=== PATIENT | female | born 1975 | race Caucasian/White ===

== ENCOUNTER 2016-11-28 11:56 | Observation (INO) | payer OTHER ==
[2016-11-28] MEDS ORDERED: ASPIRIN 81 MG CHEW PO STA (12:43)
[2016-11-28] MEDS ORDERED: SODIUM CHLORIDE 0.9% 500 ML IV STA (12:43)
--- NOTE | 2016-11-28 12:54 | ED ---
Chest Pain HPI - General Chief Complaint: Chest Pain Stated Complaint: chest pain Time Seen by Provider: 11/28/16 12:39 Source: patient, RN notes reviewed Mode of arrival: ambulatory Limitations: no limitations - History of Present Illness Initial Comments: 40 yo female presents to the ER with cc of chest pain and left arm pain. Patient states that about 3 days ago she started to develop some nausea and some chest discomfort. This time the patient currently is having pain 6 out of 10. Patient states that she did have a syncopal episode at home as well and she fell forward. Patient states that her symptoms continued to occur on and off but now her chest and she does not when away. Patient states stabbing pain in the center and also feels like a heaviness. Patient states she does radiate down the left arm. Patient states that she has had nausea vomiting with this as well. Patient denies any fever chills cough cold runny nose. Patient denies any significant cardiac history and her family are with her besides high blood pressure. Patient stated she was concerned because her pain was just not going away so she thought that she should be evaluated. Patient denies any recent fever, chills, back pain, abdominal pain, nausea vomiting, numbness or tingling, dysuria or hematuria, constipation or diarrhea, headaches or visual changes, or any other current symptoms. - Related Data Home Medications Medication Instructions Recorded Confirmed Gabapentin [Neurontin] 300 mg PO TID 11/28/16 11/28/16 Ibuprofen [Motrin] 600 mg PO Q6HR PRN 11/28/16 11/28/16 Imipramine HCl [Tofranil] 50 mg PO DAILY 11/28/16 11/28/16 busPIRone HCL 15 mg PO BID 11/28/16 11/28/16 Allergies Allergy/AdvReac Type Severity Reaction Status Date / Time No Known Allergies Allergy Verified 07/31/16 21:05 Review of Systems ROS Statement: Those systems with pertinent positive or pertinent negative responses have been documented in the HPI. ROS Other: All systems not noted in ROS Statement are negative. EKG Findings - EKG Comments: EKG Findings:: normal sinus rhythm 98 bpm, normal axis, no atopy, no S-T depressions or elevations, Past Medical History Past Medical History: GERD/Reflux, Osteoarthritis (OA), Rheumatoid Arthritis (RA ) Additional Past Medical History / Comment(s): CHRONIC BACK PAIN, sjogrens History of Any Multi-Drug Resistant Organisms: None Reported Past Surgical History: Breast Surgery, Section, Tonsillectomy Additional Past Surgical History / Comment(s): LT BREAST BX. Past Anesthesia/Blood Transfusion Reactions: No Reported Reaction Past Psychological History: Anxiety, Panic Disorder Smoking Status: Current every day smoker Past Alcohol Use History: Occasional Additional Past Alcohol Use History / Comment(s): HX ETOH ABUSE. NO LONGER DRINKING AT ALL. Past Drug Use History: None Reported - Past Family History Father Family Medical History: CVA/TIA Additional Family Medical History / Comment(s): DAD= EMPHYZEMA. (MOM= HTN) Mother Family Medical History: Hypertension General Exam - General Exam Comments Initial Comments: General: The patient is awake and alert, in no distress, and does not appear acutely ill. Eye: Pupils are equal, round and reactive to light, extra-ocular movements are intact; there is normal conjunctiva bilaterally. No signs of icterus. Ears, nose, mouth and throat: There are moist mucous membranes and no oral lesions. Neck: The neck is supple, there is no tenderness. Cardiovascular: There is a regular rate and rhythm. No murmur, rub or gallop is appreciated. Ecchymosis to the chest wall. Respiratory: Lungs are clear to auscultation, respirations are non-labored, breath sounds are equal. No wheezes, stridor, rales, or rhonchi. Gastrointestinal: Soft, non-distended, non-tender abdomen without masses or organomegaly noted. There is no rebound or guarding present. No CVA tenderness. Bowel sounds are unremarkable. Back: There is no tenderness to palpation in the midline. There is no obvious deformity. No rashes noted. Musculoskeletal: Normal ROM, no tenderness, There is no pedal edema. There is no calf tenderness or swelling. Sensation intact. Pulses equal bilaterally 2+. Neurological: CN II-XII intact, There are no obvious motor or sensory deficits. Coordination appears grossly intact. Speech is normal. Skin: Skin is warm and dry and no rashes or lesions are noted. Psychiatric: Cooperative, appropriate mood & affect, normal judgment. Limitations: no limitations Course Vital Signs 11/28/16 11/28/16 11/28/16 12:19 13:00 13:11 Temperature 96.7 F L Pulse Rate 103 H 92 Pulse Rate [ 86 Rf Design Engineer ] Respiratory 20 20 Rate Blood Pressure 185/123 134/73 O2 Sat by Pulse 99 100 Oximetry 11/28/16 11/28/16 11/28/16 14:10 14:34 15:00 Temperature Pulse Rate 103 H 96 96 Pulse Rate [ Rf Design Engineer ] Respiratory 16 18 18 Rate Blood Pressure 135/78 145/76 153/75 O2 Sat by Pulse 100 100 99 Oximetry Chest Pain MDM - MDM 40-year-old female presents emergency Department chief complaint of chest pain and shortness of breath that radiates in left arm with a history of nausea. At this time the patient's lab work is reviewed that shows no acute findings. This time there is concerned due to the patient's multiple symptoms were cardiac in origin. This was opened the patient we will start her on appropriate medications and we will have cardiology see her for cardiac rule out. This is discussed with Dr. Karan navarro as well as Dr. Chavez who do agree with The plan. Disposition Clinical Impression: Unstable angina Disposition: ADMITTED IP TO THIS [facility] Condition: Stable Time of Disposition: 15: Decision Date: 11/28/16 Decision Time: 15:27
[2016-11-28 13:18] LABS: Amylase <30 U/L (30-110); Anion Gap 12 mmol/L; Calcium 9.6 mg/dL (8.4-10.2); Carbon Dioxide 25 mmol/L (22-30); Chloride 103 mmol/L (98-107); Glucose 83 mg/dL (74-99); Non-African American GFR(MDRD) >60 (>60 ml/min/1.73 sqM); Sodium 140 mmol/L (137-145); Total Bilirubin 1.3 mg/dL (0.2-1.3); Total Protein 8.3 g/dL (6.3-8.2)
[2016-11-28 13:19] LABS: ALT 39 U/L (9-52); AST 38 U/L (14-36); Alkaline Phosphatase 115 U/L (38-126); Blood Urea Nitrogen 9 mg/dL (7-17); Magnesium 1.5 mg/dL (1.6-2.3); Potassium 4.2 mmol/L (3.5-5.1)
[2016-11-28] MEDS ORDERED: NITROGLYCERIN SL TABS 0.4 MG TAB SUBLINGUAL STA (13:22)
[2016-11-28 13:26] LABS: Basophils % (A) 0 %; CH 31.7; CHCM 34.5; Eosinophils # (A) 0.2 k/uL (0-0.7); Eosinophils % (A) 2 %; HCT 43.9 % (34.0-46.0); HDW 2.82; HGB 14.9 gm/dL (11.4-16.0); Luc % (Auto) 2; Lymphocytes # (A) 1.3 k/uL (1.0-4.8); Lymphocytes % (A) 13 %; MCH 31.4 pg (25.0-35.0); MCV 92.5 fL (80.0-100.0); Mean Platelet Volume 7.1; Monocytes # (A) 0.9 k/uL (0-1.0); Monocytes % (A) 8 %; Neutrophils # (A) 7.9 k/uL (1.3-7.7); Neutrophils % (A) 75 %; RBC 4.75 m/uL (3.80-5.40); RDW 13.4 % (11.5-15.5); WBC 10.5 k/uL (3.8-10.6); WBC (Perox) 10.73
[2016-11-28 13:30] LABS: INR 1.1 (<1.1); Partial Thromboplastin Time 24.6 sec (22.0-30.0)
[2016-11-28 13:32] LABS: Creatine Kinase 36 U/L (30-135)
[2016-11-28 13:45] LABS: Creatine Kinase MB 0.5 ng/mL (0.0-2.4); Troponin I <0.012 ng/mL (0.000-0.034)
--- NOTE | 2016-11-28 14:00 | XR ---
EXAMINATION TYPE: XR chest 2V DATE OF EXAM: 11/28/2016 1:57 PM COMPARISON: Prior chest x-ray June 12, 2016. HISTORY: Chest pain today. TECHNIQUE: Frontal and lateral views of the chest are obtained. FINDINGS: Somewhat low lung volumes are redemonstrated. There is no focal air space opacity, pleural effusion, or pneumothorax seen. The cardiac silhouette size is within normal limits. The osseous structures are intact. IMPRESSION: No acute process. No significant change from prior.
[2016-11-28] MEDS ORDERED: MORPHINE SULFATE 4 MG/ML SYRINGE IV STA (14:13)
[2016-11-28] MEDS ORDERED: LORazepam 1 MG TAB PO STA (14:54)
[2016-11-28] MEDS ORDERED: NITROGLYCERIN SL TABS 0.4 MG TAB SUBLINGUAL PRN (15:27)
[2016-11-28] MEDS ORDERED: HEPARIN SODIUM,PORCINE 5,000 UNIT/ML 1 ML VIAL IV ONE (15:27)
[2016-11-28] MEDS ORDERED: IBUPROFEN 200 MG TAB PO PRN (15:29)
[2016-11-28] MEDS ORDERED: HEPARIN SODIUM,PORCINE/D5W PMX 25,000 UNIT in DEXTROSE/WATER 1 500ML.BAG IV SCH (15:30)
[2016-11-28] MEDS: SODIUM CHLORIDE 0.9% 1,000 ML IV SCH (16:49)
[2016-11-28] MEDS: MAGNESIUM SULFATE-D5W PMX 1 GM in DEXTROSE/WATER 1 100ML.BAG IVPB SCH (16:54)
[2016-11-28 17:58] VITALS: BMI 34.2
[2016-11-28] MEDS: traMADol 50 MG TAB PO PRN (18:46)
[2016-11-28 19:01] LABS: Creatine Kinase 37 U/L (30-135)
[2016-11-28 19:14] LABS: Creatine Kinase MB 0.4 ng/mL (0.0-2.4); Troponin I <0.012 ng/mL (0.000-0.034)
[2016-11-28] MEDS: NITROGLYCERIN OINT 1 INCH/GM PACKET TOPICAL SCH (20:39)
--- NOTE | 2016-11-28 21:07 | HP ---
DATE OF ADMISSION: 11/28/2016 Patient is a 40 -year-old female, came in with chest discomfort. The patient had a fall. Patient has a bruise on the chest and patient was complaining of heaviness of the chest, 6/10, constant in nature, not associated with diaphoresis, nausea, vomiting. Patient's chest pain is mostly related to bruise but since it is radiating to the left arm, patient came to ER. Patient had syncopal episode about a week ago. At that time, patient was having diarrhea. The patient appears to have ( ) at that time and her diarrhea resolved. The patient is although still having upper GI symptoms of nausea and epigastric abdominal burning sensation. Patient uses naproxen for her back. Patient probably has gastritis, both gastritis as well as gastroenteritis and food poisoning. Because of patient was probably dehydrated a little bit and had a syncopal episode. Patient denied any lightheadedness at this point of time. Patient denied any fever or chills. Patient denied any nausea, vomiting at this point of time. Patient denied any diarrhea. Patient was a little nauseous. REVIEW OF SYSTEMS: CONSTITUTIONAL: No fever, no malaise, no fatigue. HEENT: No recent visual problems or hearing problems. Denied any sore throat. CARDIOVASCULAR: as described in HPI. PULMONARY: No shortness of breath, no cough, no hemoptysis. GASTROINTESTINAL: as described in HPI. The patient denied orthopnea, PND. NEUROLOGICAL: No headaches, no weakness, no numbness. HEMATOLOGICAL: Denies any bleeding or petechiae. GENITOURINARY: Denies any burning micturition, frequency, or urgency. MUSCULOSKELETAL/RHEUMATOLOGICAL: Denies any joint pain, swelling, or any muscle pain. ENDOCRINE: Denies any polyuria or polydipsia. The rest of the 14 point review of systems is negative. ALLERGIES: No known drug allergies. PAST MEDICAL HISTORY: Significant for gastroesophageal reflux disease, osteoarthritis, rheumatoid arthritis. Patient does use Prilosec at home, breast surgery, section, tonsillectomy, anxiety, panic disorder. The patient does smoke. Denied any alcohol abuse or any drug abuse. The patient used to be an alcoholic, she quit years ago. FAMILY HISTORY: Significant for father with CVA. Mother had hypertension. PHYSICAL EXAMINATION: Temperature 97.6, pulse of 102. The patient pulse goes up to as high as 103, and respiratory rate of 20, blood pressure 134/73. Saturating at 100% on room air. GENERAL: The patient is alert and oriented x3, not in any acute distress. Well developed, well nourished. HEENT: Pupils are round and equally reacting to light. EOMI. No scleral icterus. No conjunctival pallor. Normocephalic, atraumatic. No pharyngeal erythema. No thyromegaly. CARDIOVASCULAR: S1 and S2 present. No murmurs, rubs, or gallops. PULMONARY: Chest is clear to auscultation, no wheezing or crackles. ABDOMEN: Soft, nontender, nondistended, normoactive bowel sounds. No palpable organomegaly. MUSCULOSKELETAL: No joint swelling or deformity. EXTREMITIES: No cyanosis, clubbing, or pedal edema. NEUROLOGICAL: Gross neurological examination did not reveal any focal deficits. SKIN: No rashes. Chest wall examination, patient has a bruise with tenderness on palpation in the bruising area after a fall. LABORATORY DATA: CBC, CMP are abnormal for mildly low magnesium of 1.5, which will be replaced. Laboratory data essentially within normal limits. ASSESSMENT AND PLAN: 1. Syncopal episode probably related to her diarrhea at that time and patient does not have any of those symptoms at this point of time. I will obtain an echocardiogram, but I will not need any further evaluation I believe. 2. Chest wall pain, appears to be completely atypical and related to bruise, cardiology was consulted anyways. We will let them evaluate. We will check with 2 more sets of troponins. I do not believe patient will need any further evaluation for her chest pain. 3. Possible gastritis and gastroenteritis. I asked her to discontinue Motrin. Patient can use tramadol for pain on an as-needed basis and Extra-Strength Tylenol and patient has chronic low back pain. Her ibuprofen will be discontinued and patient will be started on Protonix twice a day here and patient probably will need ( ) patient already takes Prilosec at home. Need to continue that at 40 mg daily for about a month. 4. 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 Patient's primary care physician: None.
[2016-11-28] MEDS: MORPHINE SULFATE 4 MG/ML SYRINGE IV PRN (21:09)
[2016-11-28] MEDS: GABAPENTIN 300 MG CAP PO SCH ×2 (21:41→21:42)
[2016-11-28] MEDS: PANTOPRAZOLE 40 MG/10 ML VIAL IVP SCH (21:42)
[2016-11-28] MEDS: LORazepam 2 MG/ML SYRINGE IV PRN (21:42)
[2016-11-28] MEDS: busPIRone HCl 5 MG TAB PO SCH (21:42)
[2016-11-29] MEDS: NITROGLYCERIN OINT 1 INCH/GM PACKET TOPICAL SCH ×3 (00:07→12:34)
[2016-11-29 00:55] LABS: Cholesterol 181 mg/dL (<200); HDL Cholesterol 70 mg/dL (40-60); Triglycerides 173 mg/dL (<150)
[2016-11-29 00:58] LABS: Creatine Kinase 40 U/L (30-135)
[2016-11-29 01:13] LABS: Creatine Kinase MB 0.5 ng/mL (0.0-2.4); Troponin I <0.012 ng/mL (0.000-0.034)
[2016-11-29] MEDS: MORPHINE SULFATE 4 MG/ML SYRINGE IV PRN ×2 (02:59→07:57)
[2016-11-29] MEDS: SODIUM CHLORIDE 0.9% 1,000 ML IV SCH (06:40)
[2016-11-29] MEDS ORDERED: IMIPRAMINE 25 MG TAB PO SCH (09:00)
[2016-11-29] MEDS ORDERED: ASPIRIN 325 MG TAB PO SCH (09:00)
--- NOTE | 2016-11-29 09:09 | P.CRDCN ---
History of Present Illness Consult date: 11/29/16 Chief complaint: Chest pain History of present illness: This is a pleasant 40-year-old female patient with no significant past medical history but and anxiety presented to the emergency room complaining of chest discomfort. She describes discomfort in the mid of the chest as a sharp kind of discomfort with radiation to the left arm. She was feeling nauseated and she vomited earlier in the week. No shortness of breath. No sweating. The EKG and cardiac enzymes came in to be unremarkable. The patient is not aware of any prior history of coronary artery disease and never seen a dental technician metal in the past. She has no hypertension, diabetes, or dyslipidemia. She doesn't smoke about 4 cigarettes a day and does not drink alcohol. She has no family history of coronary artery disease. I'm going to schedule the patient to undergo stress test and follow-up with her. Past Medical History Past Medical History: GERD/Reflux, Osteoarthritis (OA), Rheumatoid Arthritis (RA ) Additional Past Medical History / Comment(s): CHRONIC BACK PAIN, Sjogrens History of Any Multi-Drug Resistant Organisms: None Reported Past Surgical History: Breast Surgery, Section, Tonsillectomy Additional Past Surgical History / Comment(s): LT BREAST BX. Past Anesthesia/Blood Transfusion Reactions: No Reported Reaction Past Psychological History: Anxiety, Panic Disorder Additional Psychological History / Comment(s): recently began treatment for anxiety Smoking Status: Current some day smoker Past Alcohol Use History: None Reported Additional Past Alcohol Use History / Comment(s): HX ETOH ABUSE. NO LONGER DRINKING AT ALL. Past Drug Use History: None Reported - Past Family History Father Family Medical History: CVA/TIA Additional Family Medical History / Comment(s): DAD= EMPHYZEMA. (MOM= HTN) Mother Family Medical History: Hypertension Medications and Allergies Home Medications Medication Instructions Recorded Confirmed Type Gabapentin [Neurontin] 300 mg PO TID 11/28/16 11/28/16 History Ibuprofen [Motrin] 600 mg PO Q6HR PRN 11/28/16 11/28/16 History Imipramine HCl [Tofranil] 50 mg PO DAILY 11/28/16 11/28/16 History busPIRone HCL 15 mg PO BID 11/28/16 11/28/16 History Allergies Allergy/AdvReac Type Severity Reaction Status Date / Time No Known Allergies Allergy Verified 07/31/16 21:05 Physical Exam Vitals: Vital Signs Temp Pulse Pulse Pulse Resp BP BP 11/29/16 08:00 97.9 F 87 16 11/29/16 04:00 98.0 F 85 16 135/63 11/29/16 00:00 98.3 F 91 16 125/69 11/28/16 20:00 98.5 F 86 16 124/76 11/28/16 17:30 99.1 F 110 H 18 135/98 11/28/16 16:34 98.9 F 96 16 140/67 BP Pulse Ox 11/29/16 08:00 129/60 96 11/29/16 04:00 99 11/29/16 00:00 100 11/28/16 20:00 99 11/28/16 17:30 99 11/28/16 16:34 100 Intake and Output 11/28/16 11/29/16 11/29/16 22:59 06:59 14:59 Intake Total 300 Balance 300 Intake: Oral 300 Other: Voiding Method Toilet Toilet # Voids 1 Weight 85 kg - Constitutional General appearance: no acute distress - Respiratory Respiratory: bilateral: CTA - Cardiovascular Rhythm: regular Heart sounds: normal: S1, S2 Results 11/28/16 12:55 11/28/16 12:55 Cardiac Enzymes 11/28/16 11/29/16 Range/Units 18:30 00:17 CK-MB (CK-2) 0.4 0.5 (0.0-2.4) ng/mL Troponin I <0.012 <0.012 (0.000-0.034) ng/mL Coagulation 11/29/16 Range/Units 00:17 APTT 34.4 H (22.0-30.0) sec Lipids 11/29/16 Range/Units 00:15 Triglycerides 173 H (<150) mg/dL Cholesterol 181 (<200) mg/dL HDL Cholesterol 70 H (40-60) mg/dL Current Medications Generic Name Dose Route Start Last Admin Trade Name Freq PRN Reason Stop Dose Admin Aspirin 325 mg 11/29/16 09:00 Aspirin PO DAILY [facility] Buspirone HCl 15 mg 11/28/16 21:00 11/28/16 21:42 Buspar PO 15 mg BID [facility] Administration Gabapentin 300 mg 11/28/16 16:00 11/28/16 21:42 Neurontin PO 300 mg TID [facility] Administration Heparin Sodium/Dextrose 25,000 500 mls @ 19.82 mls/hr 11/28/16 15:30 16:53 unit/ IV Solution IV 11.5 units/kg/hr .Q24H [facility] 19.82 mls/hr Protocol Administration 11.5 UNITS/KG/HR Sodium Chloride 1,000 mls @ 100 mls/hr 11/28/16 17:00 11/29/16 06:40 Saline 0.9% IV Not Given .Q10H [facility] Imipramine HCl 50 mg 11/29/16 09:00 Tofranil PO DAILY [facility] Lorazepam 0.5 mg 11/28/16 21:31 11/28/16 21:42 Ativan IV 0.5 mg Q8HR PRN Administration Anxiety Morphine Sulfate 4 mg 11/28/16 18:37 11/29/16 07:57 Morphine Sulfate (Inj) IV 4 mg Q5M PRN Administration Chest Pain Nitroglycerin 0.5 inch 11/28/16 18:00 11/29/16 06:40 Nitro-Bid Oint TOPICAL Not Given Q6HR [facility] Nitroglycerin 0.4 mg 11/28/16 15:27 Nitrostat SUBLINGUAL Q5M PRN Chest Pain Pantoprazole Sodium 40 mg 11/28/16 21:00 11/28/16 21:42 Protonix IVP 40 mg BID [facility] Administration Tramadol HCl 50 mg 11/28/16 16:36 11/28/16 18:46 Ultram PO 50 mg QID PRN Administration Pain/Discomfort Intake and Output 11/28/16 11/29/16 11/29/16 22:59 06:59 14:59 Intake Total 300 Balance 300 Intake: Oral 300 Other: Voiding Method Toilet Toilet # Voids 1 Weight 85 kg Assessment and Plan Plan: Assessment #1 atypical chest pain #2 anxiety Plan #1 proceeding with a stress test #2 follow-up with the patient
[2016-11-29] MEDS: LORazepam 2 MG/ML SYRINGE IV PRN (09:12)
--- NOTE | 2016-11-29 10:10 | ECHOF ---
Referral Reason:Syncope MEASUREMENTS -------- HEIGHT: 157.5 cm WEIGHT: 86.2 kg BP: 140/67 RVIDd: 2.6 cm (< 3.3) IVSd: 1.1 cm (0.6 - 1.1) LVIDd: 4.7 cm (3.9 - 5.3) LVPWd: 1.1 cm (0.6 - 1.1) IVSs: 1.5 cm LVIDs: 3.3 cm LVPWs: 1.6 cm LA Diam: 3.1 cm (2.7 - 3.8) Ao Diam: 3.2 cm (2.0 - 3.7) AV Cusp: 2.2 cm (1.5 - 2.6) MV EXCURSION: 10.022 mm (> 18.000) MV EF SLOPE: 53 mm/s (70 - 150) EPSS: 0.7 cm MV E Jayce: 0.84 m/s MV DecT: 236 ms MV A Jayce: 0.81 m/s MV E/A Ratio: 1.04 FINDINGS -------- Sinus rhythm. This was a technically good study. The left ventricular size is normal. There is borderline concentric left ventricular hypertrophy. Overall left ventricular systolic function is normal with, an EF between 60 - 65 %. The right ventricle is normal in size and function. The left atrial size is normal. The right atrium is normal in size. The aortic valve is trileaflet and appears structurally normal. There is trace mitral regurgitation. The tricuspid valve appears structurally normal. Trace/mild (physiologic) pulmonic regurgitation. The aortic root size is normal. Normal inferior vena cava with normal inspiratory collapse consistent with estimated right atrial pressure of 5 mmHg. There is no pericardial effusion. CONCLUSIONS -------- 1. Sinus rhythm. 2. The tricuspid valve appears structurally normal. 3. Trace/mild (physiologic) pulmonic regurgitation. 4. The aortic root size is normal. 5. Normal inferior vena cava with normal inspiratory collapse consistent with estimated right atrial pressure of 5 mmHg. 6. There is no pericardial effusion. 7. This was a technically good study. 8. The left ventricular size is normal. 9. There is borderline concentric left ventricular hypertrophy. 10. Overall left ventricular systolic function is normal with, an EF between 60 - 65 %. 11. The right ventricle is normal in size and function. 12. The left atrial size is normal. 13. The aortic valve is trileaflet and appears structurally normal. 14. There is trace mitral regurgitation. TUFTING MACHINE FIXER: Roma Lua RDCS
[2016-11-29] MEDS: GABAPENTIN 300 MG CAP PO SCH (10:25)
[2016-11-29] MEDS: busPIRone HCl 5 MG TAB PO SCH (10:26)
[2016-11-29] MEDS: PANTOPRAZOLE 40 MG/10 ML VIAL IVP SCH (10:26)
--- NOTE | 2016-11-29 10:56 | ECHOS ---
DATE OF SERVICE: 11/29/2016 AGE: 40Y SEX: F HT: 62" WT: 187 lbs. Protocol Gato: X Others: Stress Echo Stage: III Dur. of Exercise: 9 minutes *Heart Rate Blood Pressure *Rest: 103 Rest: 103/49 * *Max. Achieved: 153 Maximum BP: 163/65 85% PMHR: 154 100% PMHR: 181 *METS: 10.1 INDICATIONS: Chest pain. MEDICATIONS: Gabapentin, ibuprofen, imipramine. CLINICAL INFORMATION: Patient is admitted to the hospital with chest pain, shortness of breath, hypertension, family history of coronary artery disease, history of smoking a half a pack of cigarettes a day for 25 years. Resting ECG shows sinus rhythm, rate of 103 beats per minute, sinus tachycardia with normal ND interval, normal QRS, normal ST-T waves. Utilizing a standard Gato protocol, a symptom limited treadmill test was performed. Patient exercised for total of 9 minutes, attained a peak heart rate of 153 beats per minute, which is approximately 84% predicted maximum heart rate without any chest pain or pressure or ST segment deviations indicative of ischemia. Exercise test was terminated because of fatigue and shortness of breath. No cardiac arrhythmias are noted throughout the study. Baseline images show normal thickening and contractility. Postexercise images show improved contractility and thickening consistent with normal study. CARDIOLOGISTS IMPRESSION: 1. Normal stress echocardiogram at 84% predicted maximum heart rate. 2. Patient did not report any symptoms throughout the study. 3. Patient has average level of cardiopulmonary fitness as indicated by VO2 max and METs.
[2016-11-29 11:48] VITALS: BP 116/55; PULSE 85; RESP 18; TEMP 98.1
[2016-11-29] MEDS: traMADol 50 MG TAB PO PRN (12:23)
--- NOTE | 2016-12-02 11:00 | DS ---
DATE OF ADMISSION: 11/28/2016 DATE OF DISCHARGE: 11/29/2016 PROCEDURES: Cardiology consultation and stress echo. DISCHARGE DIAGNOSES: 1. Atypical chest pain; rule out acute coronary syndrome. Negative stress echocardiogram. 2. Anxiety. 3. Chronic back pain. 4. Neuropathy. 5. Possible gastritis with recent gastroenteritis. HOSPITAL COURSE: Ms. Jenkins is a 41-year-old female without significant past medical history except anxiety and low back pain, came to the hospital with complaints of chest pain not associated with nausea, vomiting or diaphoresis. The patient did have recent diarrhea which is improved at this time. Otherwise, the patient was seen by cardiology and serial EKGs and troponins were negative. The patient underwent a stress echocardiogram, showed normal stress echocardiogram at 84% predicted maximum heart rate. Otherwise the patient is cleared from cardiac standpoint for discharge. Patient currently is chest pain free. The patient is being discharged home in stable condition. DISCHARGE PHYSICAL EXAM: A 41-year-old female, lying in bed comfortably. She is alert and oriented x3. The patient is in apparent distress. VITALS: Blood pressure is 116/55, pulse 85, respirations 18, temperature afebrile, pulse ox 98% on 2 liters nasal cannula. LABORATORY DATA: Reviewed. Discharge physical examination done. DISCHARGE MEDICATIONS INCLUDE: 1. Gabapentin 300 mg p.o. t.i.d. 2. Imipenem 50 mg p.o. daily. 3. Buspirone 50 mg p.o. b.i.d. 4. Xanax 0.25 mg p.o. at bedtime p.r.n. 5. Protonix 40 mg. 6. Tramadol 50 mg p.o. q.i.d. 7. Ibuprofen has been discontinued. The patient is being discharged home in stable condition. Follow up with Dr. Coburn in the clinic. Follow up with Dr. Mcguire as needed.
== END 2016-11-29 15:40 | disposition home or self-care (01) ==
LOC: EC 11:56 → 3OBS 15:27 → 6SEL 16:31 → 3OBS 20:12
PROVIDERS: ADMIT Internal Medicine; ATTEND Internal Medicine
DX: R07.89 Other chest pain (principal); F41.9 Anxiety disorder, unspecified; R55 Syncope and collapse; S20.219A Contusion of unspecified front wall of thorax, initial encounter; M79.602 Pain in left arm; K21.9 Gastro-esophageal reflux disease without esophagitis; R11.2 Nausea with vomiting, unspecified; F17.210 Nicotine dependence, cigarettes, uncomplicated; M19.90 Unspecified osteoarthritis, unspecified site; M06.9 Rheumatoid arthritis, unspecified; G62.9 Polyneuropathy, unspecified; G89.29 Other chronic pain; M54.9 Dorsalgia, unspecified; M35.00 Sjogren syndrome, unspecified; F41.0 Panic disorder [episodic paroxysmal anxiety]; Z82.49 Family history of ischemic heart disease and other diseases of the circulatory system; Z82.3 Family history of stroke; W18.39XA Other fall on same level, initial encounter; Y93.9 Activity, unspecified; Y92.019 Unspecified place in single-family (private) house as the place of occurrence of the external cause
CPT/HCPCS: 36415; 93005; 93017; 93306; 93350; 85379; 80061; 80053; 82150; 82550 ×2; 82553 ×2; 83690; 83735; 84484 ×2; 85025; 85610; 85730 ×2; 71020; 99285; 96375; 96376; 96361; G0378 ×3; J2060 ×2; J2270 ×2; J1644 ×2; J3475; C9113 ×2; 96366; 96367

== ENCOUNTER → 2017-01-28 | Outpatient (CLI) | payer OTHER ==
--- NOTE | 2017-01-28 11:08 | XR ---
EXAMINATION TYPE: XR hand complete RT DATE OF EXAM: 01/28/2017 11:01 AM CLINICAL HISTORY: Hand injury with pain. TECHNIQUE: Frontal, lateral and oblique images of the right hand are obtained. COMPARISON: Bilateral hand x-ray June 23, 2014 FINDINGS: Evaluation of phalanges is suboptimal due to incomplete extension There is no acute fractu re/dislocation evident in the right hand. The joint spaces in the right hand otherwise appear within normal limits. Mild soft tissue swelling at PIP joints diffusely is noted. IMPRESSION: There is no acute fracture or dislocation in the right hand. Mild focal swelling at PIP joints is noted.
== END ==
LOC: RADXRMAIN 10:44
PROVIDERS: ATTEND Emergency Medicine
DX: M25.441 Effusion, right hand (principal)

== ENCOUNTER → 2017-04-01 | Outpatient (CLI) | payer OTHER ==
--- NOTE | 2017-04-01 11:46 | MR ---
EXAMINATION TYPE: MR cervical spine wo/w con DATE OF EXAM: 04/01/2017 11:22 AM COMPARISON: X-ray 06/23/2014 HISTORY: Cervicalgia, Lumbago TECHNIQUE: Multiplanar, multisequence images of the cervical spine were acquired utilizing 18 mL intravenous Mul tiHance gadolinium contrast. Diffusion weighted imaging was performed. C2-C3: No evidence for degenerative disc disease. No disc bulge/herniation or protrusion. No Canal stenosis. Foramina are patent bilaterally. C3-C4: Vertebral joint hypertrophy on the right with mild facet arthropathy. There is mild right-side d foraminal encroachment. C4-C5: Degenerative disc disease with facet arthropathy. There is right paracentral lateral disc bulg ing capped by spur with moderate right foraminal encroachment. No Canal stenosis. Mild effacement of thecal sac anterolaterally to the right. C5-C6: Broad-based central disc protrusion which results in significant canal stenosis and abuts the anterior margin of the spinal cord. Uncovertebral joint hypertrophy results in mild bilateral foramin al encroachment. C6-C7: No evidence for degenerative disc disease. No disc bulge/herniation or protrusion. No Canal stenosis. Foramina are patent bilaterally. C7-T1: No evidence for degenerative disc disease. No disc bulge/herniation or protrusion. No Canal stenosis. Foramina are patent bilaterally. Cervical segments are intact. There is normal alignment. Cervical spinal cord demonstrates multiple areas of abnormal signal including C2-3, C3-4 and more pronounced at levels C5 through the upper mar gin of T2 with cord expansion at the level C6-T1. No enhancement is seen. Finding likely represents a large syrinx. Myelomalacia or myelitis less likely given the appearance. Lack of enhancement suggest s neoplasm less likely. Maximal dimension of the abnormal signal measures 8 mm in AP dimension. Shotty adenopathy in the carotid space bilaterally IMPRESSION: 1. Large area of abnormal signal within the spinal cord with no evidence of enhancement. Maximal dime nsion measures 8 mm with expansion of the cord as discussed above. Most likely etiology is a large sy rinx. Correlate clinically. 2. Multilevel degenerative disc disease with hypertrophic changes and disc bulging at C4-C5 paracentr al and laterally to the right with right-sided foraminal encroachment. 3. Broad-based disc protrusion capped by spur C5-C6 results in mild anterior compression of the the spinal cord and results in significant canal stenosis and bilateral foraminal encroachment. A [employer] message has been communicated to Johnny Santacruz MD via the [employer] system on 04/01/2017 11:40 AM, Message ID [id number].
--- NOTE | 2017-04-01 11:58 | MR ---
MR lumbar spine wo con lumbago Multiplanar, multiecho imaging of the lumbar spine was obtained without contrast on a 3 Keisha magnet. REFERENCE:None. FINDINGS: Paravertebral soft tissues are normal. Vertebral body height and alignment are maintained. There is no spondylolysis or spondylolisthesis. There is a prominent central canal or small syrinx involving the conus of the spinal cord extending f rom the superior endplate of L1 to the superior endplate of L2. There is abnormal signal within the c ord in the lower dorsal spine. This is not imaged on the axial dataset. At T12-L1, no definite abnormality is seen. At L1-2, there is mild capsulitis and hypertrophic changes within the facets. At L2-3, there is mild hypertrophic change and capsulitis within the facets. There is minimal trefoil ing. At L3-4, there is mild hypertrophic change and capsulitis within the facets. There is a minimal diffu se disc displacement mildly effacing the thecal sac. At L4-5, there is mild hypertrophic change and capsulitis within the facets. At L5-S1, there is mild hypertrophic change and capsulitis within the facets. IMPRESSION: 1. PROMINENT CENTRAL CANAL OR SMALL SYRINX WITHIN THE CONUS MEDULLARY IS. 2. QUESTIONABLE SYRINX AT THE LEVEL OF T10-11. MRI OF THE THORACIC SPINE WOULD BE SUGGESTED. 3. NO SIGNIFICANT COMPRESSIVE DISCOPATHY OR NEURAL COMPRESSION. 4. DIFFUSE FACET ARTHROPATHY.
== END | disposition home or self-care (01) ==
LOC: RADMRIMAIN 10:17
PROVIDERS: ATTEND Psychiatry & Neurology Neurology
DX: M48.02 Spinal stenosis, cervical region (principal); M50.221 Other cervical disc displacement at C4-C5 level; M50.222 Other cervical disc displacement at C5-C6 level; M50.30 Other cervical disc degeneration, unspecified cervical region; M46.06 Spinal enthesopathy, lumbar region; M54.5 Low back pain
CPT/HCPCS: 72148; 72156; A9577

== ENCOUNTER → 2017-04-24 | Outpatient (CLI) | payer OTHER ==
--- NOTE | 2017-04-24 09:42 | MR ---
EXAMINATION TYPE: MR thoracic spine wo/w con DATE OF EXAM: 04/24/2017 COMPARISON: MRI cervical spine 04/01/2017 Contrast: 15 mL MultiHance HISTORY: tsp pain CONTRAST: Standard multiplanar, multisequence MRI departmental protocol utilizing 15 mL intravenous MultiHance gadolinium contrast. FINDINGS: Alignment is anatomic. There is loss of disc signal at T7-T8, T8-T9 and T9-T10 with loss of disc spac e compatible with degenerative disc disease. Abnormal signal seen within the cervical thoracic spinal cord with expansion as previously noted by p revious MRI compatible with large syrinx. Additionally at the level of T9-T11 there also is a large a jonny of abnormal signal within the final cord expansion of the cord measuring a maximal dimension of 4 .4 x 4.9 mm. No enhancement finding also compatible with additional area of syrinx. At T6-T7 there is a left paracentral disc herniation which results in distortion of the thecal sac an d encroaches upon the left anterolateral margin of the spinal cord. No compression. T8-T9 there is a broad-based right paracentral disc herniation distortion of thecal sac. No spinal co rd contact or canal stenosis. At T9-T10 there is a right paracentral disc bulge. No canal stenosis or foraminal encroachment. IMPRESSION: 1. Multiple large areas of abnormal signal within the spinal cord most typical of syrinx. 2. Disc herniation T6-T7, T8-T9 and disc bulging T9-T10 as discussed above.
== END | disposition home or self-care (01) ==
LOC: RADMRIMAIN 07:06
PROVIDERS: ATTEND Psychiatry & Neurology Neurology
DX: M51.24 Other intervertebral disc displacement, thoracic region (principal); G95.0 Syringomyelia and syringobulbia
CPT/HCPCS: 72157; A9577

== ENCOUNTER → 2017-06-18 | Outpatient (CLI) | payer OTHER ==
--- NOTE | 2017-06-18 13:22 | MR ---
EXAMINATION TYPE: MR brain wo/w con DATE OF EXAM: 06/18/2017 COMPARISON: Correlation CT 07/31/2016 HISTORY: 41 year-old female with csp/tsp syrinx TECHNIQUE: Multiplanar, multisequence images of the brain and brainstem is performed without and with IV contrast, utilizing 15 mL intravenous MultiHance . FINDINGS: Diffusion weighted images demonstrate no evidence of a recent infarct or other diffusion abnormality. There is no extra-axial fluid collection. T2/FLAIR weighted sequences show solitary 1.1 x 0.7 cm bright signal focus in the left periatrial whi te matter, axial image 17. This shows corresponding low T1 signal and no postcontrast enhancement. The ventricular system and cisternal spaces are normal in size and appearance. The brain volume is a ge appropriate. Midline structures demonstrate normal morphology. The craniocervical junction appears within normal limits. Specifically, no evidence for Chiari malformation/cerebellar tonsillar herniation. Post contrast images demonstrate no abnormal enhancement. The dural venous sinuses appear patent. There is trace mucosal thickening within the ethmoid air cells and maxillary sinuses with rightward n mu septal deviation. Artifacts distort the globes. IMPRESSION: 1. No acute intracranial abnormality seen. 2. Solitary 1.1 cm patch of bright white matter change in the left periatrial region. This could refl ect chronic ischemic changes. Findings are nonspecific. If concern for early demyelinating process, f ollow-up can be performed. 3. No cerebellar tonsillar ectopia or evidence for Chiari malformation.
== END | disposition home or self-care (01) ==
LOC: RADMRIMAIN 07:29
PROVIDERS: ATTEND Nurse Practitioner Acute Care
DX: R90.89 Other abnormal findings on diagnostic imaging of central nervous system (principal); G95.89 Other specified diseases of spinal cord
CPT/HCPCS: 70553; A9577

== ENCOUNTER → 2017-10-28 | Outpatient (CLI) | payer OTHER ==
[2017-10-28 12:40] LABS: CH 30.8; CHCM 32.5; HDW 2.36; HGB 15.1 gm/dL (11.4-16.0); MCH 30.6 pg (25.0-35.0); MCHC 32.1 g/dL (31.0-37.0); MCV 95.2 fL (80.0-100.0); Mean Platelet Volume 8.4; RBC 4.94 m/uL (3.80-5.40); RDW 14.8 % (11.5-15.5); WBC 6.9 k/uL (3.8-10.6)
[2017-10-28 12:41] LABS: Prothrombin Time 10.2 sec (9.0-12.0)
[2017-10-28 12:55] LABS: Appearance,Urine Clear (Clear); Bilirubin,Urine Negative (Negative); Glucose,Urine (UA) Negative (Negative); Ketones,Urine Negative (Negative); Leukocyte Esterase,Urine Negative (Negative); Nitrite,Urine Negative (Negative); Protein,Urine Negative (Negative); Specific Gravity,Urine 1.003 (1.001-1.035); UA Billing (MACRO vs. MICRO) CHEM; Urobilinogen,Urine <2.0 mg/dL (<2.0)
[2017-10-28 13:02] LABS: Anion Gap 8 mmol/L; Blood Urea Nitrogen 14 mg/dL (7-17); Calcium 10.3 mg/dL (8.4-10.2); Carbon Dioxide 28 mmol/L (22-30); Chloride 101 mmol/L (98-107); Glucose 100 mg/dL (74-99); Non-African American GFR(MDRD) >60 (>60 ml/min/1.73 sqM); Potassium 4.9 mmol/L (3.5-5.1); Sodium 137 mmol/L (137-145)
--- NOTE | 2017-10-28 15:00 | XR ---
EXAMINATION TYPE: XR chest 2V DATE OF EXAM: 10/28/2017 COMPARISON: 11/28/2016 HISTORY: 41-year-old female preoperative testing TECHNIQUE: Frontal and lateral views FINDINGS: The cardiomediastinal silhouette, aorta, and pulmonary vasculature are within normal limits. Lungs an d pleural spaces are clear. IMPRESSION: No acute cardiopulmonary process.
== END | disposition home or self-care (01) ==
LOC: LABWHC1 11:53
PROVIDERS: ATTEND Neurological Surgery
DX: Z01.818 Encounter for other preprocedural examination (principal); Z01.812 Encounter for preprocedural laboratory examination
CPT/HCPCS: 36415; 71020; 80048; 81003; 85027; 85610; 85730; 87086; 93005

== ENCOUNTER → 2017-12-02 | Outpatient (CLI) | payer OTHER ==
--- NOTE | 2017-12-02 15:15 | XR ---
EXAMINATION TYPE: XR cervical spine limited DATE OF EXAM: 12/02/2017 CLINICAL HISTORY: pain TECHNIQUE: 3 views of the cervical spine are submitted. COMPARISON: 06/23/2014 FINDINGS: There is satisfactory in alignment without evidence of acute fracture or dislocation. The pre-vertebral soft tissue appears within normal limits. Fusion changes at C5-6 with normal post oper ative alignment. Mild degenerative narrowing at C4-5. Mild ventral spondylosis. The C1-C2 articulatio n is unremarkable on the open mouth view. IMPRESSION: Fusion changes at C5-6 normal postoperative alignment.
== END | disposition home or self-care (01) ==
LOC: RADXRMAIN 14:33
PROVIDERS: ATTEND Physician Assistant
DX: M48.02 Spinal stenosis, cervical region (principal); Z98.1 Arthrodesis status
CPT/HCPCS: 72040

== ENCOUNTER → 2017-12-04 | Outpatient (CLI) | payer OTHER ==
[2017-12-04 13:49] VITALS: BP 124/57; PULSE 75; RESP 16
--- NOTE | 2017-12-04 14:11 | P.HPIM ---
History of Present Illness H&P Date: 12/04/17 Chief Complaint: spinal pain This is a 42-year-old patient referred by Dr. Coburn for chronic pain in neck, mid -back, and low back. Patient had been taking medications from primary care physician including [place] medications with some relief but did not like the side effects. Patient denies adverse drug effects from current OTC medications. Patient also denies new-onset weakness, bowel/bladder incontinence , or any other signs or symptoms of cauda equina syndrome. There are no signs of acute intoxication, and no indications of medication diversion or overuse. Patient notes that pain worsens significantly with standing and walking, and improves with sitting and medication. Patient has used several types of medications for pain, including NSAIDS, OPIOIDS, TRAMADOL. Patient HAS had neck surgery in October 2017. Patient HAS NOT had injections previously. Patient HAS NOT had physical therapy recently. In addition to above, 13-point review of systems is also negative for chest pain , shortness of breath, changes in vision, changes in hearing, new onset weakness , abdominal pain, diarrhea, extreme fatigue, malaise, fever, skin changes, homicidal or suicidal ideation, or bowel or bladder incontinence. Vital Signs: Reviewed in EMR Gen: WDWN, AAOx3, NAD HEENT: NCAT, EOMI, hearing grossly normal Pulm: resp unlabored Abd: soft, NT, ND Neck: supple, trachea midline ROM in flexion lumbar spine: reduced ROM in extension lumbar spine: reduced Lumbar paravertebral tenderness: + Facet loading: + bilateral, L > R SI joint tenderness: + R side Jeremiah's test: + R side Straight leg raise: neg Neuro: CN II-XII grossly intact, muscle strength lower extremities PRESERVED Past Medical History Past Medical History: GERD/Reflux, Osteoarthritis (OA), Rheumatoid Arthritis (RA ) Additional Past Medical History / Comment(s): CHRONIC BACK PAIN, Sjogrens History of Any Multi-Drug Resistant Organisms: None Reported Past Surgical History: Breast Surgery, Section, Tonsillectomy Additional Past Surgical History / Comment(s): LT BREAST BX. cervical spine fusion surgery Past Anesthesia/Blood Transfusion Reactions: No Reported Reaction Past Psychological History: Anxiety, Panic Disorder Smoking Status: Current some day smoker Past Alcohol Use History: None Reported Past Drug Use History: None Reported - Past Family History Father Family Medical History: CVA/TIA Additional Family Medical History / Comment(s): DAD= EMPHYZEMA. (MOM= HTN) Mother Family Medical History: Hypertension Medications and Allergies Home Medications Medication Instructions Recorded Confirmed Type Pantoprazole Sodium [Protonix] 40 mg PO AC-BRKFST #30 tablet. 11/29/16 Rx Methocarbamol [Robaxin] 500 mg PO QID PRN 11/06/17 12/04/17 History Sertraline [Zoloft] 50 mg PO BID 11/06/17 12/04/17 History Allergies Allergy/AdvReac Type Severity Reaction Status Date / Time cephalexin [From Keflex] Allergy Rash/Hives Verified 12/04/17 13:33 acetaminophen [From [place]] AdvReac Itching Verified 12/04/17 13:34 hydrocodone [From [place]] AdvReac Itching Verified 12/04/17 13:34 Physical Exam Vitals: Intake and Output 12/03/17 12/04/17 12/04/17 22:59 06:59 14:59 Other: Weight 82.1 kg Patient Weight 12/05/17 06:59 Weight 82.1 kg Results Comments: MRI lumbar spine without contrast dated 04/01/2017 demonstrates mild capsulitis and hypertrophic changes and capsulitis within the facets at the L1-L2, L2-L3, L3-L4, L4-L5, and L5-S1 levels. There is a minimal diffuse disc displacement mildly effacing the thecal sac at the L3-L4 level. MRI cervical spine demonstrates uncal vertebral joint hypertrophy and facet arthropathy at C3-C4, C4-C5, C5-C6. There is a broad-based central disc protrusion of the C5-C6 level resulting in significant spinal canal stenosis in the both the anterior margin of the spinal cord. C4-C5 level there is right paracentral lateral disc bulging with moderate right foraminal encroachment. The cervical spinal cord demonstrates multiple areas of abnormal signal including C2-C3, C3-C4 and multiple facet level C5 to the upper margin of T2" especially at the level of C6 to T1. Finding likely represents a large syrinx. Syrinx is also evident on MRI of the thoracic spine done in April 2017. Assessment and Plan (1) Syrinx of spinal cord Current Visit: Yes Status: Chronic Code(s): G95.0 - SYRINGOMYELIA AND SYRINGOBULBIA SNOMED Code(s): 719573286 (2) Lumbosacral spondylosis without myelopathy Current Visit: Yes Status: Chronic Code(s): M47.817 - SPONDYLS W/O MYELOPATHY OR RADICULOPATHY, LUMBOSACR REGION SNOMED Code(s): 21963096 (3) Chronic pain syndrome Current Visit: Yes Status: Chronic Code(s): G89.4 - CHRONIC PAIN SYNDROME SNOMED Code(s): 180909198 (4) Postlaminectomy syndrome Current Visit: Yes Status: Chronic Code(s): M96.1 - POSTLAMINECTOMY SYNDROME , NOT ELSEWHERE CLASSIFIED SNOMED Code(s): 29628625 Plan: 1. Explanation: Opioid and psychological risk scores were reviewed. Diagnoses , prognoses, and multiple treatment options including but not limited to physical therapy, interventional therapies, adjuvant medical therapies, narcotic medication therapies, and surgery were discussed with the patient and all questions were answered to the patient's satisfaction. 2. Opioid agreement: Patient signed narcotic agreement, and was orally counseled to not overuse, abuse, divert, or cell medications, and to take them as prescribed by only 1 healthcare provider. The patient was also counseled to take medications as prescribed by only 1 healthcare provider and to store opioid medications in the safe and preferably locked location. Patient was also counseled against driving or operating heavy equipment while using narcotic medications and also not use alcohol or any illicit or recreational drugs. The patient verbalized understanding that lack of compliance with any of the above and likely result in failure to renew narcotic prescriptions, possible discharge from the clinic, and possible legal ramifications thereafter if indicated. 3. Counseling: The patient was counseled extensively on BODY MASS INDEX, EXERCISE. Specifically, the patient was instructed regarding the importance of weight control, and exercise in the context of both chronic pain and overall health. 4. Procedures: bilateral lumbar MBB L3-S1 5. Consultations: none 6. Investigations: none 7. Medications: none prescribed 8. Disposition: f/u for procedure as scheduled Time with Patient: Greater than 30
== END | disposition home or self-care (01) ==
LOC: PNWHC3 12:55
PROVIDERS: ATTEND Anesthesiology
DX: G89.4 Chronic pain syndrome (principal); M47.817 Spondylosis without myelopathy or radiculopathy, lumbosacral region; M96.1 Postlaminectomy syndrome, not elsewhere classified; G95.0 Syringomyelia and syringobulbia; K21.9 Gastro-esophageal reflux disease without esophagitis; M19.90 Unspecified osteoarthritis, unspecified site; F17.200 Nicotine dependence, unspecified, uncomplicated; Z79.899 Other long term (current) drug therapy; Z88.1 Allergy status to other antibiotic agents; Z88.6 Allergy status to analgesic agent; Z90.89 Acquired absence of other organs; Z98.890 Other specified postprocedural states
CPT/HCPCS: 99211

== ENCOUNTER 2017-12-22 11:22 | Emergency (ER) | payer OTHER ==
[2017-12-22] MEDS ORDERED: SODIUM CHLORIDE 0.9% 1,000 ML IV STA (11:54)
[2017-12-22] MEDS ORDERED: KETOROLAC 30 MG/ML 1 ML VIAL IVP STA (11:55)
--- NOTE | 2017-12-22 11:59 | ED ---
Chest Pain HPI - General Chief Complaint: Chest Pain Stated Complaint: Chest pain Time Seen by Provider: 12/22/17 11:32 Source: patient, RN notes reviewed Mode of arrival: wheelchair Limitations: no limitations - History of Present Illness Initial Comments: This is a 42-year-old female with a history of a cervical fusion in October this past year who states he had the onset 2 days ago of sharp left-sided chest pain goes to her armpit. She states that 6-7/10 severity she also has with that orthopnea. He has had congestion she is constantly clearing her throat. She does state that 2 weeks ago she had the flu with nausea and since then has have any very much. She is a former smoker who quit prior to her neck surgery. She does have a history of frequent pneumonias. She has had a tubal ligation is not on control pills. No recent long trips complains of no calf pain or tenderness. No rhinorrhea no sore throat no ear pain MD Complaint: chest pain, other - Related Data Home Medications Medication Instructions Recorded Confirmed Sertraline [Zoloft] 50 mg PO BID 11/06/17 12/22/17 Albuterol Inhaler [Ventolin Hfa 1 - 2 puff INHALATION RT-Q6H PRN 12/22/17 Inhaler] Pantoprazole Sodium [Protonix] 40 mg PO DAILY 12/22/17 12/22/17 Vitamin B Complex 1 cap PO DAILY 12/22/17 12/22/17 Previous Rx's Medication Instructions Recorded Ibuprofen 800 mg PO Q6HR PRN #20 tablet 12/22/17 oxyCODONE HCL/ACETAMINOPHEN 1 tab PO Q6HR PRN #12 tab 12/22/17 [Percocet 7.5-325 mg] Allergies Allergy/AdvReac Type Severity Reaction Status Date / Time cephalexin [From Keflex] Allergy Rash/Hives Verified 12/22/17 12:22 hydrocodone [From [place]] AdvReac Itching Verified 12/22/17 12:22 Review of Systems ROS Statement: Those systems with pertinent positive or pertinent negative responses have been documented in the HPI. ROS Other: All systems not noted in ROS Statement are negative. EKG Findings - EKG Results: EKG: interpreted by REE, sinus rhythm (Sinus rhythm rate is 79. Interval 118 QRS duration 88 QT since QTC of 364/[address]-T wave changes.) Past Medical History Past Medical History: GERD/Reflux, Osteoarthritis (OA), Rheumatoid Arthritis (RA ) Additional Past Medical History / Comment(s): CHRONIC BACK PAIN, Sjogrens History of Any Multi-Drug Resistant Organisms: None Reported Past Surgical History: Breast Surgery, Section, Tonsillectomy Additional Past Surgical History / Comment(s): LT BREAST BX. cervical spine fusion surgery Past Anesthesia/Blood Transfusion Reactions: No Reported Reaction Past Psychological History: Anxiety, Panic Disorder Smoking Status: Current some day smoker Past Alcohol Use History: None Reported Past Drug Use History: None Reported - Past Family History Father Family Medical History: CVA/TIA Additional Family Medical History / Comment(s): DAD= EMPHYZEMA. (MOM= HTN) Mother Family Medical History: Hypertension General Exam - General Exam Comments Initial Comments: This is a well-developed well-nourished awake alert oriented 3 female Limitations: no limitations General appearance: alert, anxious Head exam: Present: atraumatic, normocephalic, normal inspection Eye exam: Present: normal appearance, PERRL, EOMI. Absent: scleral icterus, conjunctival injection, periorbital swelling ENT exam: Present: normal exam, mucous membranes moist Neck exam: Present: normal inspection. Absent: tenderness, meningismus, lymphadenopathy Respiratory exam: Present: normal lung sounds bilaterally, chest wall tenderness (Tenderness palpation over the left costal sternal margin as well as the left axilla especially along the pectoralis muscle. No rash no step-off or crepitation). Absent: respiratory distress, wheezes, rales, rhonchi, stridor Cardiovascular Exam: Present: regular rate, normal rhythm, normal heart sounds. Absent: systolic murmur, diastolic murmur, rubs, gallop, clicks GI/Abdominal exam: Present: soft, normal bowel sounds. Absent: distended, tenderness, guarding, rebound, rigid Extremities exam: Present: normal inspection, full ROM, normal capillary refill. Absent: tenderness, pedal edema, joint swelling, calf tenderness Back exam: Present: normal inspection Neurological exam: Present: alert, oriented X3, CN II-XII intact Psychiatric exam: Present: normal affect, normal mood Skin exam: Present: warm, dry, intact, normal color. Absent: rash Course Vital Signs 12/22/17 12/22/17 12/22/17 11:24 12:42 13:51 Temperature 98.4 F 99.0 F Pulse Rate 97 81 85 Respiratory 18 20 20 Rate Blood Pressure 138/84 130/61 120/61 O2 Sat by Pulse 100 100 100 Oximetry - Reevaluation(s) Reevaluation #1: 12/22/17 14:32 Patient voiced no improvement after the IV Toradol. Chest Pain MDM - MDM I did discuss findings with patient and her mother was present. Patient's presentation is consistent with musculoskeletal/costochondritic pain. Patient will be discharged on appropriate medication she has taken Dilaudid and morphine before without any problem. She was on Percocet previously for pain Disposition Clinical Impression: Chest wall syndrome, Costalchondritis Disposition: HOME SELF-CARE Condition: Good Instructions: Costochondritis (ED) Prescriptions: Ibuprofen 800 mg PO Q6HR PRN #20 tablet PRN Reason: Pain oxyCODONE HCL/ACETAMINOPHEN [Percocet 7.5-325 mg] 1 tab PO Q6HR PRN #12 tab PRN Reason: Pain Referrals: Fany Coburn MD [Primary Care Provider] - 1-2 days
[2017-12-22 12:14] LABS: Basophils % (A) 0 %; Eosinophils # (A) 0.3 k/uL (0-0.7); Eosinophils % (A) 3 %; HCT 43.7 % (34.0-46.0); HGB 14.2 gm/dL (11.4-16.0); Lymphocytes # (A) 2.2 k/uL (1.0-4.8); Lymphocytes % (A) 25 %; MCH 30.5 pg (25.0-35.0); MCHC 32.4 g/dL (31.0-37.0); MCV 94.1 fL (80.0-100.0); Mean Platelet Volume 7.6; Monocytes # (A) 0.6 k/uL (0-1.0); Monocytes % (A) 7 %; Neutrophils # (A) 5.6 k/uL (1.3-7.7); Neutrophils % (A) 64 %; Platelet Count 235 k/uL (150-450); RBC 4.64 m/uL (3.80-5.40); RDW 13.1 % (11.5-15.5); WBC 8.8 k/uL (3.8-10.6)
[2017-12-22 12:26] LABS: D-Dimer 0.24 mg/L FEU (<0.60)
[2017-12-22 12:30] LABS: INR 1.1 (<1.2); Prothrombin Time 10.5 sec (9.0-12.0)
[2017-12-22 12:34] LABS: ALT 31 U/L (9-52); AST 28 U/L (14-36); Alkaline Phosphatase 87 U/L (38-126); Amylase 48 U/L (30-110); Anion Gap 11 mmol/L; Blood Urea Nitrogen 7 mg/dL (7-17); Carbon Dioxide 24 mmol/L (22-30); Chloride 104 mmol/L (98-107); Creatine Kinase 63 U/L (30-135); Glucose 90 mg/dL (74-99); Lipase 164 U/L (23-300); Magnesium 1.7 mg/dL (1.6-2.3); Potassium 4.6 mmol/L (3.5-5.1); Sodium 139 mmol/L (137-145); Total Bilirubin 0.5 mg/dL (0.2-1.3); Total Protein 7.1 g/dL (6.3-8.2)
[2017-12-22 12:46] LABS: Creatine Kinase MB 0.5 ng/mL (0.0-2.4); Troponin I <0.012 ng/mL (0.000-0.034)
--- NOTE | 2017-12-22 12:49 | XR ---
EXAMINATION TYPE: XR chest 2V DATE OF EXAM: 12/22/2017 HISTORY: Chest Pain. REFERENCE: Previous study dated 10/28/2017. FINDINGS: There is increased density adjacent to the right heart border. This is very similar to the previous examination. LV difficult to exclude an early right basilar infiltrate. The left lung is wilmer ar. The heart is not enlarged. Pleural spaces are clear. IMPRESSION: I CANNOT EXCLUDE AN EARLY RIGHT BASILAR INFILTRATE.
[2017-12-22] MEDS ORDERED: HYDROmorphone 2 MG/ML 1 ML SYRINGE IVP STA (14:30)
[2017-12-22] MEDS ORDERED: ONDANSETRON 4 MG/2 ML VIAL IVP STA (14:31)
[2017-12-22 14:50] VITALS: BP 119/62; PULSE 86; RESP 18; TEMP 97.8
== END 2017-12-22 14:50 | disposition home or self-care (01) ==
LOC: EC 11:22
DX: M94.0 Chondrocostal junction syndrome [Tietze] (principal); K21.9 Gastro-esophageal reflux disease without esophagitis; F41.0 Panic disorder [episodic paroxysmal anxiety]; F17.200 Nicotine dependence, unspecified, uncomplicated; Z79.899 Other long term (current) drug therapy; Z88.1 Allergy status to other antibiotic agents; Z88.5 Allergy status to narcotic agent; Z82.49 Family history of ischemic heart disease and other diseases of the circulatory system
CPT/HCPCS: 36415; 93005; 85379; 83880; 80053; 82150; 82550; 82553; 83690; 83735; 84484; 85025; 85610; 85730; 71046; 99285; 96374; 96375 ×2; 96361 ×3; J1170; J2405; J1885

== ENCOUNTER 2018-04-12 15:02 | Emergency (ER) | payer SELFPAY ==
[2018-04-12 15:07] VITALS: BP 135/68; PULSE 102; RESP 20; TEMP 98.4
[2018-04-12] MEDS ORDERED: KETOROLAC 60 MG/2 ML VIAL IM STA (15:18)
--- NOTE | 2018-04-12 15:21 | ED ---
Lower Extremity Injury HPI - General Chief Complaint: Extremity Injury, Lower Stated Complaint: left ankle injury Time Seen by Provider: 04/12/18 15:14 Source: patient, RN notes reviewed Mode of arrival: wheelchair Limitations: no limitations - History of Present Illness Initial Comments: 42-year-old female presents emergency from chief complaint of left ankle, foot injury. Patient states that she stepped off a curb rolled her ankle and she has severe pain and swelling to her left ankle and foot region. Patient states that she's had no prior injuries. Patient states that she cannot weight-bear and is in severe pain. Patient uncles plain that she fell onto her right knee has right knee pain. Patient denies any paresthesias no head injury no loss conscious. - Related Data Home Medications Medication Instructions Recorded Confirmed Sertraline [Zoloft] 50 mg PO BID 11/06/17 12/22/17 Albuterol Inhaler [Ventolin Hfa 1 - 2 puff INHALATION RT-Q6H PRN 12/22/17 Inhaler] Pantoprazole Sodium [Protonix] 40 mg PO DAILY 12/22/17 12/22/17 Vitamin B Complex 1 cap PO DAILY 12/22/17 12/22/17 Previous Rx's Medication Instructions Recorded Ibuprofen 800 mg PO Q6HR PRN #20 tablet 12/22/17 oxyCODONE HCL/ACETAMINOPHEN 1 tab PO Q6HR PRN #12 tab 12/22/17 [Percocet 7.5-325 mg] Ibuprofen [Motrin] 600 mg PO Q8HR PRN #30 tab 04/12/18 Allergies Allergy/AdvReac Type Severity Reaction Status Date / Time cephalexin [From Keflex] Allergy Rash/Hives Verified 04/12/18 15:07 hydrocodone [From [place]] AdvReac Itching Verified 04/12/18 15:07 Review of Systems ROS Statement: Those systems with pertinent positive or pertinent negative responses have been documented in the HPI. ROS Other: All systems not noted in ROS Statement are negative. Past Medical History Past Medical History: GERD/Reflux, Osteoarthritis (OA), Rheumatoid Arthritis (RA ) Additional Past Medical History / Comment(s): CHRONIC BACK PAIN, Sjogrens History of Any Multi-Drug Resistant Organisms: None Reported Past Surgical History: Breast Surgery, Section, Tonsillectomy Additional Past Surgical History / Comment(s): LT BREAST BX. cervical spine fusion surgery Past Anesthesia/Blood Transfusion Reactions: No Reported Reaction Past Psychological History: Anxiety, Panic Disorder Smoking Status: Current some day smoker Past Alcohol Use History: None Reported Past Drug Use History: None Reported - Past Family History Father Family Medical History: CVA/TIA Additional Family Medical History / Comment(s): DAD= EMPHYZEMA. (MOM= HTN) Mother Family Medical History: Hypertension General Exam Limitations: no limitations General appearance: alert, in no apparent distress Head exam: Present: atraumatic, normocephalic, normal inspection Respiratory exam: Present: normal lung sounds bilaterally. Absent: respiratory distress, wheezes, rales, rhonchi, stridor Cardiovascular Exam: Present: regular rate, normal rhythm, normal heart sounds. Absent: systolic murmur, diastolic murmur, rubs, gallop, clicks Extremities exam: Present: other (Left ankle there is moderate swelling to the lateral malleolus with moderate tenderness to the lateral malleolus and proximal foot region neurovascular intact no obvious deformities right knee full range of motion small area of ecchymosis noted minimally tender) Skin exam: Present: warm, dry, intact, normal color. Absent: rash Course Vital Signs 04/12/18 15:04 Temperature 98.4 F Pulse Rate 102 H Respiratory 20 Rate Blood Pressure 135/68 O2 Sat by Pulse 100 Oximetry Procedures - Orthopedic Splinting/Casting Injury #1 Side: left Lower Extremity Injury Location: ankle Lower Extremity Immobilizer: posterior splint, synthetic pre-padded splint Other Orthopedic Equipment: crutches Medical Decision Making - Medical Decision Making 42-year-old female presents from chief complaint of left ankle injury. Patient has avulsion fracture noted. Patient's will be splinted follow-up with orthopedics. Return parameters were discussed. Disposition Clinical Impression: Ankle fracture Disposition: HOME SELF-CARE Condition: Stable Instructions: Ankle Fracture (ED) Additional Instructions: Please return to the Emergency Department if symptoms worsen or any other concerns. Prescriptions: Ibuprofen [Motrin] 600 mg PO Q8HR PRN #30 tab PRN Reason: Pain Is patient prescribed a controlled substance at d/c from ED?: No Referrals: Fany Coburn MD [Primary Care Provider] - 1-2 days Cristina García DO [Doctor of Osteopathic Medicine] - 1-2 days Time of Disposition: 15:47
--- NOTE | 2018-04-12 15:42 | XR ---
EXAMINATION TYPE: XR ankle complete LT DATE OF EXAM: 04/12/2018 COMPARISON: NONE HISTORY: Pain TECHNIQUE: 3 views of the left ankle are submitted for evaluation. FINDINGS: Small avulsion fracture medial malleolar tip. Soft tissue swelling noted about the ankle. A nkle mortise is intact. IMPRESSION: 1. Small avulsion fracture medial malleolar tip.
--- NOTE | 2018-04-12 15:44 | XR ---
EXAMINATION TYPE: XR foot complete LT DATE OF EXAM: 04/12/2018 CLINICAL HISTORY: pain TECHNIQUE: Frontal, lateral and oblique images of the left foot are obtained. COMPARISON: None. FINDINGS: There is no acute fracture/dislocation evident. The joint spaces appear within normal morton its. The overlying soft tissue appears unremarkable. IMPRESSION: There is no acute fracture or dislocation. ICD 10 NO FRACTURE, INITIAL EVALUATION
--- NOTE | 2018-04-12 15:44 | XR ---
EXAMINATION TYPE: XR knee complete RT DATE OF EXAM: 04/12/2018 CLINICAL HISTORY: pain TECHNIQUE: Three views of the right knee are obtained. COMPARISON: None. FINDINGS: There is no acute fracture/dislocation. The tri-compartment joint spaces appear within no rmal limits. The overlying soft tissue appears unremarkable. IMPRESSION: There is no acute fracture or dislocation.ICD 10 NO FRACTURE, INITIAL EVALUATION
== END 2018-04-12 16:15 | disposition home or self-care (01) ==
LOC: EC 15:02
DX: S80.01XA Contusion of right knee, initial encounter (principal); S82.52XA Displaced fracture of medial malleolus of left tibia, initial encounter for closed fracture; K21.9 Gastro-esophageal reflux disease without esophagitis; M06.9 Rheumatoid arthritis, unspecified; M19.90 Unspecified osteoarthritis, unspecified site; F41.9 Anxiety disorder, unspecified; F17.200 Nicotine dependence, unspecified, uncomplicated; Z79.899 Other long term (current) drug therapy; Z88.1 Allergy status to other antibiotic agents; Z88.5 Allergy status to narcotic agent; X50.1XXA Overexertion from prolonged static or awkward postures, initial encounter
CPT/HCPCS: 73562; 73610; 73630; 99283; 29515; 96372; J1885

== ENCOUNTER 2018-07-17 09:19 | Emergency (ER) | payer BC ==
[2018-07-17 09:43] VITALS: TEMP 98.6
--- NOTE | 2018-07-17 13:35 | ED ---
Psych HPI - General Chief Complaint: Psychiatric Symptoms Stated Complaint: MENTAL HEALTH Time Seen by Provider: 07/17/18 12:34 Source: patient, RN notes reviewed Mode of arrival: ambulatory Limitations: no limitations - History of Present Illness Initial Comments: This a 42-year-old female presents emergency department for psychiatric evaluation. Patient states she's been having issues with anxiety states that she had no straight down last week at work. Patient was not not return to work until seen by psychiatric services. Patient with PCP and referred to the ER for this. Patient states she's not suicidal or homicidal. She does take Wellbutrin for her anxiety. Patient denies any homicidal ideation, drug use or alcohol abuse. Patient has no physical complaints. - Related Data Home Medications Medication Instructions Recorded Confirmed Pantoprazole Sodium [Protonix] 40 mg PO DAILY 12/22/17 07/17/18 Ibuprofen 800 mg PO TID 07/17/18 07/17/18 Sertraline [Zoloft] 50 mg PO BID 07/17/18 07/17/18 buPROPion HCL [Wellbutrin SR] 150 mg PO DAILY 07/17/18 07/17/18 Previous Rx's Medication Instructions Recorded ALPRAZolam [Xanax] 0.5 mg PO DAILY PRN #7 tablet 07/17/18 Allergies Allergy/AdvReac Type Severity Reaction Status Date / Time cephalexin [From Keflex] Allergy Rash/Hives Verified 07/17/18 12:58 hydrocodone [From [place]] AdvReac Itching Verified 07/17/18 12:58 Review of Systems ROS Statement: Those systems with pertinent positive or pertinent negative responses have been documented in the HPI. ROS Other: All systems not noted in ROS Statement are negative. Past Medical History Past Medical History: GERD/Reflux, Osteoarthritis (OA), Rheumatoid Arthritis (RA ) Additional Past Medical History / Comment(s): CHRONIC BACK PAIN, Sjogrens History of Any Multi-Drug Resistant Organisms: None Reported Past Surgical History: Breast Surgery, Section, Tonsillectomy Additional Past Surgical History / Comment(s): LT BREAST BX. cervical spine fusion surgery Past Anesthesia/Blood Transfusion Reactions: No Reported Reaction Past Psychological History: Anxiety, Panic Disorder Smoking Status: Current every day smoker Past Alcohol Use History: None Reported Past Drug Use History: None Reported - Past Family History Father Family Medical History: CVA/TIA Additional Family Medical History / Comment(s): DAD= EMPHYZEMA. (MOM= HTN) Mother Family Medical History: Hypertension General Exam Limitations: no limitations General appearance: alert, in no apparent distress Head exam: Present: atraumatic, normocephalic, normal inspection Eye exam: Present: normal appearance, PERRL, EOMI. Absent: scleral icterus, conjunctival injection, periorbital swelling ENT exam: Present: normal exam, normal oropharynx, mucous membranes moist, TM's normal bilaterally Neck exam: Present: normal inspection, full ROM. Absent: tenderness, meningismus, lymphadenopathy Respiratory exam: Present: normal lung sounds bilaterally. Absent: respiratory distress, wheezes, rales, rhonchi, stridor Cardiovascular Exam: Present: regular rate, normal rhythm, normal heart sounds. Absent: systolic murmur, diastolic murmur, rubs, gallop, clicks GI/Abdominal exam: Present: soft, normal bowel sounds. Absent: distended, tenderness, guarding, rebound, rigid Back exam: Absent: CVA tenderness (R), CVA tenderness (L) Neurological exam: Present: alert, oriented X3, CN II-XII intact Psychiatric exam: Present: normal affect, normal mood Skin exam: Present: warm, dry, intact, normal color. Absent: rash Course Vital Signs 07/17/18 09:39 Temperature 98.6 F Pulse Rate 77 Respiratory 18 Rate Blood Pressure 131/76 O2 Sat by Pulse 100 Oximetry Medical Decision Making - Medical Decision Making 42-year-old female presented for psychiatric evaluation. Patient was evaluated by EPS case discussed with on-call psychiatrist does not recommend inpatient treatment for patient's anxiety. Patient was given 7 tablets of Xanax she will follow-up with PCP and return for any worsening symptoms. - Lab Data Lab Results 07/17/18 Range/Units 14:36 Urine Opiates Screen Not Detected (NotDetected) Ur Oxycodone Screen Not Detected (NotDetected) Urine Methadone Screen Not Detected (NotDetected) Ur Propoxyphene Screen Not Detected (NotDetected) Ur Barbiturates Screen Not Detected (NotDetected) U Tricyclic Antidepress Not Detected (NotDetected) Ur Phencyclidine Scrn Not Detected (NotDetected) Ur Amphetamines Screen Not Detected (NotDetected) U Methamphetamines Scrn Not Detected (NotDetected) U Benzodiazepines Scrn Not Detected (NotDetected) Urine Cocaine Screen Not Detected (NotDetected) U Marijuana (THC) Screen Detected H (NotDetected) Disposition Clinical Impression: Anxiety Disposition: HOME SELF-CARE Condition: Stable Instructions: Generalized Anxiety Disorder (ED) Additional Instructions: Please return to the Emergency Department if symptoms worsen or any other concerns. Prescriptions: ALPRAZolam [Xanax] 0.5 mg PO DAILY PRN #7 tablet PRN Reason: Anxiety Is patient prescribed a controlled substance at d/c from ED?: Yes When asked, does pt state using other controlled substances?: No If prescribed controlled substance>3 days was MAPS reviewed?: Prescribed <3 Days Referrals: Fany Coburn MD [Primary Care Provider] - 1-2 days Time of Disposition: 15:47
[2018-07-17 15:06] LABS: Amphetamine Screen,Urine Not Detected (NotDetected); Barbiturate Screen,Urine Not Detected (NotDetected); Benzodiazepines Screen,Urine Not Detected (NotDetected); Cocaine Screen,Urine Not Detected (NotDetected); Methadone Screen, Urine Not Detected (NotDetected); Opiate Screen,Urine Not Detected (NotDetected); Oxycodone Screen, Urine Not Detected (NotDetected); Phencyclidine Screen,Urine Not Detected (NotDetected); Tricyclic Antidepressant,Urine Not Detected (NotDetected); Urn Cannabinoid Scrn Detected (NotDetected)
[2018-07-17] MEDS ORDERED: ALPRAZolam 0.5 MG TAB PO STA (15:19)
[2018-07-17 17:02] VITALS: BP 132/63; PULSE 72; RESP 17
== END 2018-07-17 17:02 | disposition home or self-care (01) ==
LOC: EC 09:19
DX: F41.0 Panic disorder [episodic paroxysmal anxiety] (principal); K21.9 Gastro-esophageal reflux disease without esophagitis; M19.90 Unspecified osteoarthritis, unspecified site; M06.9 Rheumatoid arthritis, unspecified; F17.200 Nicotine dependence, unspecified, uncomplicated; Z88.1 Allergy status to other antibiotic agents; Z88.5 Allergy status to narcotic agent; Z79.1 Long term (current) use of non-steroidal anti-inflammatories (NSAID); Z79.899 Other long term (current) drug therapy
CPT/HCPCS: 80306; 82075; 99283

== ENCOUNTER 2018-07-24 22:45 | Emergency (ER) | payer BC ==
[2018-07-24] MEDS ORDERED: LORazepam 2 MG/ML INJ IV STA (23:10)
[2018-07-24] MEDS ORDERED: SODIUM CHLORIDE 0.9% 1,000 ML IV ONE (23:10)
[2018-07-24 23:51] LABS: Basophils # (A) 0.1 k/uL (0-0.2); Basophils % (A) 1 %; Eosinophils # (A) 0.1 k/uL (0-0.7); Eosinophils % (A) 2 %; HCT 42.1 % (34.0-46.0); HGB 14.2 gm/dL (11.4-16.0); Lymphocytes # (A) 1.6 k/uL (1.0-4.8); Lymphocytes % (A) 20 %; MCH 32.1 pg (25.0-35.0); MCHC 33.6 g/dL (31.0-37.0); MCV 95.3 fL (80.0-100.0); Mean Platelet Volume 7.3; Monocytes # (A) 0.4 k/uL (0-1.0); Monocytes % (A) 5 %; Neutrophils # (A) 5.5 k/uL (1.3-7.7); Neutrophils % (A) 70 %; Platelet Count 254 k/uL (150-450); RBC 4.42 m/uL (3.80-5.40); RDW 13.3 % (11.5-15.5); WBC 7.9 k/uL (3.8-10.6)
[2018-07-24 23:56] LABS: ALT 27 U/L (9-52); AST 18 U/L (14-36); Albumin 4.6 g/dL (3.5-5.0); Alkaline Phosphatase 72 U/L (38-126); Anion Gap 11 mmol/L; Blood Urea Nitrogen 7 mg/dL (7-17); Calcium 9.7 mg/dL (8.4-10.2); Carbon Dioxide 18 mmol/L (22-30); Chloride 110 mmol/L (98-107); Glucose 92 mg/dL (74-99); Potassium 4.2 mmol/L (3.5-5.1); Sodium 139 mmol/L (137-145); Total Bilirubin 0.2 mg/dL (0.2-1.3); Total Protein 8.1 g/dL (6.3-8.2)
--- NOTE | 2018-07-24 23:58 | XR ---
EXAMINATION TYPE: XR chest 2V DATE OF EXAM: 07/24/2018 COMPARISON: 12/22/2017 HISTORY: Anxiety. Chest pain TECHNIQUE: Frontal and lateral views of the chest are obtained. FINDINGS: Heart and mediastinum are normal. Lungs are clear. Diaphragm is normal. Bony thorax is int act. There are chest leads. IMPRESSION: Normal chest. No change.
[2018-07-25 00:02] VITALS: RESP 18
--- NOTE | 2018-07-25 00:03 | ED ---
Anxiety HPI - General Chief Complaint: Anxiety Stated Complaint: PANIC ATTACK Time Seen by Provider: 07/24/18 22:54 Source: patient, family Mode of arrival: ambulatory - History of Present Illness Initial Comments: 42-year-old female patient presents to the emergency department today for evaluation of increased anxiety and panic attacks. Patient states that for the last several days she has been having issues with increasing panic attacks. Patient states she has been unable to work due to these. Patient states she was seen and evaluated here a couple of days ago was given Xanax which did seem to help however she is out at this time. Patient states that she was unaware work tonight when it hit her out of nowhere. Patient states she is having some chest pain, shortness of breath, and chest tightness with this. Patient states she is also having upper back pain recently. Patient states she has been sweating and feels very warm. Patient does have a history of anxiety has been taking Wellbutrin which initially seemed to help her but doesn't seem to be helping any longer. She denies any nausea or vomiting. Denies any fevers or chills with this. Denies any cough or congestion. Patient denies any recent rash, fever, chills, abdominal pain, diarrhea, constipation, numbness, tingling , dizziness, weakness, hematuria, dysuria, urinary urgency, urinary frequency, headache, visual changes, or any other complaints. Patient does have an appointment with a psychiatrist on August 01. - Related Data Home Medications: Home Medications Medication Instructions Recorded Confirmed Pantoprazole Sodium [Protonix] 40 mg PO DAILY 12/22/17 07/24/18 Sertraline [Zoloft] 50 mg PO BID 07/17/18 07/24/18 buPROPion HCL [Wellbutrin SR] 150 mg PO DAILY 07/17/18 07/24/18 Allergies/Adverse Reactions: Allergies Allergy/AdvReac Type Severity Reaction Status Date / Time cephalexin [From Keflex] Allergy Rash/Hives Verified 07/24/18 23:03 hydrocodone [From [place]] AdvReac Itching Verified 07/24/18 23:03 Review of Systems ROS Statement: Those systems with pertinent positive or pertinent negative responses have been documented in the HPI. ROS Other: All systems not noted in ROS Statement are negative. Past Medical History Past Medical History: GERD/Reflux, Osteoarthritis (OA), Rheumatoid Arthritis (RA ) Additional Past Medical History / Comment(s): CHRONIC BACK PAIN, Sjogrens History of Any Multi-Drug Resistant Organisms: None Reported Past Surgical History: Breast Surgery, Section, Tonsillectomy Additional Past Surgical History / Comment(s): LT BREAST BX. cervical spine fusion surgery Past Anesthesia/Blood Transfusion Reactions: No Reported Reaction Past Psychological History: Anxiety, Panic Disorder Smoking Status: Current every day smoker Past Alcohol Use History: None Reported Past Drug Use History: None Reported - Past Family History Father Family Medical History: CVA/TIA Additional Family Medical History / Comment(s): DAD= EMPHYZEMA. (MOM= HTN) Mother Family Medical History: Hypertension General Exam Limitations: no limitations General appearance: alert, in no apparent distress, other (This is a well- developed, well-nourished adult female patient in mild distress. Vital signs upon presentation are temperature 98.4F, pulse 98, respirations 20, blood pressure 138/83, pulse ox 100% on room air.) Eye exam: Present: normal appearance, PERRL, EOMI. Absent: scleral icterus, conjunctival injection, periorbital swelling ENT exam: Present: normal exam, normal oropharynx, mucous membranes moist Respiratory exam: Present: normal lung sounds bilaterally. Absent: respiratory distress, wheezes, rales, rhonchi, stridor Cardiovascular Exam: Present: regular rate, normal rhythm, normal heart sounds. Absent: systolic murmur, diastolic murmur, rubs, gallop, clicks GI/Abdominal exam: Present: soft, normal bowel sounds. Absent: distended, tenderness, guarding, rebound, rigid Neurological exam: Present: alert, oriented X3, CN II-XII intact Psychiatric exam: Present: agitated, anxious, other (Tearful) Skin exam: Present: warm, dry, intact, normal color. Absent: rash Course Vital Signs 07/24/18 07/25/18 07/25/18 22:48 00:01 01:01 Temperature 98.4 F 97.5 F L Pulse Rate 98 73 75 Respiratory 20 18 18 Rate Blood Pressure 138/83 136/80 123/67 O2 Sat by Pulse 100 100 99 Oximetry Medical Decision Making - Medical Decision Making 42-year-old female patient presented to the emergency department today for complaints of anxiety which included some chest tightness and shortness of breath as well as a feeling of panic. Physical examination is unremarkable. Did perform labs and EKG to rule out any other cause for her symptoms. Patient did receive a milligram of Ativan IV push here in the department. Upon reevaluation she is feeling much better. I did offer to have her evaluated by emergency psychiatric services, she states she does have an appointment with a counselor in 1 week. States that she will keep this appointment and would rather follow-up outpatient. She is instructed to follow-up with her primary care physician to discuss prescription for anxiety. Return parameters were discussed in detail. She verbalizes understanding and agrees with this plan. - Lab Data Result diagrams: 07/24/18 23:31 07/24/18 23:31 Lab Results 07/24/18 07/24/18 07/24/18 Range/Units 23:31 23:31 23:31 WBC 7.9 (3.8-10.6) k/uL RBC 4.42 (3.80-5.40) m/uL Hgb 14.2 (11.4-16.0) gm/dL Hct 42.1 (34.0-46.0) % MCV 95.3 (80.0-100.0) fL MCH 32.1 (25.0-35.0) pg MCHC 33.6 (31.0-37.0) g/dL RDW 13.3 (11.5-15.5) % Plt Count 254 (150-450) k/uL Neutrophils % 70 % Lymphocytes % 20 % Monocytes % 5 % Eosinophils % 2 % Basophils % 1 % Neutrophils # 5.5 (1.3-7.7) k/uL Lymphocytes # 1.6 (1.0-4.8) k/uL Monocytes # 0.4 (0-1.0) k/uL Eosinophils # 0.1 (0-0.7) k/uL Basophils # 0.1 (0-0.2) k/uL PT (9.0-12.0) sec INR (<1.2) APTT (22.0-30.0) sec D-Dimer (<0.60) mg/L FEU Sodium 139 (137-145) mmol/L Potassium 4.2 (3.5-5.1) mmol/L Chloride 110 H (98-107) mmol/L Carbon Dioxide 18 L (22-30) mmol/L Anion Gap 11 mmol/L BUN 7 (7-17) mg/dL Creatinine 0.64 (0.52-1.04) mg/dL Est GFR (CKD-EPI)AfAm >90 (>60 ml/min/1.73 sqM) Est GFR (CKD-EPI)NonAf >90 (>60 ml/min/1.73 sqM) Glucose 92 (74-99) mg/dL Calcium 9.7 (8.4-10.2) mg/dL Total Bilirubin 0.2 (0.2-1.3) mg/dL AST 18 (14-36) U/L ALT 27 (9-52) U/L Alkaline Phosphatase 72 (38-126) U/L Total Creatine Kinase 53 (30-135) U/L CK-MB (CK-2) 1.0 (0.0-2.4) ng/mL CK-MB (CK-2) Rel Index 1.9 Troponin I <0.012 (0.000-0.034) ng/mL Total Protein 8.1 (6.3-8.2) g/dL Albumin 4.6 (3.5-5.0) g/dL Urine Color Urine Appearance (Clear) Urine pH (5.0-8.0) Ur Specific [place] (1.001-1.035) Urine Protein (Negative) Urine Glucose (UA) (Negative) Urine Ketones (Negative) Urine Blood (Negative) Urine Nitrite (Negative) Urine Bilirubin (Negative) Urine Urobilinogen (<2.0) mg/dL Ur Leukocyte Esterase (Negative) Urine HCG, Qual (Not Detectd) Urine Opiates Screen (NotDetected) Ur Oxycodone Screen (NotDetected) Urine Methadone Screen (NotDetected) Ur Propoxyphene Screen (NotDetected) Ur Barbiturates Screen (NotDetected) U Tricyclic Antidepress (NotDetected) Ur Phencyclidine Scrn (NotDetected) Ur Amphetamines Screen (NotDetected) U Methamphetamines Scrn (NotDetected) U Benzodiazepines Scrn (NotDetected) Urine Cocaine Screen (NotDetected) U Marijuana (THC) Screen (NotDetected) 07/24/18 07/24/18 07/24/18 Range/Units 23:31 23:55 23:55 WBC (3.8-10.6) k/uL RBC (3.80-5.40) m/uL Hgb (11.4-16.0) gm/dL Hct (34.0-46.0) % MCV (80.0-100.0) fL MCH (25.0-35.0) pg MCHC (31.0-37.0) g/dL RDW (11.5-15.5) % Plt Count (150-450) k/uL Neutrophils % % Lymphocytes % % Monocytes % % Eosinophils % % Basophils % % Neutrophils # (1.3-7.7) k/uL Lymphocytes # (1.0-4.8) k/uL Monocytes # (0-1.0) k/uL Eosinophils # (0-0.7) k/uL Basophils # (0-0.2) k/uL PT 10.0 (9.0-12.0) sec INR 1.0 (<1.2) APTT 23.6 (22.0-30.0) sec D-Dimer 0.36 (<0.60) mg/L FEU Sodium (137-145) mmol/L Potassium (3.5-5.1) mmol/L Chloride (98-107) mmol/L Carbon Dioxide (22-30) mmol/L Anion Gap mmol/L BUN (7-17) mg/dL Creatinine (0.52-1.04) mg/dL Est GFR (CKD-EPI)AfAm (>60 ml/min/1.73 sqM) Est GFR (CKD-EPI)NonAf (>60 ml/min/1.73 sqM) Glucose (74-99) mg/dL Calcium (8.4-10.2) mg/dL Total Bilirubin (0.2-1.3) mg/dL AST (14-36) U/L ALT (9-52) U/L Alkaline Phosphatase (38-126) U/L Total Creatine Kinase (30-135) U/L CK-MB (CK-2) (0.0-2.4) ng/mL CK-MB (CK-2) Rel Index Troponin I (0.000-0.034) ng/mL Total Protein (6.3-8.2) g/dL Albumin (3.5-5.0) g/dL Urine Color Light Yellow Urine Appearance Clear (Clear) Urine pH 5.5 (5.0-8.0) Ur Specific [place] 1.004 (1.001-1.035) Urine Protein Negative (Negative) Urine Glucose (UA) Negative (Negative) Urine Ketones Negative (Negative) Urine Blood Negative (Negative) Urine Nitrite Negative (Negative) Urine Bilirubin Negative (Negative) Urine Urobilinogen <2.0 (<2.0) mg/dL Ur Leukocyte Esterase Negative (Negative) Urine HCG, Qual Not Detected (Not Detectd) Urine Opiates Screen Not Detected (NotDetected) Ur Oxycodone Screen Not Detected (NotDetected) Urine Methadone Screen Not Detected (NotDetected) Ur Propoxyphene Screen Not Detected (NotDetected) Ur Barbiturates Screen Not Detected (NotDetected) U Tricyclic Antidepress Not Detected (NotDetected) Ur Phencyclidine Scrn Not Detected (NotDetected) Ur Amphetamines Screen Not Detected (NotDetected) U Methamphetamines Scrn Not Detected (NotDetected) U Benzodiazepines Scrn Not Detected (NotDetected) Urine Cocaine Screen Not Detected (NotDetected) U Marijuana (THC) Screen Not Detected (NotDetected) - EKG Data -: EKG Interpreted by Me EKG Comments: EKG obtained at 2257 shows normal sinus rhythm with a ventricular rate of 87, DC interval 126, QR catholic 86, QT 338, QTC 406. No evidence of ST elevation or depression. - Radiology Data Radiology results: report reviewed, image reviewed Two-view x-ray of the chest is obtained. Heart and mediastinum are normal. Lungs are clear. Diaphragm is normal. Bony thorax is intact. There are chest leads. Impression by Dr. Maxwell shows normal chest with no change. Disposition Clinical Impression: Panic attack, Generalized anxiety disorder Disposition: HOME SELF-CARE Condition: Good Instructions: Generalized Anxiety Disorder (ED), Panic Attack (ED) Additional Instructions: Follow-up with your primary care physician to discuss prescriptions. Keep appointment with counseling services as you have planned. Return here immediately for any new, worsening, or concerning symptoms. Is patient prescribed a controlled substance at d/c from ED?: No Referrals: Fany Coburn MD [Primary Care Provider] - 1-2 days Time of Disposition: 01:02
[2018-07-25 00:07] LABS: Creatine Kinase 53 U/L (30-135)
[2018-07-25 00:08] LABS: D-Dimer 0.36 mg/L FEU (<0.60); Partial Thromboplastin Time 23.6 sec (22.0-30.0)
[2018-07-25 00:12] LABS: Appearance,Urine Clear (Clear); Bilirubin,Urine Negative (Negative); Blood,Urine Negative (Negative); Color,Urine Light Yellow; Glucose,Urine (UA) Negative (Negative); Ketones,Urine Negative (Negative); Leukocyte Esterase,Urine Negative (Negative); Nitrite,Urine Negative (Negative); PH, Urine 5.5 (5.0-8.0); Protein,Urine Negative (Negative); Specific Gravity,Urine 1.004 (1.001-1.035); Urobilinogen,Urine <2.0 mg/dL (<2.0)
[2018-07-25 00:19] LABS: Troponin I <0.012 ng/mL (0.000-0.034)
[2018-07-25 00:21] LABS: Amphetamine Screen,Urine Not Detected (NotDetected); Benzodiazepines Screen,Urine Not Detected (NotDetected); Cocaine Screen,Urine Not Detected (NotDetected); Methadone Screen, Urine Not Detected (NotDetected); Opiate Screen,Urine Not Detected (NotDetected); Phencyclidine Screen,Urine Not Detected (NotDetected); Tricyclic Antidepressant,Urine Not Detected (NotDetected); Urn Cannabinoid Scrn Not Detected (NotDetected)
[2018-07-25 00:22] LABS: Barbiturate Screen,Urine Not Detected (NotDetected); Oxycodone Screen, Urine Not Detected (NotDetected)
[2018-07-25 01:07] VITALS: BP 123/67; PULSE 75; TEMP 97.5
== END 2018-07-25 01:12 | disposition home or self-care (01) ==
LOC: EC 22:45
DX: F41.0 Panic disorder [episodic paroxysmal anxiety] (principal); R07.89 Other chest pain; R06.02 Shortness of breath; K21.9 Gastro-esophageal reflux disease without esophagitis; F17.200 Nicotine dependence, unspecified, uncomplicated; Z79.899 Other long term (current) drug therapy; Z88.1 Allergy status to other antibiotic agents; Z88.5 Allergy status to narcotic agent
CPT/HCPCS: 36415; 93005; 85379; 80053; 82550; 82553; 84484; 85025; 85610; 85730; 81003; 81025; 80306; 71046; 99283; 96374; 96361; J2060

== ENCOUNTER 2018-07-26 13:27 | Emergency (ER) | payer BC ==
[2018-07-26] MEDS ORDERED: ALPRAZolam 0.5 MG TAB PO STA (13:53)
--- NOTE | 2018-07-26 15:17 | ED ---
Anxiety HPI - General Chief Complaint: Anxiety Stated Complaint: Panic Attack Time Seen by Provider: 07/26/18 13:40 Source: patient, family, RN notes reviewed, old records reviewed Mode of arrival: ambulatory - History of Present Illness Initial Comments: Patient is a 42-year-old female presents emergency department today with her chief complaint of anxiety attack. Patient reports that she was seen yesterday with similar complaints. She had a whole workup including cardiac workup. Pending was negative at time. She did feel better with Xanax. She reports that approximately 2 weeks ago she was seen again for the same problem. She was then prescribed Xanax and has short prescription filled by a fellow PA and the emergency department. She reports that she has taken those medications out. She states that she has an appointment with a psychiatrist and counselor in one week from today. Patient reports that she has no suicidal or homicidal thoughts. She reports that she has these panic attacks she stiffens up and cannot speak. - Related Data Home Medications: Home Medications Medication Instructions Recorded Confirmed Pantoprazole Sodium [Protonix] 40 mg PO DAILY 12/22/17 07/30/18 Sertraline [Zoloft] 100 mg PO BID 07/17/18 07/30/18 buPROPion HCL [Wellbutrin SR] 150 mg PO DAILY 07/17/18 07/30/18 Previous Rx's Medication Instructions Recorded ALPRAZolam [Xanax] 0.5 mg PO DAILY PRN #7 tablet 07/26/18 ALPRAZolam [Xanax] 0.5 mg PO TID PRN #12 tablet 07/30/18 Allergies/Adverse Reactions: Allergies Allergy/AdvReac Type Severity Reaction Status Date / Time cephalexin [From Keflex] Allergy Rash/Hives Verified 07/30/18 22:55 hydrocodone [From [place]] AdvReac Itching Verified 07/30/18 22:55 Review of Systems ROS Statement: Those systems with pertinent positive or pertinent negative responses have been documented in the HPI. ROS Other: All systems not noted in ROS Statement are negative. Past Medical History Past Medical History: GERD/Reflux, Osteoarthritis (OA), Rheumatoid Arthritis (RA ) Additional Past Medical History / Comment(s): CHRONIC BACK PAIN, Sjogrens History of Any Multi-Drug Resistant Organisms: None Reported Past Surgical History: Breast Surgery, Section, Tonsillectomy Additional Past Surgical History / Comment(s): LT BREAST BX. cervical spine fusion surgery Past Anesthesia/Blood Transfusion Reactions: No Reported Reaction Past Psychological History: Anxiety, Depression, Panic Disorder Smoking Status: Current every day smoker Past Alcohol Use History: None Reported Past Drug Use History: None Reported - Past Family History Father Family Medical History: CVA/TIA Additional Family Medical History / Comment(s): DAD= EMPHYZEMA. (MOM= HTN) Mother Family Medical History: Hypertension General Exam - General Exam Comments Initial Comments: This is a 42-year-old female. Alert and oriented. No acute distress. Limitations: no limitations General appearance: alert, in no apparent distress Head exam: Present: atraumatic, normocephalic, normal inspection Eye exam: Present: normal appearance, PERRL, EOMI. Absent: scleral icterus, conjunctival injection, periorbital swelling ENT exam: Present: normal exam, mucous membranes moist Neck exam: Present: normal inspection. Absent: tenderness, meningismus, lymphadenopathy Respiratory exam: Present: normal lung sounds bilaterally. Absent: respiratory distress, wheezes, rales, rhonchi, stridor Extremities exam: Present: normal inspection, full ROM, normal capillary refill. Absent: tenderness, pedal edema, joint swelling, calf tenderness Back exam: Present: normal inspection Neurological exam: Present: alert, oriented X3, CN II-XII intact Psychiatric exam: Present: normal affect, normal mood, anxious (Patient is anxious. Pacing around the room. Patient is not speaking. Majority a history from the .) Skin exam: Present: warm, dry, intact, normal color. Absent: rash Course Vital Signs 07/26/18 07/26/18 13:34 15:27 Temperature 98.6 F 98.5 F Pulse Rate 89 85 Respiratory 18 16 Rate Blood Pressure 134/75 128/72 O2 Sat by Pulse 99 100 Oximetry Medical Decision Making - Medical Decision Making 42-year-old female presents today treatment of anxiety attack. Patient was given Ativan. She does report that she is feeling better at this time. Patient was attempting appointment in 2 weeks. She denies any suicidal or homicidal thoughts. She was offered evaluation by psych services but declines at this time. We'll discharge the Patient with a very short prescription for Xanax follow-up appointment with her counselor and psychiatrist. Patient agrees to treatment plan will comply. Return parameters were discussed. Disposition Clinical Impression: Acute anxiety Disposition: HOME SELF-CARE Condition: Good Instructions: Generalized Anxiety Disorder (ED) Additional Instructions: Is advised to follow-up with counseling services. Return to emergency department if any alarming signs or symptoms occur. Prescriptions: ALPRAZolam [Xanax] 0.5 mg PO DAILY PRN #7 tablet PRN Reason: Anxiety Is patient prescribed a controlled substance at d/c from ED?: No Referrals: Fany Coburn MD [Primary Care Provider] - 1-2 days Time of Disposition: 15:16
[2018-07-26 15:28] VITALS: BP 128/72; PULSE 85; RESP 16; TEMP 98.5
== END 2018-07-26 15:28 | disposition home or self-care (01) ==
LOC: EC 13:27
DX: F41.0 Panic disorder [episodic paroxysmal anxiety] (principal); K21.9 Gastro-esophageal reflux disease without esophagitis; F32.9 Major depressive disorder, single episode, unspecified; F17.200 Nicotine dependence, unspecified, uncomplicated; Z79.899 Other long term (current) drug therapy; Z88.1 Allergy status to other antibiotic agents; Z88.5 Allergy status to narcotic agent; Z53.29 Procedure and treatment not carried out because of patient's decision for other reasons
CPT/HCPCS: 99283

== ENCOUNTER 2018-07-30 22:25 | Emergency (ER) | payer BC ==
[2018-07-30 22:30] VITALS: BP 116/73; PULSE 123; RESP 18; TEMP 99.1
[2018-07-30] MEDS ORDERED: LORazepam 2 MG/ML INJ IM STA (22:53)
--- NOTE | 2018-07-30 23:00 | ED ---
General Adult HPI - General Chief complaint: Anxiety Stated complaint: panic attack Time Seen by Provider: 07/30/18 22:31 Source: patient, RN notes reviewed, old records reviewed Mode of arrival: ambulatory Limitations: no limitations - History of Present Illness Initial comments: 42-year-old female history of anxiety and depression presents for evaluation of worsening anxiety and panic attack. Patient has had multiple ER visits over the past several days with worsening severity and frequency of her panic attacks. She has had these in the past, normally takes Benadryl, or other symptomatic treatments including 200 mg of these. She is normally able to calm her panic without hospital evaluation. She has had previous inpatient psychiatric admission for anxiety and panic attack. She was prescribed Xanax, she took her last medication this morning, she is unable to control her symptoms at home. She is currently on Zoloft and Wellbutrin. She has an appointment for counseling this Saturday which is 2 days away. Patient is reporting some dyspnea, she states this is typical of her attacks. No chest pain. - Related Data Home Medications Medication Instructions Recorded Confirmed Pantoprazole Sodium [Protonix] 40 mg PO DAILY 12/22/17 07/26/18 Sertraline [Zoloft] 100 mg PO BID 07/17/18 07/26/18 buPROPion HCL [Wellbutrin SR] 150 mg PO DAILY 07/17/18 07/26/18 Previous Rx's Medication Instructions Recorded ALPRAZolam [Xanax] 0.5 mg PO DAILY PRN #7 tablet 07/26/18 ALPRAZolam [Xanax] 0.5 mg PO TID PRN #12 tablet 07/30/18 Allergies Allergy/AdvReac Type Severity Reaction Status Date / Time cephalexin [From Keflex] Allergy Rash/Hives Verified 07/30/18 22:30 hydrocodone [From [place]] AdvReac Itching Verified 07/30/18 22:30 Review of Systems ROS Statement: Those systems with pertinent positive or pertinent negative responses have been documented in the HPI. ROS Other: All systems not noted in ROS Statement are negative. Past Medical History Past Medical History: GERD/Reflux, Osteoarthritis (OA), Rheumatoid Arthritis (RA ) Additional Past Medical History / Comment(s): CHRONIC BACK PAIN, Sjogrens, History of Any Multi-Drug Resistant Organisms: None Reported Past Surgical History: Breast Surgery, Section, Tonsillectomy Additional Past Surgical History / Comment(s): LT BREAST BX. cervical spine fusion surgery, Past Anesthesia/Blood Transfusion Reactions: No Reported Reaction Past Psychological History: Anxiety, Depression, Panic Disorder Smoking Status: Current every day smoker Past Alcohol Use History: None Reported Past Drug Use History: None Reported - Past Family History Father Family Medical History: CVA/TIA Additional Family Medical History / Comment(s): DAD= EMPHYZEMA. (MOM= HTN) Mother Family Medical History: Hypertension General Exam Limitations: no limitations General appearance: alert, anxious Head exam: Present: atraumatic, normocephalic Eye exam: Present: normal appearance, PERRL ENT exam: Present: normal exam Neck exam: Present: normal inspection. Absent: tenderness, meningismus Respiratory exam: Present: normal lung sounds bilaterally. Absent: respiratory distress, wheezes Cardiovascular Exam: Present: regular rate, normal rhythm GI/Abdominal exam: Present: soft. Absent: distended, tenderness, guarding Extremities exam: Present: normal inspection. Absent: pedal edema Neurological exam: Present: alert, oriented X3, CN II-XII intact. Absent: motor sensory deficit Psychiatric exam: Present: anxious. Absent: homicidal ideation, suicidal ideation Skin exam: Present: warm, dry, intact. Absent: cyanosis, diaphoretic Course Vital Signs 07/30/18 22:26 Temperature 99.1 F Pulse Rate 123 H Respiratory 18 Rate Blood Pressure 116/73 O2 Sat by Pulse 98 Oximetry Medical Decision Making - Medical Decision Making 42-year-old female presents for reevaluation of anxiety and panic attack. No suicidal or homicidal ideation. Patient is confident her symptoms are related to her anxiety. Patient is offered psychiatric evaluation the emergency department as this is her fourth visit. She declines. She states she was seen by mental health nurse and feels that her outpatient appointment in 2 days his adequate. She does not want psychiatric evaluation at this time. Patient is also offered further evaluation of her dyspnea, including x-ray, laboratory studies and EKG. She declines. She is confident this is her anxiety and panic attack and is requesting anxiolytic. She will be prescribed Xanax for the next several days. She will follow-up with psychiatry as planned. She is accompanied by her daughter, both the patient and her daughter are agreeable with this plan. They will return with any worsening or changing symptoms. Disposition Clinical Impression: Panic attack, Generalized anxiety disorder Disposition: HOME SELF-CARE Condition: Fair Instructions: Generalized Anxiety Disorder (ED) Additional Instructions: Please maintain appointment for counseling, return with worsening or changing symptoms. Prescriptions: ALPRAZolam [Xanax] 0.5 mg PO TID PRN #12 tablet PRN Reason: Anxiety Is patient prescribed a controlled substance at d/c from ED?: Yes When asked, does pt state using other controlled substances?: No If prescribed controlled substance>3 days was MAPS reviewed?: Prescribed <3 Days Referrals: Fany Coburn MD [Primary Care Provider] - 1-2 days Time of Disposition: 22:58
== END 2018-07-30 23:20 | disposition home or self-care (01) ==
LOC: EC 22:25
DX: F41.1 Generalized anxiety disorder (principal); F41.0 Panic disorder [episodic paroxysmal anxiety]; K21.9 Gastro-esophageal reflux disease without esophagitis; F32.9 Major depressive disorder, single episode, unspecified; F17.200 Nicotine dependence, unspecified, uncomplicated; Z98.1 Arthrodesis status; Z98.890 Other specified postprocedural states; Z79.899 Other long term (current) drug therapy; Z88.1 Allergy status to other antibiotic agents; Z88.5 Allergy status to narcotic agent
CPT/HCPCS: 99283; 96372; J2060

== ENCOUNTER 2019-01-11 02:30 | Emergency (ER) | payer OTHER ==
[2019-01-11 02:35] VITALS: RESP 18
[2019-01-11 03:23] LABS: Basophils % (A) 0 %; Eosinophils # (A) 0.2 k/uL (0-0.7); Eosinophils % (A) 2 %; HCT 41.5 % (34.0-46.0); HGB 13.7 gm/dL (11.4-16.0); Lymphocytes # (A) 2.8 k/uL (1.0-4.8); Lymphocytes % (A) 28 %; MCH 32.9 pg (25.0-35.0); MCV 99.7 fL (80.0-100.0); Mean Platelet Volume 7.1; Monocytes # (A) 0.6 k/uL (0-1.0); Monocytes % (A) 6 %; Neutrophils # (A) 6.3 k/uL (1.3-7.7); Neutrophils % (A) 62 %; Platelet Count 231 k/uL (150-450); RBC 4.16 m/uL (3.80-5.40); WBC 10.3 k/uL (3.8-10.6)
--- NOTE | 2019-01-11 03:39 | ED ---
Female Urogenital HPI - General Chief complaint: Vaginal Bleeding Stated complaint: Female Time Seen by Provider: 01/11/19 02:33 Source: patient Mode of arrival: ambulatory Limitations: no limitations - History of Present Illness Initial comments: Brittney is a 43-year-old female presents the emergency department today for evaluation of vaginal bleeding. Patient reports she's been experiencing having vaginal bleeding intermittently for approximately 2 months she has contacted gynecology and has a follow-up visit scheduled for January 15. Patient reports that the vaginal bleeding had decreased, this evening she states that she did drink a few alcoholic drinks, she then was having intercourse with her significant other when she noted heavy vaginal bleeding. Patient states she went to the restroom and noted large clots passed and the toilet. She then placed a tampon but when she stood in the shower to rinse off she noted she still had significant bleeding despite using a tampon. At that time her significant other decided, EMS transport her to the hospital for evaluation of this bleeding. Patient reports that since arrival in the emergency department she feels the bleeding is improving. She denies any chest pain, lightheadedness, shortness of breath or palpitations. She is not on any blood thinning, antiplatelet or anticoagulant medications. - Related Data Home Medications Medication Instructions Recorded Confirmed Pantoprazole Sodium [Protonix] 40 mg PO DAILY 12/22/17 07/30/18 Sertraline [Zoloft] 100 mg PO BID 07/17/18 07/30/18 buPROPion HCL [Wellbutrin SR] 150 mg PO DAILY 07/17/18 07/30/18 Previous Rx's Medication Instructions Recorded ALPRAZolam [Xanax] 0.5 mg PO DAILY PRN #7 tablet 07/26/18 ALPRAZolam [Xanax] 0.5 mg PO TID PRN #12 tablet 07/30/18 Allergies Allergy/AdvReac Type Severity Reaction Status Date / Time cephalexin [From Keflex] Allergy Rash/Hives Verified 01/11/19 02:36 Review of Systems ROS Statement: Those systems with pertinent positive or pertinent negative responses have been documented in the HPI. ROS Other: All systems not noted in ROS Statement are negative. Past Medical History Past Medical History: GERD/Reflux, Osteoarthritis (OA), Rheumatoid Arthritis (RA ) Additional Past Medical History / Comment(s): CHRONIC BACK PAIN, Sjogrens, History of Any Multi-Drug Resistant Organisms: None Reported Past Surgical History: Breast Surgery, Section, Tonsillectomy Additional Past Surgical History / Comment(s): LT BREAST BX. cervical spine fusion surgery, Past Anesthesia/Blood Transfusion Reactions: No Reported Reaction Past Psychological History: Anxiety, Depression, Panic Disorder Smoking Status: Current every day smoker Past Alcohol Use History: None Reported Past Drug Use History: None Reported - Past Family History Father Family Medical History: CVA/TIA Additional Family Medical History / Comment(s): DAD= EMPHYZEMA. (MOM= HTN) Mother Family Medical History: Hypertension General Exam - General Exam Comments Initial Comments: Physical Exam GENERAL: Patient is well-developed and well-nourished. Patient is nontoxic and well- hydrated and is in no distress. HENT: Normocephalic, Atraumatic. EYES: PERRL, EOMI PULMONARY: Unlabored respirations. No audible rales rhonchi or wheezing was noted. CARDIOVASCULAR: There is a regular rate and rhythm without any murmurs gallops or rubs. ABDOMEN: Soft and nontender with normal bowel sounds. SKIN: Skin is clear with no lesions or rashes and otherwise unremarkable. : External genitalia reveals an approximately 1 cm laceration to the right labia minora with some surrounding ecchymosis. There are dark clots in the vaginal vault, cervical os is closed her no clots at the cervical os there is no increased bleeding with bearing down or coughing. NEUROLOGIC: Patient is alert and oriented x3. Moving all extremities spontaneously MUSCULOSKELETAL: Normal extremities with adequate strength and full range of motion. No lower extremity swelling or edema. No calf tenderness. PSYCHIATRIC: Normal psychiatric evaluation. Limitations: no limitations Limitations: no limitations Course Vital Signs 01/11/19 01/11/19 02:31 03:50 Temperature 97.8 F 97.9 F Pulse Rate 81 78 Respiratory 18 18 Rate Blood Pressure 129/95 102/68 O2 Sat by Pulse 99 99 Oximetry Medical Decision Making - Medical Decision Making Patient was seen and evaluated history was obtained from patient and . Both patient and admit that they're currently intoxicated that they attempted to have intercourse and she had some significant vaginal bleeding. Patient became concerned wears continued bleeding after she placed a tampon. Physical exam is concerning for a labia minora laceration at this time there is no active bleeding however the laceration is approximately 1 cm in length and does have some clot noted. At this time and don't feel the laceration warrants a repair however I do suspect that this is the cause of the bleeding around the tampon. Patient does also have dark bleeding in the vaginal vault with no active bleeding from the cervix. She's been in the emergency department for over an hour and has only spotting on her pad. At this time I'm not concerned about the patient's blood loss. Her hemoglobin is stable she has follow-up outpatient scheduled with gynecology for her irregular menstrual bleeding and at this time patient's comfortable with the plan for discharge home and outpatient follow-up. - Lab Data Result diagrams: 01/11/19 02:50 Lab Results 01/11/19 01/11/19 01/11/19 Range/Units 02:50 03:45 03:45 WBC 10.3 (3.8-10.6) k/uL RBC 4.16 (3.80-5.40) m/uL Hgb 13.7 (11.4-16.0) gm/dL Hct 41.5 (34.0-46.0) % MCV 99.7 (80.0-100.0) fL MCH 32.9 (25.0-35.0) pg MCHC 33.0 (31.0-37.0) g/dL RDW 13.0 (11.5-15.5) % Plt Count 231 (150-450) k/uL Neutrophils % 62 % Lymphocytes % 28 % Monocytes % 6 % Eosinophils % 2 % Basophils % 0 % Neutrophils # 6.3 (1.3-7.7) k/uL Lymphocytes # 2.8 (1.0-4.8) k/uL Monocytes # 0.6 (0-1.0) k/uL Eosinophils # 0.2 (0-0.7) k/uL Basophils # 0.0 (0-0.2) k/uL Urine Color Colorless Urine Appearance Clear (Clear) Urine pH 5.0 (5.0-8.0) Ur Specific [place] 1.001 (1.001-1.035) Urine Protein Negative (Negative) Urine Glucose (UA) Negative (Negative) Urine Ketones Negative (Negative) Urine Blood Moderate H (Negative) Urine Nitrite Negative (Negative) Urine Bilirubin Negative (Negative) Urine Urobilinogen <2.0 (<2.0) mg/dL Ur Leukocyte Esterase Negative (Negative) Urine RBC <1 (0-5) /hpf Urine HCG, Qual Not Detected (Not Detectd) Disposition Clinical Impression: Menometrorrhagia, Laceration of labial mucosa without complication Disposition: HOME SELF-CARE Condition: Good Instructions (If sedation given, give patient instructions): Dysfunctional Uterine Bleeding (ED) Is patient prescribed a controlled substance at d/c from ED?: No Referrals: None,Stated [Primary Care Provider] - 1-2 days Benja Winston DO [Doctor of Osteopathic Medicine] - 1-2 days
[2019-01-11 03:59] LABS: Appearance,Urine Clear (Clear); Bilirubin,Urine Negative (Negative); Blood,Urine Moderate (Negative); Color,Urine Colorless; Glucose,Urine (UA) Negative (Negative); Ketones,Urine Negative (Negative); Leukocyte Esterase,Urine Negative (Negative); Nitrite,Urine Negative (Negative); Protein,Urine Negative (Negative); RBC,Urine <1 /hpf (0-5); Specific Gravity,Urine 1.001 (1.001-1.035); Urobilinogen,Urine <2.0 mg/dL (<2.0)
[2019-01-11 04:22] VITALS: BP 102/68; PULSE 78; TEMP 97.9
== END 2019-01-11 03:45 | disposition home or self-care (01) ==
LOC: EC 02:30
DX: S31.41XA Laceration without foreign body of vagina and vulva, initial encounter (principal); N92.1 Excessive and frequent menstruation with irregular cycle; F10.129 Alcohol abuse with intoxication, unspecified; K21.9 Gastro-esophageal reflux disease without esophagitis; F41.9 Anxiety disorder, unspecified; F32.9 Major depressive disorder, single episode, unspecified; F17.200 Nicotine dependence, unspecified, uncomplicated; Z79.899 Other long term (current) drug therapy; Z88.1 Allergy status to other antibiotic agents; X58.XXXA Exposure to other specified factors, initial encounter
CPT/HCPCS: 36415; 81001; 81025; 85025; 99284

== ENCOUNTER → 2019-01-23 | Outpatient (CLI) | payer OTHER ==
--- NOTE | 2019-01-23 14:50 | US ---
EXAMINATION TYPE: US pelvis complete transvag DATE OF EXAM: 01/23/2019 COMPARISON: CLINICAL HISTORY: N93.8 DUB. irregular bleeding x 2 months, hx tubal ligation TECHNIQUE: Transvaginal (TV) and Transabdominal (TA) . Transabdominal sonographic images of the pel vis were acquired. Transvaginal sonographic images were medically necessary to better assess the fol lowing anatomy: Endometrium Date of LMP: 11/25/2018, EXAM MEASUREMENTS: Uterus: 6.5 x 4.7 x 4.3 cm Endometrial Stripe: 0.7 cm Right Ovary: 2.5 x 1.4 x 1.4 cm Left Ovary: 3.5 x 2.6 x 2.1 cm Grayscale and color Doppler imaging performed 1. Uterus: Retroflexed Heterogenous, no prominent lesions seen 2. Endometrium: wnl 3. Right Ovary: wnl 4. Left Ovary: cystic appearing lesion seen - 2.9 x 2.1 x 2.3 cm 5. Bilateral Adnexa: wnl 6. Posterior cul-de-sac: no free fluid IMPRESSION: No there is a left ovarian cyst..
== END | disposition home or self-care (01) ==
LOC: RADUSWWP 12:58
PROVIDERS: ATTEND Obstetrics & Gynecology
DX: N93.8 Other specified abnormal uterine and vaginal bleeding (principal)
CPT/HCPCS: 76830; 76856

== ENCOUNTER → 2019-03-19 | Outpatient (CLI) | payer OTHER ==
[2019-03-19 16:31] LABS: Basophils % (A) 0 %; Eosinophils # (A) 0.1 k/uL (0-0.7); Eosinophils % (A) 2 %; HCT 44.1 % (34.0-46.0); HGB 14.4 gm/dL (11.4-16.0); Lymphocytes # (A) 1.5 k/uL (1.0-4.8); Lymphocytes % (A) 18 %; MCH 31.8 pg (25.0-35.0); MCHC 32.6 g/dL (31.0-37.0); MCV 97.7 fL (80.0-100.0); Mean Platelet Volume 8.3; Monocytes # (A) 0.5 k/uL (0-1.0); Monocytes % (A) 6 %; Neutrophils # (A) 6.1 k/uL (1.3-7.7); Neutrophils % (A) 72 %; Platelet Count 209 k/uL (150-450); RBC 4.52 m/uL (3.80-5.40); RDW 13.5 % (11.5-15.5); WBC 8.5 k/uL (3.8-10.6)
== END ==
LOC: LABPAT 15:22
PROVIDERS: ATTEND Obstetrics & Gynecology
DX: Z01.812 Encounter for preprocedural laboratory examination (principal)
CPT/HCPCS: 36415; 85025

== ENCOUNTER 2019-03-20 06:31 | Day surgery (SDC) | payer OTHER ==
[2019-03-18 12:10] VITALS: BMI 29.2
--- NOTE | 2019-03-19 16:37 | P.HPOB ---
History of Present Illness H&P Date: 03/19/19 Chief Complaint: Menorrhagia This 43-year-old female has heavy vaginal bleeding. Patient relates that she is had heavy vaginal bleeding since October with essentially daily bleeding over that four-month timeframe. She was initially interested in a hysterectomy but as her ultrasound and blood work show she is likely better candidate for NovaSure with a D&C. Risks/benefits/alternatives to this procedure were discussed with the patient in detail and all questions were answered for the patient prior to proceeding to the operating room. She is therefore scheduled for D&C with hysteroscopy and NovaSure she has a history of a tubal ligation prior Past Medical History Past Medical History: GERD/Reflux, Osteoarthritis (OA), Rheumatoid Arthritis (RA) Additional Past Medical History / Comment(s): CHRONIC BACK PAIN, SJORGRENS, STATES POSITIVE CHARLA. , MENORRHAGIA History of Any Multi-Drug Resistant Organisms: None Reported Past Surgical History: Back Surgery, Breast Surgery, Section, Tonsillectomy Additional Past Surgical History / Comment(s): LT BREAST BX. cervical spine fusion surgery, Past Anesthesia/Blood Transfusion Reactions: No Reported Reaction Past Psychological History: Anxiety, Depression, Panic Disorder Additional Psychological History / Comment(s): recently began treatment for anxiety Smoking Status: Current every day smoker Past Alcohol Use History: Occasional Additional Past Alcohol Use History / Comment(s): SMOKES 1/2 PPD, SMOKING SINCE 13 YRS OLD. Past Drug Use History: None Reported - Past Family History Father Family Medical History: CVA/TIA Additional Family Medical History / Comment(s): DAD= EMPHYZEMA. (MOM= HTN) Mother Family Medical History: Hypertension Medications and Allergies Home Medications Medication Instructions Recorded Confirmed Type Pantoprazole Sodium [Protonix] 40 mg PO DAILY 12/22/17 03/18/19 History Sertraline [Zoloft] 100 mg PO HS 07/17/18 03/18/19 History ALPRAZolam [Xanax] 1 mg PO QID PRN 03/18/19 03/18/19 History ARIPiprazole [Abilify] 15 mg PO HS 03/18/19 03/18/19 History Ibuprofen [Motrin] 800 mg PO DIRECTED PRN 03/18/19 03/18/19 History Allergies Allergy/AdvReac Type Severity Reaction Status Date / Time cephalexin [From Keflex] Allergy Rash/Hives Verified 03/18/19 11:03 Exam Osteopathic Statement: *. No significant issues noted on an osteopathic structural exam other than those noted in the History and Physical/Consult. - OBG Physical Exam Breast: both: normal (no masses) Abdomen: bowel sounds normal, no diffuse tenderness, no bruit present, no guarding noted, no hepatomegaly, no splenomegaly, no mass Vulva: both: normal Vagina: normal moisture, no discharge Cervix: no lesion, no discharge Uterus: normal size, normal contour Adnexa: both: normal Anus/Rectum: normal perianal skin, no rectal mass, no hemorrhoids, heme negative
[~2019-03-20 06:31] MED LIST: Pre Op ABX Message 1 EACH MISC MISCELLANE ONE
[2019-03-20] MEDS ORDERED: LACTATED RINGERS 1,000 ML IV ONE ×2 (07:11→09:03)
[2019-03-20] MEDS ORDERED: ONDANSETRON 4 MG/2 ML VIAL IVP ONE (07:14)
[2019-03-20] MEDS ORDERED: MIDAZOLAM (PF) 2 MG/2 ML VIAL IVP ONE (07:15)
[2019-03-20] MEDS ORDERED: DEXAMETHASONE SOD PHOSPHATE 10 MG/ML 1 ML VIAL IV ONE (07:15)
[2019-03-20] MEDS ORDERED: SUCCINYLCHOLINE CHLORIDE 100 MG/5 ML SYR IV ONE (07:44)
[2019-03-20] MEDS ORDERED: fentaNYL (PF) 50 MCG/ML 2 ML AMP ONE (07:44)
[2019-03-20] MEDS ORDERED: LIDOCAINE 1% INJ 10MG/ML (20 ML MDV) ONE (07:44)
[2019-03-20] MEDS ORDERED: KETOROLAC 30 MG/ML 1 ML VIAL ONE (07:44)
[2019-03-20] MEDS ORDERED: PROPOFOL 10 MG/ML 20 ML VIAL IV ONE (07:44)
[2019-03-20] MEDS ORDERED: MIDAZOLAM 2 MG/2 ML VIAL ONE (07:44)
--- NOTE | 2019-03-20 08:23 | P.OP ---
Date of Procedure: 03/20/19 Preoperative Diagnosis: Menorrhagia Postoperative Diagnosis: Same Procedure(s) Performed: D&C with hysteroscopy and NovaSure Anesthesia: DELON Surgeon: Benja Winston Estimated Blood Loss (ml): 3 Pathology: other (Uterine curettings) Condition: stable Disposition: same day Operative Findings: Tissue pathology pending Description of Procedure: Patient was taken to the operating suite where general anesthetic was found be adequate. She was prepped and draped in the normal sterile fashion and placed in the dorsal lithotomy position. Initially a weighted speculum was inserted into the vagina and the anterior lip of the cervix identified and grasped with an Allis clamp. Uterus was then sounded to 8 cm and cervix was dilated. Camera was then inserted, proliferative endometrium noted. Camera was then removed and sharp curettings of endometrium were obtained. Tissues collected and placed on Telfa sent to pathology. Once this was accomplished NovaSure system was inserted with length of 4 and a width of 3 was tested. Once it passes patency test it was enabled and activated. The burn lasted 91 seconds. At this conclusion, camera was reinserted with excellent burn noted. All incidents were then removed. Sponge, lap, needle counts were all correct 2. Patient was then taken to the recovery room in stable and satisfactory condition. Plan - Discharge Summary Discharge Rx Participant: Yes New Discharge Prescriptions: New Ibuprofen [Motrin] 600 mg PO Q6HR PRN #30 tab PRN Reason: Pain No Action Pantoprazole Sodium [Protonix] 40 mg PO DAILY Sertraline [Zoloft] 100 mg PO HS ALPRAZolam [Xanax] 1 mg PO QID PRN PRN Reason: Anxiety ARIPiprazole [Abilify] 15 mg PO HS Ibuprofen [Motrin] 800 mg PO DIRECTED PRN PRN Reason: Pain Discharge Medication List Pantoprazole Sodium [Protonix] 40 mg PO DAILY 12/22/17 [History] Sertraline [Zoloft] 100 mg PO HS 07/17/18 [History] ALPRAZolam [Xanax] 1 mg PO QID PRN 03/18/19 [History] ARIPiprazole [Abilify] 15 mg PO HS 03/18/19 [History] Ibuprofen [Motrin] 800 mg PO DIRECTED PRN 03/18/19 [History] Ibuprofen [Motrin] 600 mg PO Q6HR PRN #30 tab 03/20/19 [Rx] Follow up Appointment(s)/Referral(s): Benja Winston DO [Doctor of Osteopathic Medicine] - 2 Weeks Activity/Diet/Wound Care/Special Instructions: No heavy lifting, limit stairs and driving, and pelvic rest. If any high temperatures, heavy bleeding, or severe pain call my office Discharge Disposition: HOME SELF-CARE
[2019-03-20 08:42] VITALS: RESP 16; TEMP 97.8
[2019-03-20] MEDS ORDERED: MEPERIDINE 50 MG/ML SYRINGE IVP ONE (08:51)
[2019-03-20 10:09] VITALS: BP 129/82; PULSE 74
== END 2019-03-20 10:23 | disposition home or self-care (01) ==
LOC: OR 06:31
PROVIDERS: ATTEND Obstetrics & Gynecology
DX: N92.0 Excessive and frequent menstruation with regular cycle (principal); K21.9 Gastro-esophageal reflux disease without esophagitis; M19.90 Unspecified osteoarthritis, unspecified site; M06.9 Rheumatoid arthritis, unspecified; G89.29 Other chronic pain; Z98.1 Arthrodesis status; F32.9 Major depressive disorder, single episode, unspecified; F41.0 Panic disorder [episodic paroxysmal anxiety]; F41.9 Anxiety disorder, unspecified; F17.200 Nicotine dependence, unspecified, uncomplicated; Z82.3 Family history of stroke; Z83.6 Family history of other diseases of the respiratory system; Z82.49 Family history of ischemic heart disease and other diseases of the circulatory system; Z79.1 Long term (current) use of non-steroidal anti-inflammatories (NSAID); Z79.899 Other long term (current) drug therapy; Z88.1 Allergy status to other antibiotic agents
CPT/HCPCS: 81025; 88305; 58563; J2250 ×2; J1100; J2175; J2405; J2001; J3010; J1885; J0330; J2704

== ENCOUNTER 2019-05-21 05:47 | Emergency (ER) | payer OTHER ==
[2019-05-21 06:20] VITALS: BP 143/82; PULSE 75; RESP 20; TEMP 97.7
== END 2019-05-21 07:30 ==
LOC: EC 05:47
DX: Z02.89 Encounter for other administrative examinations (principal)

== ENCOUNTER 2019-06-29 10:38 | Emergency (ER) | payer OTHER ==
[2019-06-29 11:04] VITALS: BP 121/46; PULSE 89; RESP 18; TEMP 97.9
[2019-06-29] MEDS ORDERED: KETOROLAC 30 MG/ML 1 ML VIAL IM STA (11:12)
--- NOTE | 2019-06-29 11:39 | XR ---
EXAMINATION TYPE: XR elbow complete RT DATE OF EXAM: 06/29/2019 COMPARISON: NONE HISTORY: 43-year-old female with pain TECHNIQUE: 3 views FINDINGS: No joint effusion. No acute fracture, subluxation, or dislocation. IMPRESSION: No acute osseous abnormality seen.
--- NOTE | 2019-06-29 12:15 | ED ---
General Adult HPI - General Chief complaint: Extremity Problem,Nontraumatic Stated complaint: arm pain Time Seen by Provider: 06/29/19 11:06 Source: patient Mode of arrival: ambulatory Limitations: no limitations - History of Present Illness Initial comments: Patient is a 43-year-old female presenting to emergency Department with a chief complaint of right elbow pain. Patient reports the pain started approximately 2 weeks ago and is slowly increasing severity. Patient reports the pain is exacerbated with elbow extension and alleviated at rest. Patient reports intermittent numbness and tingling. Patient denies any trauma to the region. Patient denies edema, erythema or skin discoloration. Patient reports limited range of motion. Patient worsen affected areas constantly using her arms. Patient reports pain with palpation of the right elbow. - Related Data Home Medications Medication Instructions Recorded Confirmed Pantoprazole Sodium [Protonix] 40 mg PO DAILY 12/22/17 06/29/19 Sertraline [Zoloft] 100 mg PO HS 07/17/18 06/29/19 ARIPiprazole [Abilify] 15 mg PO HS 03/18/19 06/29/19 Allergies Allergy/AdvReac Type Severity Reaction Status Date / Time cephalexin [From Keflex] Allergy Rash/Hives Verified 06/29/19 11:11 Review of Systems ROS Statement: Those systems with pertinent positive or pertinent negative responses have been documented in the HPI. ROS Other: All systems not noted in ROS Statement are negative. Past Medical History Past Medical History: GERD/Reflux, Osteoarthritis (OA), Rheumatoid Arthritis (RA) Additional Past Medical History / Comment(s): CHRONIC BACK PAIN, SJORGRENS, STATES POSITIVE CHARLA. , MENORRHAGIA History of Any Multi-Drug Resistant Organisms: None Reported Past Surgical History: Back Surgery, Breast Surgery, Section, Tonsillectomy Additional Past Surgical History / Comment(s): LT BREAST BX. cervical spine fusion surgery, Past Anesthesia/Blood Transfusion Reactions: No Reported Reaction Past Psychological History: Anxiety, Depression, Panic Disorder Smoking Status: Current every day smoker Past Alcohol Use History: Daily Past Drug Use History: None Reported - Past Family History Father Family Medical History: CVA/TIA Additional Family Medical History / Comment(s): DAD= EMPHYZEMA. (MOM= HTN) Mother Family Medical History: Hypertension General Exam - General Exam Comments Initial Comments: General: Well-developed well-nourished distress HEENT: Normocephalic/atraumatic, PERLL, pharynx erythema, swallowing well, EAC no erythema, no exudates, TM clear, no cervical lymph nodes Neck: Supple, nontender, trachea midline Chest/Lungs: Normal respirations, no signs of respiratory distress clear to auscultation bilaterally no wheezes, rales, rhonchi Cardiac: Regular rate and rhythm, normal S1-S2, no murmurs rubs or gallops Abdomen/GI: Soft nontender, bowel sounds equal or quadrant x4, no guarding, no rebound no CVA tenderness Musculoskeletal: Pain with palpation along the posterior aspect of the right elbow, no pain along the lateral or medial aspect of the proximal forearm, limited range of motion especially full extension, no bursitis noted, no skin discoloration erythema or edema Skin: Warmth, no rashes or lesions, no cyanosis or diaphoresis Neurologic: AAO x 3, CN 2-12 intact, Psychiatric: Mood and affect normal, judgment normal Limitations: no limitations Course Vital Signs 06/29/19 10:58 Temperature 97.9 F Pulse Rate 89 Respiratory 18 Rate Blood Pressure 121/46 O2 Sat by Pulse 97 Oximetry Medical Decision Making - Medical Decision Making Patient is a 43-year-old female presenting to emergency Department with a chief complaint of right elbow pain. X-ray of the right elbow is negative for acute fracture or dislocations. Based on physical examination and imaging I suspect the patient to have either tendinitis or cubital tunnel syndrome which could be causing the intermittent numbness and tingling radiating distally along with pain with movement. Patient advised to alternate between Tylenol and ibuprofen for pain control. Nilay wrap was applied. Strict return parameters were thoroughly discussed patient was understanding and agreeable. Patient is to follow with orthopedics. Case discussed with physician. Disposition Clinical Impression: Right elbow tendinitis Disposition: HOME SELF-CARE Condition: Stable Instructions (If sedation given, give patient instructions): Tennis Elbow (ED) Additional Instructions: Please follow with field technical specialist. Alternate between Tylenol and ibuprofen for pain control. Apply ice compress to minimize symptoms. Please return to emergency department if symptoms worsen. Is patient prescribed a controlled substance at d/c from ED?: No Referrals: Andrew Sierra MD [Primary Care Provider] - 1-2 days José Luis Solano MD [Medical Doctor] - 1-2 days Time of Disposition: 12:15
== END 2019-06-29 12:27 | disposition home or self-care (01) ==
LOC: EC 10:38
DX: M77.8 Other enthesopathies, not elsewhere classified (principal); K21.9 Gastro-esophageal reflux disease without esophagitis; F41.0 Panic disorder [episodic paroxysmal anxiety]; F32.9 Major depressive disorder, single episode, unspecified; F17.200 Nicotine dependence, unspecified, uncomplicated; Z79.899 Other long term (current) drug therapy; Z88.1 Allergy status to other antibiotic agents; Z98.1 Arthrodesis status
CPT/HCPCS: 73080; 99283; 96372; J1885

== ENCOUNTER → 2019-08-24 | Outpatient (CLI) | payer OTHER ==
[2019-08-24 14:31] LABS: Basophils # (A) 0.1 k/uL (0-0.2); Basophils % (A) 1 %; Eosinophils # (A) 0.1 k/uL (0-0.7); Eosinophils % (A) 1 %; HCT 45.6 % (34.0-46.0); HGB 15.3 gm/dL (11.4-16.0); Lymphocytes # (A) 1.8 k/uL (1.0-4.8); Lymphocytes % (A) 18 %; MCH 31.8 pg (25.0-35.0); MCHC 33.6 g/dL (31.0-37.0); MCV 94.7 fL (80.0-100.0); Mean Platelet Volume 6.7; Monocytes # (A) 0.5 k/uL (0-1.0); Monocytes % (A) 5 %; Neutrophils # (A) 7.2 k/uL (1.3-7.7); Neutrophils % (A) 73 %; Platelet Count 232 k/uL (150-450); RBC 4.81 m/uL (3.80-5.40)
[2019-08-24 19:30] LABS: Rheumatoid Factor 10 IU/mL (0-15)
[2019-08-24 23:26] LABS: African American GFR (CKD) 105.4 (60.0-200.0); Albumin 4.7 g/dL (3.80-4.90); Albumin/Globulin Ratio 1.68 (1.60-3.17); Anion Gap 7.2 mmol/L (4.00-12.00); Calcium 9.6 mg/dL (8.7-10.3); Carbon Dioxide 23.8 mmol/L (21.6-31.8); Globulin 2.8 g/dL (1.6-3.3); Potassium 4.6 mmol/L (3.5-5.5); Total Bilirubin 0.5 mg/dL (0.3-1.2); Total Protein 7.5 g/dL (6.2-8.2)
[2019-08-25 13:15] LABS: APTT 40 Sec(s) (<43); Dilute Russell Viper Venom 41 Sec(s) (<44)
[2019-08-25 13:49] LABS: ANA Pattern Speckled
== END ==
LOC: LABWHC1 13:31
PROVIDERS: ATTEND Family Medicine
DX: I10 Essential (primary) hypertension (principal); G89.21 Chronic pain due to trauma; Z79.899 Other long term (current) drug therapy
CPT/HCPCS: 36415; 80053; 84443; 85025; 85613; 85730; 86038; 86039; 86431

== ENCOUNTER 2020-02-15 11:31 | Observation (INO) | payer OTHER ==
[2020-02-15] MEDS ORDERED: LORazepam 2 MG/ML INJ IV PRN (12:43)
[2020-02-15] MEDS ORDERED: LORazepam 2 MG/ML INJ ONE (12:53)
[2020-02-15 13:17] LABS: Basophils % (A) 0 %; Eosinophils # (A) 0.1 k/uL (0-0.7); Eosinophils % (A) 1 %; HCT 43.5 % (34.0-46.0); HGB 14.7 gm/dL (11.4-16.0); Lymphocytes % (A) 24 %; MCH 30.7 pg (25.0-35.0); MCHC 33.8 g/dL (31.0-37.0); MCV 90.7 fL (80.0-100.0); Mean Platelet Volume 7.9; Monocytes # (A) 0.5 k/uL (0-1.0); Monocytes % (A) 6 %; Neutrophils # (A) 5.6 k/uL (1.3-7.7); Neutrophils % (A) 66 %; Platelet Count 287 k/uL (150-450); RDW 13.2 % (11.5-15.5); WBC 8.5 k/uL (3.8-10.6)
[2020-02-15 13:20] LABS: ALT 26 U/L (4-34); AST 21 U/L (14-36); African American GFR (CKD) >90 (>60 ml/min/1.73 sqM); Albumin 4.7 g/dL (3.5-5.0); Alkaline Phosphatase 83 U/L (38-126); Anion Gap 10 mmol/L; Blood Urea Nitrogen 14 mg/dL (7-17); Calcium 9.9 mg/dL (8.4-10.2); Carbon Dioxide 21 mmol/L (22-30); Chloride 104 mmol/L (98-107); Glucose 92 mg/dL (74-99); Non-African American GFR(CKD) >90 (>60 ml/min/1.73 sqM); Potassium 4.3 mmol/L (3.5-5.1); Sodium 135 mmol/L (137-145); Total Bilirubin 0.6 mg/dL (0.2-1.3); Total Protein 8.2 g/dL (6.3-8.2)
--- NOTE | 2020-02-15 13:24 | XR ---
EXAMINATION TYPE: XR chest 2V DATE OF EXAM: 02/15/2020 COMPARISON: 07/24/2018 HISTORY: 44-year-old female with asthma and COPD TECHNIQUE: Frontal and lateral views FINDINGS: Heart upper limits of normal in size. Aorta and pulmonary vasculature are within normal limits. Mild peribronchial cuffing centrally. No consolidation or pleural effusion. IMPRESSION: Mild central peribronchial cuffing could reflect bronchitis or asthma. Otherwise, no focal infiltrate seen.
--- NOTE | 2020-02-15 13:48 | P.CN ---
Psychiatric Consult - . 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 HISTORY OF PRESENT ILLNESS: The patient presented to the hospital with significant panic attacks and anxiety and was a direct admission by Dr Gillis. Psychiatry was consulted for anxiety/panic attacks. Patient described having a significant history of anxiety since being in penitentiary approximately 4 years ago. She states that the panic attacks are happening frequently throughout the day approximately 2-3 times during the day and cause her to feel scared and did not want to leave the house. She spoke about poor quality of life and inhibiting her from doing several things during her day. She claims that the panic attacks last approximately 1 hour in duration and have no significant triggers and feels short of breath and a feeling of doom and her heart's racing when she does experience this. She claims that her mood is "down" however denies any significant depression at this time. She denies any changes in her energy or appetite. She states that her sleep is poor due to the panic attacks. She also claims that she has been taking Xanax approximately 1-2 times per day taking 1 mg. At this time patient denies any suicidal or homical ideations, intent or plan. Patient denies any auditory, visual hallucinations and denies any paranoia or delusions. Patient denies using any recreational drugs cigarettes or alcohol. PAST PSYCHIATRIC HISTORY: She claims have a significant history of anxiety and panic attacks. She was previously on Zoloft 100 mg at bedtime, Abilify 15 mg daily at bedtime and also does not have a outpatient psychiatrist. She states that she follows up with her primary care physician for these medications. She denies any previous psychiatric hospitalizations. She denies any history of suicide attempts. PAST MEDICAL HISTORY: GERD, osteoarthritis, rheumatoid arthritis. ALLERGIES: as per EMR. CHEMICAL DEPENDENCY HISTORY: as per HPI. FAMILY PSYCHIATRIC/SUBSTANCE USE HISTORY: Dates that her great-grandmother suffered from depression SOCIAL HISTORY: Claims to be born and raised in [facility] and has some college and completed high school. 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 She states that she lives with her [id number] and is engaged. MENTAL STATUS EXAM: General Appearance: Patient appears to be stated age is alert, pleasant, and attempts to be cooperative. Patient appears to have fair hygiene and grooming wearing hospital gown with fair eye contact. Behavior: Patient is calmly lying in bed without any agitated behavior. Times to cooperate. Speech: Patient's speech is fluent and nonpressured. Mood/Affect: Patient reports their mood is "down", affect is congruent and constricted. Suicidality/Homicidality: Patient denies having any suicidal or homicidal ideation intent or plan. Perceptions: Patient denies any visual hallucinations and denies any auditory hallucinations Though content/process: There is no evidence of any delusional thought content and thought process is linear and goal-directed. Preoccupied with her anxiety. Racing thoughts. Memory and concentration: AOX3, grossly intact for the purposes of this session. Can spell "WORLD" backwards Judgment and insight: Fair IMPRESSIONS: Panic disorder with Agoraphobia. Depressive disorder unspecified. PLAN: -At this time patient DOES NOT meet criteria for inpatient psychiatric admission. -Would recommend the following medication changes/additions: Increase Zoloft to 150 mg daily for mood/anxiety, discontinued Abilify at this time as this may be contributing to patient's anxiety. Started Seroquel 25 mg daily at bedtime for anxiety/insomnia/mood. Added melatonin 5 mg daily at bedtime for sleep. BuSpar 10 mg twice a day for anxiety. Will hold off on Xanax at this time. -Will continue to follow along -Please contact with any questions.
[2020-02-15] MEDS: SODIUM CHLORIDE 0.9% 1,000 ML IV SCH (14:23)
[2020-02-15] MEDS: busPIRone HCl 10 MG TAB PO SCH ×2 (14:24→20:56)
[2020-02-15] MEDS: SERTRALINE 100 MG TAB PO SCH (14:24)
--- NOTE | 2020-02-15 14:52 | P.CRDCN ---
History of Present Illness History of present illness: HISTORY OF PRESENTING ILLNESS This is a pleasant 44-year-old female past medical history significant for anxiety, arthritis and chronic nicotine dependence. She denies prior histo ry of coronary artery disease and does not follow in the office with a loose hand packer. We have been asked to see in consultation for shortness of breath. She is seen and examined resting comfortably laying flat in bed in no acute distress. She states she was in her primary care physician's office this morning when she had what she describes as a panic attack. She states she becomes acutely short of breath. She starts feeling intense pressure in the chest with radiation into both shoulders down both arms through to her back into her neck and associated with bilateral hand numbness and tingling. This episode lasted for approximately 5-10 minutes. She states her anxiety attacks have become more frequent recently with no specific aggravating factor. She is currently having no symptoms of chest pain, shortness of breath, dizziness or palpitations. There is no EKG obtained on admission. Chest x-ray reveals evidence of peribronchial cuffing suggestive of bronchitis. Laboratory data re viewed, CBC unremarkable, d-dimer 0.3, sodium 135, potassium 4.3, creatinine 0.65, troponin negative 1. Home medications include albuterol, Percocet, Zoloft, propanolol, Abilify and Xanax. She underwent stress echocardiogram in 2017 that was negative for stress-induced ischemia. Echocardiogram obtained at that time revealed preserved LV systolic function with ejection fraction 60-65%. REVIEW OF SYSTEMS At the time of my exam: CONSTITUTIONAL: Denies fever or chills. CARDIOVASCULAR: Denies chest pain, shortness of breath, orthopnea, PND or palpitations. RESPIRATORY: Denies cough. GASTROINTESTINAL: Denies abdominal pain, diarrhea, constipation, nausea or vomiting. MUSCULOSKELETAL: Denies myalgias. NEUROLOGIC: Denies numbness, tingling or weakness. ENDOCRINE: Denies fatigue, weight change, polydipsia or polyurina. GENITOURINARY: Denies burning, hematuria or urgency with micturation. HEMATOLOGIC: Denies history of anemia or bleeding. PHYSICAL EXAMINATION Blood pressure 127/59 heart rate 74 afebrile and maintaining oxygen saturation on room air. CONSTITUTIONAL: No apparent distress. HEENT: Head is normocephalic. Pupils are equal, round. Sclerae anicteric. Mucous membranes of the mouth are moist. No JVD. No carotid bruit. CHEST EXAMINATION: Lungs are clear to auscultation. No chest wall tenderness is noted on palpation or with deep breathing. HEART EXAMINATION: Regular rate and rhythm. S1, S2 heard. No murmurs, gallops or rub. ABDOMEN: Soft, nontender. Positive bowel sounds. EXTREMITIES: 2+ peripheral pulses, no lower extremity edema and no calf tenderness. NEUROLOGIC EXAMINATION: Patient is awake, alert and oriented x3. ASSESSMENT Chest pain and shortness of breath. Atypical for angina. History of anxiety with increasing frequency of anxiety attacks over the pr evious few months Chronic nicotine dependence PLAN Obtain serial cardiac enzymes to rule out an acute event. If enzymes are normal we will pursue stress echocardiogram in the morning. Patient should be nothing by mouth after midnight tonight. Echocardiogram has been requested and will be reviewed. Smoking cessation highly recommended Further recommendations to follow based upon clinical course. Thank you kindly for this consultation. Nurse Practitioner note has been reviewed, I agree with a documented findings and plan of care. Patient was seen and examined. Past Medical History Past Medical History: GERD/Reflux, Osteoarthritis (OA), Pneumonia, Rheumatoid Arthritis (RA) Additional Past Medical History / Comment(s): Chronic pain which affects her more in her neck and back, fluid in spine since cervical fusion, numbness and tingling bilateral hands, Sjorgren's, +CHARLA, possible lupus, past elevated LFT, bronchitis and pne yearly, AUDRA-does not tolerate CPap-wears oxygen at HS only History of Any Multi-Drug Resistant Organisms: None Reported Past Surgical History: Back Surgery, Breast Surgery, Section, Tonsillectomy, Tubal Ligation, Uterine Ablation Additional Past Surgical History / Comment(s): D&C, cervical fusion, L breast benign biopsy, colonoscopy. Past Anesthesia/Blood Transfusion Reactions: No Reported Reaction Past Psychological History: Anxiety, Depression, Panic Disorder Additional Psychological History / Comment(s): Pt resides with her mother in law and is her caregiver. She uses oxygen at night. She is independent. Smoking Status: Current every day smoker Past Alcohol Use History: Daily Additional Past Alcohol Use History / Comment(s): SMOKES 1/2 PPD, SMOKING SINCE 13 YRS OLD. Pt states she was a heavy drinker years ogo but has not drank anything in years. Past Drug Use History: None Reported - Past Family History Father Family Medical History: CVA/TIA Additional Family Medical History / Comment(s): Father from emphysema in his 60s. Mother Family Medical History: Hypertension Medications and Allergies Home Medications Medication Instructions Recorded Confirmed Type ARIPiprazole [Abilify] 15 mg PO HS 03/18/19 02/15/20 History ALPRAZolam [Xanax] 1 mg PO BID 02/15/20 02/15/20 History Albuterol Inhaler [Ventolin Hfa 1 - 2 puff INHALATION RT-Q4H PRN 02/15/20 02/15/20 History Inhaler] Propranolol HCl 80 mg PO BID 02/15/20 02/15/20 History Sertraline [Zoloft] 50 mg PO HS 02/15/20 02/15/20 History oxyCODONE-APAP 10-325MG [Percocet 1 tab PO TID 02/15/20 02/15/20 History 10-325 mg] Allergies Allergy/AdvReac Type Severity Reaction Status Date / Time cephalexin [From Keflex] Allergy Rash/Hives Verified 02/15/20 13:30 Physical Exam Vitals: Vital Signs Temp Pulse Resp BP Pulse Ox 02/15/20 11:52 98.3 F 74 16 127/59 94 L Intake and Output 02/14/20 02/15/20 02/15/20 22:59 06:59 14:59 Other: Weight 83.7 kg Results 02/15/20 12:45 02/15/20 12:45 Cardiac Enzymes 02/15/20 02/15/20 Range/Units 12:45 12:45 AST 21 (14-36) U/L Troponin I <0.012 (0.000-0.034) ng/mL CBC 02/15/20 Range/Units 12:45 WBC 8.5 (3.8-10.6) k/uL RBC 4.80 (3.80-5.40) m/uL Hgb 14.7 (11.4-16.0) gm/dL Hct 43.5 (34.0-46.0) % Plt Count 287 (150-450) k/uL Comprehensive Metabolic Panel 02/15/20 Range/Units 12:45 Sodium 135 L (137-145) mmol/L Potassium 4.3 (3.5-5.1) mmol/L Chloride 104 (98-107) mmol/L Carbon Dioxide 21 L (22-30) mmol/L BUN 14 (7-17) mg/dL Creatinine 0.65 (0.52-1.04) mg/dL Glucose 92 (74-99) mg/dL Calcium 9.9 (8.4-10.2) mg/dL AST 21 (14-36) U/L ALT 26 (4-34) U/L Alkaline Phosphatase 83 (38-126) U/L Total Protein 8.2 (6.3-8.2) g/dL Albumin 4.7 (3.5-5.0) g/dL Current Medications Generic Name Dose Route Start Last Admin Trade Name Freq PRN Reason Stop Dose Admin Albuterol/Ipratropium 3 ml 02/15/20 12:37 Duoneb 0.5 Mg-3 Mg/3 Ml Soln INHALATION RT-QID PRN Shortness Of Breath Or Wheezing Buspirone HCl 10 mg 02/15/20 13:45 02/15/20 14:24 Buspar PO 10 mg BID MINERVA Administration Sodium Chloride 1,000 mls @ 75 mls/hr 02/15/20 12:45 02/15/20 14:23 Saline 0.9% IV 75 mls/hr .[id number] MINERVA Administration Lorazepam 1 mg 02/15/20 12:43 02/15/20 12:56 Ativan IV 1 mg Q8HR PRN Administration Anxiety Melatonin 5 mg 02/15/20 21:00 Melatonin PO HS MINERVA Methylprednisolone Sodium Succinate 40 mg 02/15/20 16:00 Solu-Medrol IV Q8HR MINERVA Pantoprazole Sodium 40 mg 02/16/20 07:30 Protonix PO AC-BRKFST MINERVA Quetiapine Fumarate 25 mg 02/15/20 21:00 Seroquel PO HS MINERVA Sertraline HCl 150 mg 02/15/20 13:45 02/15/20 14:24 Zoloft PO 150 mg DAILY MINERVA Administration Intake and Output 02/14/20 02/15/20 02/15/20 22:59 06:59 14:59 Other: Weight 83.7 kg Patient Weight 02/16/20 06:59 Weight 83.7 kg 02/15/20 12:45 02/15/20 12:45
--- NOTE | 2020-02-15 15:24 | P.CNPUL ---
History of Present Illness Consult date: 02/15/20 Reason for consult: dyspnea, chest pain, COPD Chief complaint: Acute onset of shortness of breath in doctor's office History of present illness: This is a 44-year-old female with prior medical history of generalized pert aining to her medications, denies any chest pain feels almost back to baseline disorder history of chronic asthma also have sleep disorder breathing and sleep apnea couldn't tolerate CPAP machine has been started on oxygen at nighttime, patient had episode of shortness of breath in doctor's office now she is comfortable denies any shortness of breath chest pain or cough, she denies any fever, review of the data revealed that her x-ray suggestive of some bronchitis due to peribronchial cuffing labs were normal including d-dimer, cardiac enzymes were normal as well, cardiovascular services following, previous echocardiogram revealed ejection fraction 60% Review of Systems All systems: negative Past Medical History Past Medical History: GERD/Reflux, Osteoarthritis (OA), Pneumonia, Rheumatoid Arthritis (RA) Additional Past Medical History / Comment(s): Chronic pain which affects her mor e in her neck and back, fluid in spine since cervical fusion, numbness and tingling bilateral hands, Sjorgren's, +CHARLA, possible lupus, past elevated LFT, bronchitis and pne yearly, AUDRA-does not tolerate CPap-wears oxygen at HS only History of Any Multi-Drug Resistant Organisms: None Reported Past Surgical History: Back Surgery, Breast Surgery, Section, Tonsillectomy, Tubal Ligation, Uterine Ablation Additional Past Surgical History / Comment(s): D&C, cervical fusion, L breast benign biopsy, colonoscopy. Past Anesthesia/Blood Transfusion Reactions: No Reported Reaction Past Psychological History: Anxiety, Depression, Panic Disorder Additional Psychological History / Comment(s): Pt resides with her mother in law and is her caregiver. She uses oxygen at night. She is independent. Smoking Status: Current every day smoker Past Alcohol Use History: Daily Additional Past Alcohol Use History / Comment(s): SMOKES 1/2 PPD, SMOKING SINCE 13 YRS OLD. Pt states she was a heavy drinker years ogo but has not drank anything in years. Past Drug Use History: None Reported - Past Family History Father Family Medical History: CVA/TIA Additional Family Medical History / Comment(s): Father from emphysema in his 60s. Mother Family Medical History: Hypertension Medications and Allergies Home Medications Medication Instructions Recorded Confirmed Type ARIPiprazole [Abilify] 15 mg PO HS 03/18/19 02/15/20 History ALPRAZolam [Xanax] 1 mg PO BID 02/15/20 02/15/20 History Albuterol Inhaler [Ventolin Hfa 1 - 2 puff INHALATION RT-Q4H PRN 02/15/20 02/15/20 History Inhaler] Propranolol HCl 80 mg PO BID 02/15/20 02/15/20 History Sertraline [Zoloft] 50 mg PO HS 02/15/20 02/15/20 History oxyCODONE-APAP 10-325MG [Percocet 1 tab PO TID 02/15/20 02/15/20 History 10-325 mg] Allergies Allergy/AdvReac Type Severity Reaction Status Date / Time cephalexin [From Keflex] Allergy Rash/Hives Verified 02/15/20 13:30 Physical Exam Vitals: Vital Signs Temp Pulse Resp BP Pulse Ox 02/15/20 11:52 98.3 F 74 16 127/59 94 L Intake and Output 02/15/20 02/15/20 02/15/20 06:59 14:59 22:59 Other: Weight 83.7 kg - Constitutional General appearance: average body habitus, cooperative, no acute distress - EENT Eyes: EOMI, PERRLA, dentition normal ENT: normal oropharynx Ears: bilateral: normal - Neck Neck: normal ROM Carotids: bilateral: upstroke normal, bruit absent Thyroid: bilateral: normal size - Respiratory Respiratory: bilateral: CTA - Cardiovascular Rhythm: regular Heart sounds: normal: S1, S2 - Gastrointestinal General gastrointestinal: normal bowel sounds - Integumentary Integumentary: normal turgor - Neurologic Neurologic: CNII-XII intact - Musculoskeletal Musculoskeletal: gait normal, generalized weakness, strength equal bilaterally - Psychiatric Psychiatric: A&O x's 3, appropriate affect, intact judgment & insight Results - Laboratory Findings CBC and BMP: 02/15/20 12:45 02/15/20 12:45 PT/INR, D-dimer D-Dimer 0.30 mg/L FEU (<0.60) 02/15/20 12:45 Abnormal lab findings: Abnormal Labs 02/15/20 12:45 Sodium 135 L Carbon Dioxide 21 L - Diagnostic Findings Chest x-ray: report reviewed, image reviewed (Finding as noted above) Assessment and Plan Assessment: Acute COPD exacerbation Obstructive sleep apnea Generalized anxiety disorder Chronic insomnia Atypical chest pain Smoking and nicotine use Plan: Agree with bronchodilator Steroids can be tapered to Medrol Dosepak and taper as tolerated Patient may benefit from oral appliance on outpatient basis Need further evaluation for COPD on outpatient basis Would recommend reassessment in 4-6 weeks Time with Patient: Greater than 30
[2020-02-15] MEDS: IPRATROPIUM-ALBUTEROL 3 ML NEB INHALATION PRN ×2 (15:32→19:34)
[2020-02-15] MEDS: LORazepam 2 MG/ML INJ IV PRN ×2 (16:54→20:38)
[2020-02-15] MEDS: methylPREDNISolone SOD SUCCI 40 MG/ML 1 ML VIAL IV SCH ×2 (16:55→23:35)
[2020-02-15] MEDS: oxyCODONE-APAP 10-325MG 1 EACH TAB PO PRN (20:38)
[2020-02-15] MEDS ORDERED: ARIPiprazole 15 MG TAB PO SCH (21:00)
[2020-02-15] MEDS ORDERED: MELATONIN 5 MG TABLET PO SCH (21:00)
[2020-02-15] MEDS ORDERED: SERTRALINE 100 MG TAB PO SCH (21:00)
[2020-02-15] MEDS ORDERED: QUEtiapine 25 MG TAB PO SCH (21:00)
[2020-02-16] MEDS: SODIUM CHLORIDE 0.9% 1,000 ML IV SCH ×2 (03:14→15:02)
[2020-02-16] MEDS: LORazepam 2 MG/ML INJ IV PRN ×3 (05:49→14:57)
[2020-02-16] MEDS ORDERED: PANTOPRAZOLE 40 MG TABLET PO SCH (07:30)
[2020-02-16 08:04] LABS: Basophils % (A) 0 %; Eosinophils % (A) 0 %; HCT 39.7 % (34.0-46.0); Lymphocytes # (A) 1.6 k/uL (1.0-4.8); Lymphocytes % (A) 24 %; MCH 30.6 pg (25.0-35.0); MCHC 32.8 g/dL (31.0-37.0); MCV 93.5 fL (80.0-100.0); Mean Platelet Volume 8.1; Monocytes # (A) 0.4 k/uL (0-1.0); Monocytes % (A) 5 %; Neutrophils # (A) 4.5 k/uL (1.3-7.7); Neutrophils % (A) 68 %; Platelet Count 231 k/uL (150-450); RBC 4.24 m/uL (3.80-5.40); RDW 13.2 % (11.5-15.5); WBC 6.7 k/uL (3.8-10.6)
[2020-02-16] MEDS: IPRATROPIUM-ALBUTEROL 3 ML NEB INHALATION PRN ×2 (08:13→16:15)
[2020-02-16 08:19] LABS: ALT 19 U/L (4-34); AST 14 U/L (14-36); African American GFR (CKD) >90 (>60 ml/min/1.73 sqM); Albumin 3.6 g/dL (3.5-5.0); Alkaline Phosphatase 64 U/L (38-126); Anion Gap 6 mmol/L; Blood Urea Nitrogen 14 mg/dL (7-17); Calcium 8.8 mg/dL (8.4-10.2); Carbon Dioxide 23 mmol/L (22-30); Chloride 109 mmol/L (98-107); Glucose 122 mg/dL (74-99); Non-African American GFR(CKD) >90 (>60 ml/min/1.73 sqM); Potassium 4.2 mmol/L (3.5-5.1); Sodium 138 mmol/L (137-145); Total Bilirubin 0.2 mg/dL (0.2-1.3); Total Protein 6.8 g/dL (6.3-8.2)
--- NOTE | 2020-02-16 08:30 | ECHOF ---
Referral Reason:dyspnea MEASUREMENTS -------- HEIGHT: 162.6 cm WEIGHT: 83.5 kg BP: RVIDd: 2.2 cm (< 3.3) IVSd: 1.3 cm (0.6 - 1.1) LVIDd: 4.2 cm (3.9 - 5.3) LVPWd: 1.2 cm (0.6 - 1.1) IVSs: 1.8 cm LVIDs: 2.9 cm LVPWs: 1.8 cm LAESV Index (A-L): 14.66 ml/m Ao Diam: 3.0 cm (2.0 - 3.7) AV Cusp: 2.0 cm (1.5 - 2.6) LA Diam: 3.0 cm (2.7 - 3.8) MV EXCURSION: 15.618 mm (> 18.000) MV EF SLOPE: 126 mm/s (70 - 150) EPSS: 0.7 cm MV E Jayce: 0.76 m/s MV DecT: 194 ms MV A Jayce: 0.41 m/s MV E/A Ratio: 1.85 RAP: 5.00 mmHg RVSP: 9.94 mmHg FINDINGS -------- Sinus rhythm. This was a technically adequate study. The left ventricular size is normal. There is mild concentric left ventricular hypertrophy. Overa ll left ventricular systolic function is normal with, an EF between 55 - 60 %. The diastolic fillin g pattern is normal for the age of the patient 8.71. The right ventricle is normal in size. Normal LA size by volume 22+/-6 ml/m2. The right atrial size is normal. The aortic valve is trileaflet, and appears structurally normal. No aortic stenosis or regurgitation. The mitral valve is normal. There is trace to mild mitral regurgitation. The tricuspid valve appears structurally normal. Mild tricuspid regurgitation present. Right vent ricular systolic pressure is normal at < 35 mmHg. There is no pulmonic regurgitation present. The aortic root size is normal. Normal inferior vena cava with normal inspiratory collapse consistent with estimated right atrial pre ssure of 5 mmHg. There is a trivial pericardial effusion present. CONCLUSIONS -------- 1. There is mild concentric left ventricular hypertrophy. 2. Overall left ventricular systolic function is normal with, an EF between 55 - 60 %. 3. The diastolic filling pattern is normal for the age of the patient 8.71 4. Normal LA size by volume 22+/-6 ml/m2. 5. The aortic valve is trileaflet, and appears structurally normal. No aortic stenosis or regurgitati on. 6. There is trace to mild mitral regurgitation. 7. Mild tricuspid regurgitation present. 8. Right ventricular systolic pressure is normal at < 35 mmHg. 9. There is a trivial pericardial effusion present. ESCROW OFFICER: Desiree Rose RDCS
[2020-02-16] MEDS: SERTRALINE 100 MG TAB PO SCH (09:32)
[2020-02-16] MEDS: busPIRone HCl 10 MG TAB PO SCH (09:32)
[2020-02-16] MEDS: methylPREDNISolone SOD SUCCI 40 MG/ML 1 ML VIAL IV SCH ×2 (09:32→14:57)
--- NOTE | 2020-02-16 09:45 | ECHOS ---
STRESS ECHOCARDIOGRAM INDICATIONS: Chest pain, shortness of breath. MEDICATIONS: BASELINE HEART RATE: 73 BASELINE BLOOD PRESSURE: 132/80 MAXIMUM HEART RATE: 152 MAXIMUM BLOOD PRESSURE: 173/55 85% MPHR: 150 100% MPHR: 177 METS: 10.5 MAXIMUM STAGE REACHED: III TOTAL EXERCISE TIME: 8 minutes CLINICAL INFORMATION: Baseline rhythm is a sinus mechanism, rate of 73, normal axis and intervals, minor nonspecific ST-T wave changes. Baseline blood pressure 132/80 mmHg. Patient exercised on Gato protocol for 8 minute reaching peak rate 152 beats per minute which is equal to 86% maximum predicted heart rate. Peak blood pressure 173/55 mmHg. Test was terminated secondary to fatigue. There was no chest pain. Electrocardiograph monitoring revealed no evidence of diagnostic ischemic ST deviation. Baseline echocardiogram revealed normal wall motion. At peak exercise, there was normal wall motion augmentation with no hypokinesis or dyskinesis. CONCLUSION: 1. Average exercise tolerance with normal electrocardiograph response to exercise. 2. Normal stress echocardiogram with no evidence of stress induced ischemia. MMODL / IJN: [id number] /
--- NOTE | 2020-02-16 11:28 | P.PN ---
Subjective HISTORY OF PRESENTING ILLNESS This is a pleasant 44-year-old female past medical history significant for anxiety, arthritis and chronic nicotine dependence. She denies prior history of coronary artery disease and does not follow in the office with a programs director. She is seen and examined resting comfortably sitting up in bed in no acute distress. She states earlier this morning she woke up and had another panic attack. She is currently chest pain-free with no shortness of breath, dizziness or palpitations. Stress echocardiogram performed this morning, she exercised on the treadmill for 8 minutes reaching a peak rate of 152 bpm which is equal to 86% of maximum predicted heart rate with no evidence of stress- induced ischemia or echocardiographic wall motion abnormality. Echocardiogram obtained reveals preserved LV systolic function with ejection fraction 55-60%, normal diastolic filling pattern, mild TR and trivial pericardial effusion. Blood pressure 114/54 heart rate 88 afebrile maintaining oxygen saturation on room air. Laboratory data reviewed, cardiac enzymes negative 3, NT proBNP 118, sodium 138, potassium 4.2 and creatinine 0.72. PHYSICAL EXAMINATION CONSTITUTIONAL: No apparent distress. HEENT: Head is normocephalic. Pupils are equal, round. Sclerae anicteric. Mucous membranes of the mouth are moist. No JVD. No carotid bruit. CHEST EXAMINATION: Lungs are clear to auscultation. No chest wall tenderness is noted on palpation or with deep breathing. HEART EXAMINATION: Regular rate and rhythm. S1, S2 heard. No murmurs, gallops or rub. EXTREMITIES: 2+ peripheral pulses, no lower extremity edema and no calf tenderness. ASSESSMENT Chest pain and shortness of breath. Atypical for angina. History of anxiety with increasing frequency of anxiety attacks over the previous few months Chronic nicotine dependence PLAN An acute coronary event has been ruled out. There is no evidence to suggest any underlying coronary artery disease as the culprit for her symptoms. Ongoing medical management and evaluation. Follow-up in the office with Dr. Flores in 3-4 weeks. Nurse Practitioner note has been reviewed, I agree with a documented findings and plan of care. Patient was seen and examined. Objective - Vital Signs Vital signs: Vital Signs Temp 98.4 F 02/16/20 05:00 Pulse 88 02/16/20 08:24 Resp 16 02/16/20 08:00 BP 114/54 02/16/20 05:00 Pulse Ox 92 L 02/16/20 05:00 Intake & Output 02/15/20 02/16/20 02/16/20 18:59 06:59 18:59 Intake Total 1640 1670 Balance 1640 1670 Weight 83.7 kg 83.7 kg Intake: Intake, IV Titration 300 600 Amount Sodium Chloride 0.9% 1, 300 600 000 ml @ 75 mls/hr IV . [id number] MINERVA Rx#:[id number] Oral 1340 1070 Other: Voiding Method Toilet Toilet Toilet # Voids 2 1 - Labs CBC & Chem 7: 02/16/20 07:09 02/16/20 07:09 Labs: Abnormal Lab Results - Last 24 Hours (Table) 02/15/20 02/16/20 Range/Units 12:45 07:09 Sodium 135 L (137-145) mmol/L Chloride 109 H (98-107) mmol/L Carbon Dioxide 21 L (22-30) mmol/L Glucose 122 H (74-99) mg/dL
[2020-02-16] MEDS: oxyCODONE-APAP 10-325MG 1 EACH TAB PO PRN (11:40)
--- NOTE | 2020-02-16 11:46 | P.PN ---
Progress Note - Text Progress Note Date: 02/16/20 Psychiatric progress note: Interval History: Patient was seen today for psychiatric follow-up on the medical floors for anxiety. As per nurse taking care of patient states that she did not have any complaints for the patient and that she was doing better. Patient was seen at the bedside and was agreeable to speak a check writer. Patient appeared to not be anxious and appeared to be calm during conversation. Patient states that she only slept 3 hours last night and states that she had a panic attack last night and also this morning. She states that she has not felt much improvement with the medication and claims that she feels "about the same". Patient admitted to taking her medications as prescribed. She also claimed that she was confused last night and does not know what happened. She states that she was wandering in the hallways. At this time patient denies any suicidal or homical ideations, intent or plan. Patient denies any auditory, visual hallucinations and denies any paranoia or delusions. Mental Status Exam: General Appearance: Patient appears to be stated age is alert, directable and attempts to be cooperative. Patient appears to have fair hygiene and grooming wearing hospital gown with fair eye contact. Behavior: Patient is calmly lying in bed without any agitated behavior. Attempts to cooperate. Speech: Patient's speech is fluent and nonpressured. Mood/Affect: Patient reports their mood is "the same", affect is congruent and constricted. Suicidality/Homicidality: Patient denies having any suicidal or homicidal ideation intent or plan. Perceptions: Patient denies any visual hallucinations and denies any auditory hallucinations Though content/process: There is no evidence of any delusional thought content and thought process is linear and goal-directed. Pfeifer. Less preoccupied with her anxiety. Memory and concentration: AOX3, grossly intact for the purposes of this session. Can spell "WORLD" backwards Judgment and insight: Fair Assessment Panic disorder with Agoraphobia. Depressive disorder unspecified. Plan: -At this time patient DOES NOT meet criteria for inpatient psychiatric admission. -Would recommend the following medication changes/additions: Increased Zoloft to 200 mg daily for mood/anxiety. Increased Seroquel 50 mg daily at bedtime for anxiety/insomnia/mood. Continue with melatonin 5 mg daily at bedtime for sleep. BuSpar increased 20 mg twice a day for anxiety. Will hold off on Xanax at this time. -Will continue to follow along -Please contact with any questions.
[2020-02-16 12:16] VITALS: BP 104/63; TEMP 98.2
[2020-02-16 13:52] LABS: T4, Free (Free Thyroxine) 1.1 ng/dL (0.78-2.19)
--- NOTE | 2020-02-16 15:14 | HP ---
HISTORY AND PHYSICAL Chest pain, shortness of breath. Failed outpatient treatment for her breathing. She also complains of severe panic attacks and chest pain, unclear etiology. She has severe breathing issues. She continues to smoke, have mood swings. She has sleep apnea could not tolerate the CPAP machine. No fever, chills. No COVID exposure. No fevers. She had a D-dimer and Cardiology and Pulmonary consult. She had a echo which showed 60%. 14 POINT REVIEW OF SYSTEMS: As mentioned above. PAST HISTORY: GERD, osteoarthritis, rheumatoid arthritis, chronic pain, Sjogren's, lupus, sleep apnea, does not wear a CPAP. SURGERIES: Back surgery, D and C, cervical fusion, breast biopsy, colonoscopies. SOCIAL HISTORY: Current everyday smoker. FAMILY HISTORY: Father TIA. Mother hypertension. MEDICATIONS: At home, see list. Vital signs are reviewed. Saturating in low 90s on room air, pulse 74, respiratory 16- 20, temperature 98.3. HEENT: Normocephalic, atraumatic. Pupils equal, round, reactive. LUNGS: Show scattered rhonchi and wheeze. HEMATOLOGY: Negative Homans. PSYCH: She is sitting there with pursed lip breathing, breathing real deep. She says she is going to because she has severe stress and anxiety, panic attack. She wakes up short of breath. Gasping at night. She says also D-dimer is negative. ASSESSMENT: 1. Chronic obstructive pulmonary disease exacerbation. 2. Chronic insomnia, obstructive sleep apnea. 3. Atypical chest pain. 4. Nicotine addiction. She is scheduled for stress test. Pulmonary to see if they clear her and Psych clears for panic attacks and bipolar anxiety, she should be able to discharge after this. MMODL / IJN: [id number] /
[2020-02-16 15:23] LABS: Appearance,Urine Clear (Clear); Bilirubin,Urine Negative (Negative); Blood,Urine Negative (Negative); Color,Urine Yellow; Glucose,Urine (UA) Negative (Negative); Ketones,Urine Negative (Negative); Leukocyte Esterase,Urine Negative (Negative); Nitrite,Urine Negative (Negative); Protein,Urine Negative (Negative); Specific Gravity,Urine 1.026 (1.001-1.035); Urobilinogen,Urine <2.0 mg/dL (<2.0)
[2020-02-16 16:17] VITALS: PULSE 83; RESP 16
--- NOTE | 2020-02-16 16:35 | P.DS ---
Providers Date of admission: 02/15/20 11:42 Expected date of discharge: 02/16/20 Attending physician: Florencio Langford Consults: 02/15/20 12:37 Consult Physician Routine Consulting Provider: Jose Tesfaye Consult Reason/Comments: dyspnea Do you want consulting provider notified?: Yes 02/15/20 12:38 Consult Physician Routine Consulting Provider: Yohannes Yun Consult Reason/Comments: anxiety/panic attacks Do you want consulting provider notified?: Yes 02/15/20 12:40 Consult Physician Routine Consulting Provider: Jony Mcguire Consult Reason/Comments: dyspnea Do you want consulting provider notified?: Yes Primary care physician: [facility] Course: Final Diagnoses: Acute COPD exacerbation Atypical chest pain, acute coronary syndrome ruled out Chronic insomnia, obstructive sleep apnea Nicotine addiction Anxiety, panic attacks Depression Hospital course: This a 44-year-old female admitted with acute COPD exacerbation, midsternal chest pressure, panic attacks and multiple other medical issues. Evaluated by cardiology and psychiatry. Underwent stress test verbally reported as negative. Maintained on nebulized bronchodilators, IV steroids. Significant clinical improvement. Patient will be discharged home today in a stable condition with guarded prognosis. EXAM: GENERAL: Alert and oriented 3, no acute distress. CHEST: Lungs are clear to auscultation. HEART : Regular rate and rhythm. S1, S2 heard. No murmurs, gallops or rub. Neuro: No focal deficit The impression and plan of care has been dictated as directed. : I performed a history and examination of this patient, discussed the same with the dictator. I agree with the dictator's note ,documented as a scribe. Any additional findings or plans will be noted. Patient Condition at Discharge: Stable Plan - Discharge Summary Discharge Rx Participant: No New Discharge Prescriptions: New Melatonin 5 mg PO HS #30 tablet Pantoprazole [Protonix] 40 mg PO AC-BRKFST #30 tablet. QUEtiapine [SEROquel] 50 mg PO HS #30 tab Sertraline [Zoloft] 200 mg PO DAILY #60 tab Continue oxyCODONE-APAP 10-325MG [Percocet 10-325 mg] 1 tab PO TID Propranolol HCl 80 mg PO BID Albuterol Inhaler [Ventolin Hfa Inhaler] 1 - 2 puff INHALATION RT-Q4H PRN PRN Reason: Shortness Of Breath Changed ALPRAZolam [Xanax] 1 mg PO TID #0 Discontinued ARIPiprazole [Abilify] 15 mg PO HS Sertraline [Zoloft] 50 mg PO HS Discharge Medication List Albuterol Inhaler [Ventolin Hfa Inhaler] 1 - 2 puff INHALATION RT-Q4H PRN 02/15/20 [History] Propranolol HCl 80 mg PO BID 02/15/20 [History] oxyCODONE-APAP 10-325MG [Percocet 10-325 mg] 1 tab PO TID 02/15/20 [History] ALPRAZolam [Xanax] 1 mg PO TID #0 02/16/20 [Rx] Melatonin 5 mg PO HS #30 tablet 02/16/20 [Rx] Pantoprazole [Protonix] 40 mg PO AC-BRKFST #30 tablet. 02/16/20 [Rx] QUEtiapine [SEROquel] 50 mg PO HS #30 tab 02/16/20 [Rx] Sertraline [Zoloft] 200 mg PO DAILY #60 tab 02/16/20 [Rx] Follow up Appointment(s)/Referral(s): Jason Flores MD [STAFF PHYSICIAN] - 03/15/20 2:30 pm (patient shall bring in drivers license,insurance card and list of medications) Florencio Langford MD [Primary Care Provider] - 3 Days Jose Tesfaye MD [STAFF PHYSICIAN] - 2 Weeks Activity/Diet/Wound Care/Special Instructions: Patient declining Moustapha
[2020-02-16] MEDS ORDERED: QUEtiapine 50 MG TAB PO SCH (21:00)
[2020-02-16] MEDS ORDERED: busPIRone HCl 10 MG TAB PO SCH (21:00)
[2020-02-17] MEDS ORDERED: SERTRALINE 100 MG TAB PO SCH (09:00)
== END 2020-02-16 16:54 | disposition home or self-care (01) ==
LOC: 5NMEDONC 11:42 → INTOOBSV 11:42 → UNDODISIN 02-16 16:54
PROVIDERS: ADMIT Family Medicine; ATTEND Family Medicine
DX: J44.1 Chronic obstructive pulmonary disease with (acute) exacerbation (principal); R07.89 Other chest pain; F40.01 Agoraphobia with panic disorder; F41.1 Generalized anxiety disorder; F51.04 Psychophysiologic insomnia; F17.210 Nicotine dependence, cigarettes, uncomplicated; G89.29 Other chronic pain; M54.2 Cervicalgia; K21.9 Gastro-esophageal reflux disease without esophagitis; M06.9 Rheumatoid arthritis, unspecified; G47.33 Obstructive sleep apnea (adult) (pediatric); M19.90 Unspecified osteoarthritis, unspecified site; M35.00 Sjogren syndrome, unspecified; Z82.49 Family history of ischemic heart disease and other diseases of the circulatory system; Z82.5 Family history of asthma and other chronic lower respiratory diseases; Z88.1 Allergy status to other antibiotic agents; F32.9 Major depressive disorder, single episode, unspecified; Z82.3 Family history of stroke; Z98.1 Arthrodesis status; Z99.81 Dependence on supplemental oxygen; Z79.899 Other long term (current) drug therapy; Z79.891 Long term (current) use of opiate analgesic; M32.9 Systemic lupus erythematosus, unspecified
CPT/HCPCS: 96376 ×2; 96361; 96374; 94640 ×4; 93306; 93005; 93351; 85379; 84439; 83880; 80053 ×2; 84443; 84484 ×2; 85025 ×2; 81003; 71046; G0379; G0378 ×2; J2060 ×2; J2920 ×2

== ENCOUNTER 2020-02-24 20:15 | Emergency (ER) | payer OTHER ==
[2020-02-24 20:21] VITALS: TEMP 98.4
--- NOTE | 2020-02-24 20:43 | ED ---
General Adult HPI - General Chief complaint: Anxiety Stated complaint: Chest Pain Time Seen by Provider: 02/24/20 20:22 Source: patient, RN notes reviewed Mode of arrival: wheelchair Limitations: no limitations - History of Present Illness Initial comments: 44-year-old female presents to the emergency department for a chief complaint of left chest pain. Patient states that she has had a left chest pain on and off for the past week. States it is sharp in nature. Denies any worsening with deep breathing. Denies any chest pressure. Patient states that she was admitted 1 week ago for these exact symptoms where she had a negative stress echo and was to follow-up with a surgical assistant. She was also seen by psychiatry at that time and increased on her anxiety medications. Patient states the pain went away for a couple days but it started again 2 days ago. States it is making her very anxious. Patient has no other complaints at this time including shortness of breath, abdominal pain, nausea or vomiting, headache, or visual changes. - Related Data Home Medications Medication Instructions Recorded Confirmed Albuterol Inhaler [Ventolin Hfa 1 - 2 puff INHALATION RT-Q4H PRN 02/15/20 02/15/20 Inhaler] Propranolol HCl 80 mg PO BID 02/15/20 02/15/20 oxyCODONE-APAP 10-325MG [Percocet 1 tab PO TID 02/15/20 02/15/20 10-325 mg] Previous Rx's Medication Instructions Recorded ALPRAZolam [Xanax] 1 mg PO TID #0 02/16/20 Melatonin 5 mg PO HS #30 tablet 02/16/20 Pantoprazole [Protonix] 40 mg PO AC-BRKFST #30 tablet.dr 02/16/20 QUEtiapine [SEROquel] 50 mg PO HS #30 tab 02/16/20 Sertraline [Zoloft] 200 mg PO DAILY #60 tab 02/16/20 Allergies Allergy/AdvReac Type Severity Reaction Status Date / Time cephalexin [From Keflex] Allergy Rash/Hives Verified 02/24/20 20:21 Review of Systems ROS Statement: Those systems with pertinent positive or pertinent negative responses have been documented in the HPI. ROS Other: All systems not noted in ROS Statement are negative. Past Medical History Past Medical History: GERD/Reflux, Osteoarthritis (OA), Pneumonia, Rheumatoid Arthritis (RA) Additional Past Medical History / Comment(s): Chronic pain which affects her more in her neck and back, fluid in spine since cervical fusion, numbness and tingling bilateral hands, Sjorgren's, +CHARLA, possible lupus, past elevated LFT, bronchitis and pne yearly, AUDRA-does not tolerate CPap-wears oxygen at HS only History of Any Multi-Drug Resistant Organisms: None Reported Past Surgical History: Back Surgery, Breast Surgery, Section, Tonsillectomy, Tubal Ligation, Uterine Ablation Additional Past Surgical History / Comment(s): D&C, cervical fusion, L breast benign biopsy, colonoscopy. Past Anesthesia/Blood Transfusion Reactions: No Reported Reaction Past Psychological History: Anxiety, Depression, Panic Disorder Smoking Status: Current every day smoker Past Alcohol Use History: Daily Past Drug Use History: None Reported - Past Family History Father Family Medical History: CVA/TIA Additional Family Medical History / Comment(s): Father from emphysema in his 60s. Mother Family Medical History: Hypertension General Exam Limitations: no limitations General appearance: alert, in no apparent distress Head exam: Present: atraumatic, normocephalic, normal inspection Eye exam: Present: normal appearance, PERRL, EOMI. Absent: scleral icterus, conjunctival injection, periorbital swelling ENT exam: Present: normal exam, mucous membranes moist Neck exam: Present: normal inspection, full ROM. Absent: tenderness, meningismus, lymphadenopathy Respiratory exam: Present: normal lung sounds bilaterally. Absent: respiratory distress, wheezes, rales, rhonchi, stridor Cardiovascular Exam: Present: regular rate, normal rhythm, normal heart sounds. Absent: systolic murmur, diastolic murmur, rubs, gallop, clicks GI/Abdominal exam: Present: soft, normal bowel sounds. Absent: distended, tenderness, guarding, rebound, rigid Extremities exam: Present: other (Radial pulses 2+ and equal bilaterally. DP pulses 2+ and equal bilaterally sensation is intact.) Back exam: Absent: CVA tenderness (R), CVA tenderness (L) Neurological exam: Present: alert Course Vital Signs 02/24/20 02/24/20 02/24/20 20:16 21:50 22:00 Temperature 98.4 F Pulse Rate 90 73 71 Respiratory 18 18 16 Rate Blood Pressure 124/82 113/47 113/63 O2 Sat by Pulse 99 97 99 Oximetry 02/24/20 23:00 Temperature Pulse Rate 72 Respiratory 18 Rate Blood Pressure 106/75 O2 Sat by Pulse 97 Oximetry EKG Findings - EKG Comments: EKG Findings:: Normal sinus rhythm, ventricular rate 79, DC interval 158, QTC 410 Medical Decision Making - Medical Decision Making Patient was evaluated for similar symptoms one week ago. Patient had an echocardiogram which showed ejection fraction between 55-60%. Patient had a stress echo that showed average exercise tolerance with normal electrocardi ographic response to exercise . No evidence of stress-induced ischemia. Patient did have her Zoloft increased as well as her Seroquel and BuSpar. Vitals are stable here in the emergency department. Patient is resting comfortably. CBC is unremarkable. CMP is within normal limits. Troponin is n egative. D-dimer 0.29. EKG was obtained which showed a normal sinus rhythm. There is a T-wave inversion in lead III which is consistent with EKG from February 14. As mentioned patient states she had the exact symptoms a week ago and had a negative stress echo here in the hospital. Symptoms are atypical, described as sharp and left sided. HEART score of 2-3. At this time given recent thorough cardiac workup and negative ER cardiac evaluation patient will be discharged home to follow up with cardiology. I did discuss that if her symptoms worsen she should certainly return here to the emergency department. Otherwise she is to follow-up as directed. Case discussed and EKG reviewed with Dr Church - Lab Data Result diagrams: 02/24/20 20:38 02/24/20 20:38 Lab Results 02/24/20 02/24/20 02/24/20 Range/Units 20:38 20:38 20:38 WBC 9.4 (3.8-10.6) k/uL RBC 4.80 (3.80-5.40) m/uL Hgb 14.9 (11.4-16.0) gm/dL Hct 44.3 (34.0-46.0) % MCV 92.2 (80.0-100.0) fL MCH 31.1 (25.0-35.0) pg MCHC 33.7 (31.0-37.0) g/dL RDW 13.2 (11.5-15.5) % Plt Count 246 (150-450) k/uL Neutrophils % 61 % Lymphocytes % 28 % Monocytes % 7 % Eosinophils % 2 % Basophils % 0 % Neutrophils # 5.7 (1.3-7.7) k/uL Lymphocytes # 2.6 (1.0-4.8) k/uL Monocytes # 0.7 (0-1.0) k/uL Eosinophils # 0.2 (0-0.7) k/uL Basophils # 0.0 (0-0.2) k/uL PT 9.9 (9.0-12.0) sec INR 0.9 (<1.2) APTT 23.7 (22.0-30.0) sec D-Dimer (<0.60) mg/L FEU Sodium 136 L (137-145) mmol/L Potassium 4.2 (3.5-5.1) mmol/L Chloride 104 (98-107) mmol/L Carbon Dioxide 23 (22-30) mmol/L Anion Gap 9 mmol/L BUN 18 H (7-17) mg/dL Creatinine 0.72 (0.52-1.04) mg/dL Est GFR (CKD-EPI)AfAm >90 (>60 ml/min/1.73 sqM) Est GFR (CKD-EPI)NonAf >90 (>60 ml/min/1.73 sqM) Glucose 103 H (74-99) mg/dL Calcium 9.8 (8.4-10.2) mg/dL Magnesium 1.9 (1.6-2.3) mg/dL Total Bilirubin 0.3 (0.2-1.3) mg/dL AST 18 (14-36) U/L ALT 16 (4-34) U/L Alkaline Phosphatase 84 (38-126) U/L Troponin I (0.000-0.034) ng/mL Total Protein 8.0 (6.3-8.2) g/dL Albumin 4.5 (3.5-5.0) g/dL Amylase 46 (30-110) U/L Lipase 166 (23-300) U/L 02/24/20 02/24/20 Range/Units 20:38 20:38 WBC (3.8-10.6) k/uL RBC (3.80-5.40) m/uL Hgb (11.4-16.0) gm/dL Hct (34.0-46.0) % MCV (80.0-100.0) fL MCH (25.0-35.0) pg MCHC (31.0-37.0) g/dL RDW (11.5-15.5) % Plt Count (150-450) k/uL Neutrophils % % Lymphocytes % % Monocytes % % Eosinophils % % Basophils % % Neutrophils # (1.3-7.7) k/uL Lymphocytes # (1.0-4.8) k/uL Monocytes # (0-1.0) k/uL Eosinophils # (0-0.7) k/uL Basophils # (0-0.2) k/uL PT (9.0-12.0) sec INR (<1.2) APTT (22.0-30.0) sec D-Dimer 0.29 (<0.60) mg/L FEU Sodium (137-145) mmol/L Potassium (3.5-5.1) mmol/L Chloride (98-107) mmol/L Carbon Dioxide (22-30) mmol/L Anion Gap mmol/L BUN (7-17) mg/dL Creatinine (0.52-1.04) mg/dL Est GFR (CKD-EPI)AfAm (>60 ml/min/1.73 sqM) Est GFR (CKD-EPI)NonAf (>60 ml/min/1.73 sqM) Glucose (74-99) mg/dL Calcium (8.4-10.2) mg/dL Magnesium (1.6-2.3) mg/dL Total Bilirubin (0.2-1.3) mg/dL AST (14-36) U/L ALT (4-34) U/L Alkaline Phosphatase (38-126) U/L Troponin I <0.012 (0.000-0.034) ng/mL Total Protein (6.3-8.2) g/dL Albumin (3.5-5.0) g/dL Amylase (30-110) U/L Lipase (23-300) U/L Disposition Clinical Impression: Atypical chest pain Disposition: HOME SELF-CARE Condition: Good Instructions (If sedation given, give patient instructions): Chest Pain (ED) Additional Instructions: Please follow up with cardiology and primary care in one to 2 days. If you start to have any worsening symptoms make sure to return to the emergency department. Is patient prescribed a controlled substance at d/c from ED?: No Referrals: Florencio Langford MD [Primary Care Provider] - 1-2 days Jony Mcguire MD [STAFF PHYSICIAN] - 1-2 days Time of Disposition: 23:26
[2020-02-24] MEDS ORDERED: SODIUM CHLORIDE 0.9% 500 ML 500 ML IV STA (20:59)
[2020-02-24] MEDS ORDERED: ASPIRIN 81 MG PO STA (20:59)
[2020-02-24] MEDS ORDERED: LORazepam 2 MG/ML INJ IV STA (21:00)
[2020-02-24 21:12] LABS: Basophils % (A) 0 %; Eosinophils # (A) 0.2 k/uL (0-0.7); Eosinophils % (A) 2 %; HCT 44.3 % (34.0-46.0); HGB 14.9 gm/dL (11.4-16.0); Lymphocytes # (A) 2.6 k/uL (1.0-4.8); Lymphocytes % (A) 28 %; MCH 31.1 pg (25.0-35.0); MCHC 33.7 g/dL (31.0-37.0); MCV 92.2 fL (80.0-100.0); Mean Platelet Volume 8.2; Monocytes # (A) 0.7 k/uL (0-1.0); Monocytes % (A) 7 %; Neutrophils # (A) 5.7 k/uL (1.3-7.7); Neutrophils % (A) 61 %; Platelet Count 246 k/uL (150-450); RDW 13.2 % (11.5-15.5); WBC 9.4 k/uL (3.8-10.6)
[2020-02-24 21:19] LABS: INR 0.9 (<1.2); Partial Thromboplastin Time 23.7 sec (22.0-30.0); Prothrombin Time 9.9 sec (9.0-12.0)
[2020-02-24 21:28] LABS: ALT 16 U/L (4-34); AST 18 U/L (14-36); African American GFR (CKD) >90 (>60 ml/min/1.73 sqM); Albumin 4.5 g/dL (3.5-5.0); Alkaline Phosphatase 84 U/L (38-126); Amylase 46 U/L (30-110); Anion Gap 9 mmol/L; Blood Urea Nitrogen 18 mg/dL (7-17); Calcium 9.8 mg/dL (8.4-10.2); Carbon Dioxide 23 mmol/L (22-30); Chloride 104 mmol/L (98-107); Glucose 103 mg/dL (74-99); Magnesium 1.9 mg/dL (1.6-2.3); Non-African American GFR(CKD) >90 (>60 ml/min/1.73 sqM); Potassium 4.2 mmol/L (3.5-5.1); Sodium 136 mmol/L (137-145); Total Bilirubin 0.3 mg/dL (0.2-1.3)
--- NOTE | 2020-02-24 21:29 | XR ---
EXAMINATION TYPE: XR chest 1V portable DATE OF EXAM: 02/24/2020 COMPARISON: 02/15/2020 HISTORY: Left sided chest pain TECHNIQUE: FINDINGS: Heart and mediastinum are normal. Lungs are clear. Diaphragm is normal. Bony thorax appears normal. IMPRESSION: Normal chest. No change.
[2020-02-24] MEDS ORDERED: MORPHINE SULFATE 4 MG/ML SYRINGE IVP STA (23:06)
[2020-02-24 23:08] VITALS: BP 106/75; PULSE 72; RESP 18
== END 2020-02-24 23:30 | disposition home or self-care (01) ==
LOC: EC 20:15
DX: R07.89 Other chest pain (principal); M06.9 Rheumatoid arthritis, unspecified; G89.29 Other chronic pain; M54.2 Cervicalgia; F17.200 Nicotine dependence, unspecified, uncomplicated; G47.33 Obstructive sleep apnea (adult) (pediatric); Z79.891 Long term (current) use of opiate analgesic; Z79.899 Other long term (current) drug therapy; Z88.1 Allergy status to other antibiotic agents; Z98.1 Arthrodesis status; Z99.81 Dependence on supplemental oxygen
CPT/HCPCS: 36415; 93005; 85379; 80053; 82150; 83690; 83735; 84484; 85025; 85610; 85730; 71045; 99284; 96374; 96375; 96361; J2060; J2270

== ENCOUNTER 2020-02-25 16:01 | Observation (INO) | payer OTHER ==
[2020-02-25] MEDS ORDERED: ASPIRIN 81 MG PO STA (16:53)
[2020-02-25] MEDS ORDERED: SODIUM CHLORIDE 0.9% 1,000 ML IV STA (16:53)
[2020-02-25] MEDS ORDERED: MORPHINE SULFATE 4 MG/ML SYRINGE IV STA (16:53)
[2020-02-25] MEDS ORDERED: LORazepam 2 MG/ML INJ IV STA (16:54)
[2020-02-25 17:49] LABS: Basophils % (A) 1 %; Eosinophils # (A) 0.2 k/uL (0-0.7); Eosinophils % (A) 2 %; HCT 42.9 % (34.0-46.0); HGB 14.3 gm/dL (11.4-16.0); Lymphocytes % (A) 23 %; MCHC 33.4 g/dL (31.0-37.0); Mean Platelet Volume 8.4; Monocytes # (A) 0.7 k/uL (0-1.0); Monocytes % (A) 8 %; Neutrophils # (A) 5.6 k/uL (1.3-7.7); Neutrophils % (A) 64 %; Platelet Count 213 k/uL (150-450); RBC 4.61 m/uL (3.80-5.40); RDW 13.2 % (11.5-15.5); WBC 8.7 k/uL (3.8-10.6)
[2020-02-25 17:59] LABS: ALT 14 U/L (4-34); AST 17 U/L (14-36); African American GFR (CKD) >90 (>60 ml/min/1.73 sqM); Albumin 4.1 g/dL (3.5-5.0); Alkaline Phosphatase 74 U/L (38-126); Anion Gap 3 mmol/L; Appearance,Urine Clear (Clear); Bilirubin,Urine Negative (Negative); Blood Urea Nitrogen 13 mg/dL (7-17); Blood,Urine Negative (Negative); Calcium 9.4 mg/dL (8.4-10.2); Carbon Dioxide 26 mmol/L (22-30); Chloride 107 mmol/L (98-107); Color,Urine Yellow; Glucose 80 mg/dL (74-99); Glucose,Urine (UA) Negative (Negative); Ketones,Urine Negative (Negative); Leukocyte Esterase,Urine Negative (Negative); Nitrite,Urine Negative (Negative); Non-African American GFR(CKD) >90 (>60 ml/min/1.73 sqM); Potassium 4.2 mmol/L (3.5-5.1); Protein,Urine Negative (Negative); Sodium 136 mmol/L (137-145); Specific Gravity,Urine 1.015 (1.001-1.035); Total Bilirubin 0.5 mg/dL (0.2-1.3); Total Protein 7.4 g/dL (6.3-8.2); Urobilinogen,Urine <2.0 mg/dL (<2.0)
[2020-02-25 18:07] LABS: D-Dimer 0.26 mg/L FEU (<0.60); Partial Thromboplastin Time 22.7 sec (22.0-30.0); Prothrombin Time 10.1 sec (9.0-12.0)
[2020-02-25] MEDS ORDERED: NITROGLYCERIN SL TABS 0.4 MG TAB SUBLINGUAL PRN (18:46)
--- NOTE | 2020-02-25 18:49 | ED ---
General Adult HPI - General Source: patient Mode of arrival: ambulatory Limitations: no limitations <Rehana Huang - Last Filed: 02/25/20 20:35> <Fe Church - Last Filed: 02/27/20 13:46> - General Chief complaint: Anxiety Stated complaint: Chest pain, anxiety Time Seen by Provider: 02/25/20 16:22 - History of Present Illness Initial comments: Patient is a 44-year-old female, with history of anxiety, presenting to the emergency department with complaints of continued chest pain 3 days. Patient is also complaining of bilateral lower leg pain. This is patient's third visit in the ER in the past 2 weeks for same complaint. Patient was seen here yesterday and had a full chest pain workup. No acute findings on the workup. Patient has had recent stress echo which was normal. Patient states she co ntinues to have chest pain with no relief. She does have a history of anxiety and thinks is making things worse. She denies any injuries or trauma to her lower legs. She states they just "hurt." Patient denies any short of breath, cough, abdominal pain, nausea, vomiting. She has no other complaints. Upon arrival to the ER, her vital signs are stable. (Rehana Huang) - Related Data Home Medications Medication Instructions Recorded Confirmed Albuterol Inhaler [Ventolin Hfa 1 - 2 puff INHALATION RT-Q4H PRN 02/15/20 02/25/20 Inhaler] Propranolol HCl 80 mg PO BID 02/15/20 02/25/20 oxyCODONE-APAP 10-325MG [Percocet 1 tab PO TID 02/15/20 02/25/20 10-325 mg] ALPRAZolam [Xanax] 1 mg PO QID 02/25/20 02/25/20 Previous Rx's Medication Instructions Recorded Melatonin 5 mg PO HS #30 tablet 02/16/20 Pantoprazole [Protonix] 40 mg PO MALCOM-LATONYAFSFredo #30 tablet. 02/16/20 QUEtiapine [SEROquel] 50 mg PO HS #30 tab 02/16/20 Sertraline [Zoloft] 250 mg PO DAILY #30 tab 02/26/20 hydrOXYzine PAMOATE [Vistaril] 25 mg PO BID #30 cap 02/26/20 Allergies Allergy/AdvReac Type Severity Reaction Status Date / Time cephalexin [From Keflex] Allergy Rash/Hives Verified 02/25/20 16:08 Review of Systems ROS Other: All systems not noted in ROS Statement are negative. <ReinaRehana Jacinta - Last Filed: 02/25/20 20:35> ROS Other: All systems not noted in ROS Statement are negative. <Fe Church Varun - Last Filed: 02/27/20 13:46> ROS Statement: Those systems with pertinent positive or pertinent negative responses have been documented in the HPI. Past Medical History Past Medical History: GERD/Reflux, Osteoarthritis (OA), Pneumonia, Rheumatoid Arthritis (RA) Additional Past Medical History / Comment(s): Chronic pain which affects her more in her neck and back, fluid in spine since cervical fusion, numbness and tingling bilateral hands, Sjorgren's, +CHARLA, possible lupus, past elevated LFT, bronchitis and pne yearly, AUDRA-does not tolerate CPap-wears oxygen at HS only History of Any Multi-Drug Resistant Organisms: None Reported Past Surgical History: Back Surgery, Breast Surgery, Section, Tonsillectomy, Tubal Ligation, Uterine Ablation Additional Past Surgical History / Comment(s): D&C, cervical fusion, L breast benign biopsy, colonoscopy. Past Anesthesia/Blood Transfusion Reactions: No Reported Reaction Past Psychological History: Anxiety, Depression, Panic Disorder Smoking Status: Current every day smoker Past Alcohol Use History: Daily Past Drug Use History: None Reported - Past Family History Father Family Medical History: CVA/TIA Additional Family Medical History / Comment(s): Father from emphysema in his 60s. Mother Family Medical History: Hypertension <Rehana Huang - Last Filed: 02/25/20 20:35> General Exam Limitations: no limitations <Rehana Huang - Last Filed: 02/25/20 20:35> - General Exam Comments Initial Comments: GENERAL: Patient appears anxious, and in no acute distress. HEAD: Atraumatic, normocephalic. EYES: Pupils equal round and reactive to light, extraocular movements intact, sclera anicteric, conjunctiva are normal. ENT: TMs normal, nares patent, oropharynx clear without exudates. Moist mucous memb ranes. NECK: Normal range of motion, supple without lymphadenopathy or JVD. LUNGS: Breath sounds clear to auscultation bilaterally and equal. No wheezes rales or rhonchi. HEART: Regular rate and rhythm without murmurs, rubs or gallops. ABDOMEN: Soft, nontender, normoactive bowel sounds. No guarding, no rebound. No masses appreciated. : Deferred EXTREMITIES: Normal range of motion of bilateral lower extremities., no pitting or edema. No clubbing or cyanosis. Patient is neurovascular intact bilateral lower extremities. Sensation is equal and bilateral. NEUROLOGICAL: Cranial nerves II through XII grossly intact. Normal speech, normal gait. PSYCH: Normal mood, normal affect. SKIN: Warm, Dry, normal turgor, no rashes or lesions noted. (Rehana Huang) Course Vital Signs 02/25/20 02/25/20 02/25/20 16:03 17:48 17:51 Temperature 98.8 F Pulse Rate 81 67 Respiratory 18 18 Rate Blood Pressure 102/71 107/46 Blood Pressure 109/69 [Left Arm] Blood Pressure 115/61 [Right Arm] O2 Sat by Pulse 99 99 Oximetry 02/25/20 19:07 Temperature 98.3 F Pulse Rate 66 Respiratory 18 Rate Blood Pressure 119/65 Blood Pressure [Left Arm] Blood Pressure [Right Arm] O2 Sat by Pulse 98 Oximetry EKG Findings - EKG Comments: EKG Findings:: Ventricular rate 72, P are normal 182, QTC 411. Normal sinus rhythm. Normal ECG. No signs of acute ischemia. <Rehana Huang - Last Filed: 02/25/20 20:35> Medical Decision Making - Lab Data Result diagrams: 02/25/20 17:37 02/25/20 17:37 <eRhana Huang - Last Filed: 02/25/20 20:35> - Lab Data Result diagrams: 02/25/20 17:37 02/25/20 17:37 <Fe Church - Last Filed: 02/27/20 13:46> - Medical Decision Making Patient is a 44-year-old female presenting for chest pain 3 days as well as bilateral lower leg pain. Patient was seen in the ER yesterday for same complaint. Her workup yesterday was normal. I did have a long discussion with the patient before workup was starting regarding her continued anxiety and chest pain. Patient states that her chest pain has been worsening and she does not feel like her anxiety is causing her chest pain. Patient's vital signs today are normal. Her exam is unremarkable. She does appear to be anxious. EKG lisa ws no signs of acute ischemia, normal ECG. Lab work is unremarkable including normal d-dimer, normal troponin. Urine is normal as well. Given patient's continued complaints of chest pain and bilateral lower leg pain, CT chest and abdomen pelvis was ordered. This exam is normal, no evidence of aneurysm or dissection, no acute abnormalities found. Patient was given fluids, morphine, Ativan. She does report mild improvement in her symptoms. Patient will be admitted for possible cardiac catheterization. Patient was accepted by Dr. Langford and cardiology will be on consult. Patient is agreement with this plan of care. Case discussed with Dr. Church. (Rehana Huang) I was available for consultation in the emergency department. The history and physical exam were done by the midlevel provider. I was consulted for this patients care. I reviewed the case with the midlevel provider and based on their presentation of the patient, I agree with the assessment, medical decision making and plan of care as documented. The patient was evaluated by myself. She has been seen several times in the ED recently for report of chest pain. The patient now reports leg pain and therefore CT was performed of her aorta. CT was negative. Patient will be admitted for cardiology consultation. Chart was dictated using [employer] dictation software. Attempts were made to co rrect any dictation errors however some typographical errors may persist. Patient was seen during a national state of emergency due to the Covid-19 pandemic. (Fe Church) - Lab Data Lab Results 02/25/20 02/25/20 02/25/20 Range/Units 17:37 17:37 17:37 WBC 8.7 (3.8-10.6) k/uL RBC 4.61 (3.80-5.40) m/uL Hgb 14.3 (11.4-16.0) gm/dL Hct 42.9 (34.0-46.0) % MCV 93.0 (80.0-100.0) fL MCH 31.0 (25.0-35.0) pg MCHC 33.4 (31.0-37.0) g/dL RDW 13.2 (11.5-15.5) % Plt Count 213 (150-450) k/uL Neutrophils % 64 % Lymphocytes % 23 % Monocytes % 8 % Eosinophils % 2 % Basophils % 1 % Neutrophils # 5.6 (1.3-7.7) k/uL Lymphocytes # 2.0 (1.0-4.8) k/uL Monocytes # 0.7 (0-1.0) k/uL Eosinophils # 0.2 (0-0.7) k/uL Basophils # 0.0 (0-0.2) k/uL PT 10.1 (9.0-12.0) sec INR 1.0 (<1.2) APTT 22.7 (22.0-30.0) sec D-Dimer 0.26 (<0.60) mg/L FEU Sodium 136 L (137-145) mmol/L Potassium 4.2 (3.5-5.1) mmol/L Chloride 107 (98-107) mmol/L Carbon Dioxide 26 (22-30) mmol/L Anion Gap 3 mmol/L BUN 13 (7-17) mg/dL Creatinine 0.76 (0.52-1.04) mg/dL Est GFR (CKD-EPI)AfAm >90 (>60 ml/min/1.73 sqM) Est GFR (CKD-EPI)NonAf >90 (>60 ml/min/1.73 sqM) Glucose 80 (74-99) mg/dL Calcium 9.4 (8.4-10.2) mg/dL Magnesium 2.0 (1.6-2.3) mg/dL Total Bilirubin 0.5 (0.2-1.3) mg/dL AST 17 (14-36) U/L ALT 14 (4-34) U/L Alkaline Phosphatase 74 (38-126) U/L Troponin I (0.000-0.034) ng/mL Total Protein 7.4 (6.3-8.2) g/dL Albumin 4.1 (3.5-5.0) g/dL Urine Color Urine Appearance (Clear) Urine pH (5.0-8.0) Ur Specific [place] (1.001-1.035) Urine Protein (Negative) Urine Glucose (UA) (Negative) Urine Ketones (Negative) Urine Blood (Negative) Urine Nitrite (Negative) Urine Bilirubin (Negative) Urine Urobilinogen (<2.0) mg/dL Ur Leukocyte Esterase (Negative) 02/25/20 02/25/20 Range/Units 17:37 17:37 WBC (3.8-10.6) k/uL RBC (3.80-5.40) m/uL Hgb (11.4-16.0) gm/dL Hct (34.0-46.0) % MCV (80.0-100.0) fL MCH (25.0-35.0) pg MCHC (31.0-37.0) g/dL RDW (11.5-15.5) % Plt Count (150-450) k/uL Neutrophils % % Lymphocytes % % Monocytes % % Eosinophils % % Basophils % % Neutrophils # (1.3-7.7) k/uL Lymphocytes # (1.0-4.8) k/uL Monocytes # (0-1.0) k/uL Eosinophils # (0-0.7) k/uL Basophils # (0-0.2) k/uL PT (9.0-12.0) sec INR (<1.2) APTT (22.0-30.0) sec D-Dimer (<0.60) mg/L FEU Sodium (137-145) mmol/L Potassium (3.5-5.1) mmol/L Chloride (98-107) mmol/L Carbon Dioxide (22-30) mmol/L Anion Gap mmol/L BUN (7-17) mg/dL Creatinine (0.52-1.04) mg/dL Est GFR (CKD-EPI)AfAm (>60 ml/min/1.73 sqM) Est GFR (CKD-EPI)NonAf (>60 ml/min/1.73 sqM) Glucose (74-99) mg/dL Calcium (8.4-10.2) mg/dL Magnesium (1.6-2.3) mg/dL Total Bilirubin (0.2-1.3) mg/dL AST (14-36) U/L ALT (4-34) U/L Alkaline Phosphatase (38-126) U/L Troponin I <0.012 (0.000-0.034) ng/mL Total Protein (6.3-8.2) g/dL Albumin (3.5-5.0) g/dL Urine Color Yellow Urine Appearance Clear (Clear) Urine pH 6.0 (5.0-8.0) Ur Specific [place] 1.015 (1.001-1.035) Urine Protein Negative (Negative) Urine Glucose (UA) Negative (Negative) Urine Ketones Negative (Negative) Urine Blood Negative (Negative) Urine Nitrite Negative (Negative) Urine Bilirubin Negative (Negative) Urine Urobilinogen <2.0 (<2.0) mg/dL Ur Leukocyte Esterase Negative (Negative) Disposition Is patient prescribed a controlled substance at d/c from ED?: No Decision Date: 02/25/20 Decision Time: 18:51 <Rehana Huang - Last Filed: 02/25/20 20:35> <Fe Church - Last Filed: 02/27/20 13:46> Clinical Impression: Anxiety, Chest pain Disposition: ADMITTED IP TO THIS HOSP Condition: Stable
--- NOTE | 2020-02-25 19:15 | CT ---
EXAMINATION TYPE: CT angio thor/abd pel aorta DATE OF EXAM: 02/25/2020 COMPARISON: 07/24/2013 HISTORY: chest pain, leg pain CT DLP: 1635.1 mGycm Automated exposure control for dose reduction was used. CONTRAST: Performed without and with IV Contrast, patient injected with 100 mL of Isovue 370. FINDINGS: CT chest: Thyroid appears somewhat prominent extending to the superior mediastinum. No enlarged mediastinal or hilar lymph nodes are evident. The ascending thoracic aorta at the level t he main pulmonary artery is 3.4 cm. The main pulmonary bifurcation is 2.5 cm. There is some minimal dependent increased density within the lung patel may be some compressive atel ectasis. Minimal groundglass opacity cannot be excluded. CT abdomen and pelvis: Liver and spleen and this phase of contrast appear unremarkable. Pancreas is u nremarkable. Gallbladder is normal. Adrenal glands are normal. Kidneys are normal without masses cyst s or hydronephrosis. Loops of bowel without contrast are normal. CT PELVIS: Uterus is unremarkable. Urinary bladder is normal. There may be some small cysts on the ri ght ovary. No free fluid is within the pelvis. Vascular calcification is within the aorta. Common iliac internal and external iliac vessels in the c ommon femoral arteries are patent. No aneurysm or dissection is identified. Descending thoracic aorta is unremarkable. Ascending thoracic aorta is within normal limits. Aortic arch is unremarkable. IMPRESSION: THORACIC ABDOMINAL AORTA AND ILIAC VESSELS EXTENDING TO THE COMMON FEMORAL ARTERIES ARE NORMAL. NO AN EURYSM OR DISSECTION EVIDENT.. NO ACUTE ABNORMALITIES
[2020-02-25 20:07] VITALS: RESP 16
[2020-02-25] MEDS ORDERED: MELATONIN 5 MG TABLET PO SCH (22:00)
[2020-02-25] MEDS ORDERED: QUEtiapine 50 MG TAB PO SCH (22:00)
[2020-02-25] MEDS: oxyCODONE-APAP 10-325MG 1 EACH TAB PO SCH (22:16)
[2020-02-25] MEDS: ALPRAZolam 1 MG TAB PO SCH (22:17)
--- NOTE | 2020-02-25 22:41 | HP ---
HISTORY AND PHYSICAL This patient is a 44-year-old white female with history of anxiety who presented to the ER with continued chest pain for 3 days, bilateral lower leg pain. She was in the hospital 2 weeks ago for the same thing. She was seen here yesterday for chest pain workup. She comes back today for more chest pain. Thoracic CT scan of the chest shows no aneurysms. She has a history of anxiety, panic disorder. She is complaining of severe trauma and neuropathy in her legs; they just hurt. She denies any shortness of breath, cough, abdominal pain, nausea, vomiting, fever or chills. She was admitted for 23 hours to rule out myocardial infarction, cardiology consult and psych consult. MEDICATIONS: Ventolin HFA, propranolol, Percocet, Zantac. ALLERGIES: KEFLEX. REVIEW OF SYSTEMS: Fourteen-point review of systems negative except for mentioned in HPI. LABS: Essentially normal. PAST MEDICAL HISTORY: Osteoarthritis, GERD, pneumonia, rheumatoid arthritis, Sjogren's, CHARLA and possible lupus, obstructive sleep apnea. She does not wear CPAP like she should. PAST SURGICAL HISTORY: Back surgery, breast surgery, , tonsillectomy, tubal ligation, uterine ablation, D&C, cervical fusion, left breast benign biopsy, anxiety, depression, panic disorder. Current everyday smoker. FAMILY HISTORY: Father with CVA, TIA, emphysema. Mother with hypertension. PHYSICAL EXAMINATION: Vital signs stable. Afebrile. Temperature 98.8, pulse 67 to 81, respiratory rate 18 to 20, blood pressure 102 to 107 over 46 to 71. CARDIOVASCULAR: S1, S2. LUNGS: Clear. GI: Soft. HEMATOLOGY: Negative Homans. PSYCH: Anxious, nervous. VASCULAR: Normal dorsalis pedis, posterior tibial, radial pulse. OPHTHALMOLOGIC: Pupils equal, round, reactive. ASSESSMENT: Atypical chest pain, anxiety, chest pain with a normal D-dimer, elevated troponin. Rule out myocardial infarction. Cardiology is consulted. Questionable thyroid enlargement. Will check her thyroid levels. Possibly cardiac catheterization if she has breakthrough chest pain despite normal testing and normal CTA of the chest. Await cardiology recommendations. MMODL / IJN: [id number] /
[2020-02-25] MEDS: PROPRANOLOL 40 MG TAB PO SCH (23:09)
[2020-02-26 06:11] LABS: Cholesterol 173 mg/dL (<200); HDL Cholesterol 50 mg/dL (40-60); LDL Cholesterol,Calculated 112 mg/dL (0-99); Triglycerides 55 mg/dL (<150)
[2020-02-26] MEDS: oxyCODONE-APAP 10-325MG 1 EACH TAB PO SCH ×2 (06:31→15:26)
[2020-02-26] MEDS ORDERED: PANTOPRAZOLE 40 MG TABLET PO SCH (07:30)
[2020-02-26] MEDS ORDERED: SERTRALINE 100 MG TAB PO SCH (09:00)
[2020-02-26] MEDS ORDERED: ASPIRIN 325 MG TAB PO SCH (09:00)
[2020-02-26] MEDS: ALPRAZolam 1 MG TAB PO SCH ×2 (09:21→12:23)
[2020-02-26] MEDS: PROPRANOLOL 40 MG TAB PO SCH (09:22)
--- NOTE | 2020-02-26 09:54 | CONS ---
CONSULTATION Silvana Jenkins is a 44-year-old lady who was recently admitted with episode of chest pain, had a stress echo that was completely negative at a heart rate of more than 85% of predicted maximal heart rate. She has other comorbid conditions. She came in after that again to the emergency room and was discharged. This time she presented with what she complains as a sensation of discomfort in the chest that seem to come on spontaneously when she was not doing any activity. She also had a panic attack that preceded this episode of chest pain and the pain in the chest lasted probably of 5 to 10 seconds and then she had discomfort in her left leg and also she had some discomfort in the right leg and she had more panic attack and came into the hospital. She has no further chest pain. She is resting comfortably. Quality of pain is atypical. There is a significant element of anxiety. She also seems to take some pain medications, Percocet, on a regular basis. I am not clear as to the etiology of pain. She carries a diagnosis of osteoarthritis and rheumatoid arthritis. She has had some back surgery, breast surgery, tonsillectomy, details of which are unavailable. At the time of my evaluation, she is asymptomatic. She had a CAT scan of the chest that did not reveal any evidence of aortic pathology. Troponins are normal. She is resting comfortably. She was seen by Dr. Flores and scheduled to have an office visit with him in 2 weeks from now. Please refer to the recent history and physical as well. PHYSICAL EXAMINATION: Physical exam revealed blood pressure 110/70, pulse rate is 60 per minute, regular. HEENT: Unremarkable. Fundus was not examined by me. Neck is supple. No JVD. I do not hear a carotid bruit. There is no thyromegaly. Heart exam reveals S1, S2 heard normally. No rub, murmur or gallop. Lungs are clear. Abdomen is soft, nontender. Lower extremities reveal normal pulses. No edema. Central nervous system is normal. EKG is unremarkable. LABORATORY DATA: Laboratory data revealed unremarkable troponins. CT angiogram of the chest did not reveal any significant aortic pathology. Thyroid functions are normal. She had a D- dimer which was unremarkable. IMPRESSION: 1. Anxiety. 2. Atypical chest pain. 3. Recent negative stress echo. RECOMMENDATION: I am recommending that we increase activity, discharge her with anxiolytics as advised by her PCP/hospitalist and she can be discharged today and follow up with Dr. Flores as scheduled in the next 2 weeks. I discussed my thoughts in detail with the patient and also spoke to Dr. Florencio Langford, her primary care physician. Thank you very much for the consult. INGRID / ALEXIS: [id number] /
[2020-02-26] MEDS ORDERED: SERTRALINE 50 MG TAB PO STA (13:49)
--- NOTE | 2020-02-26 13:56 | P.CN ---
Psychiatric Consult - . 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 HISTORY OF PRESENT ILLNESS: The patient presented to the hospital complaining of chest pain which radiated down to her legs bilaterally yesterday. She states that the chest pain has been going on for 3 days according to the ER report. This has been patient's third visit to the ER in 2 weeks and patient had underwent cardiac workup which came back negative. Patient was admitted to Dr Gillis. Psychiatry was consulted for anxiety/panic attacks. Patient claims that after she left the hospital previously she has been taking her Zoloft and claims that it has helped her anxiety however she claims that her side anxiety continued to worsen over time and states that she's been having 2-3 panic attacks per day. She claims she's continued to have chest pain and pain in her legs. She was requesting a cardiac catheterization and further cardiac workup. She claims that her sleep has been poor however states that she sleeps approximately 8 hours a night and has had frequent awakenings. She states that her appetite is "okay fine". She claims that her mood as been "up and down". She states that she is also been taking Xanax at home to help with her panic attacks and usually takes her approximately 45 minutes for the panic attack 2 subside. At this time patient denies any suicidal or homical ideations, intent or plan. Patient denies any auditory, visual hallucinations and denies any paranoia or delusions. Patient denies using any recreational drugs cigarettes or alcohol. PAST PSYCHIATRIC HISTORY: She claims have a significant history of anxiety and panic attacks. She was previously on Zoloft 200 mg at bedtime, Seroquel 50 mg daily at bedtime and also does not have a outpatient psychiatrist. She states that she follows up with her primary care physician for these medications. She denies any previous psychiatric hospitalizations. She denies any history of suicide attempts. PAST MEDICAL HISTORY: GERD, osteoarthritis, rheumatoid arthritis. ALLERGIES: as per EMR. CHEMICAL DEPENDENCY HISTORY: as per HPI. FAMILY PSYCHIATRIC/SUBSTANCE USE HISTORY: Dates that her great-grandmother suffered from depression SOCIAL HISTORY: Claims to be born and raised in [facility] and has some college and completed high school. 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 She states that she lives with her [id number] and is engaged. MENTAL STATUS EXAM: General Appearance: Patient appears to be stated age is alert, pleasant, and attempts to be cooperative. Patient appears to have fair hygiene and grooming wearing hospital gown with fair eye contact. Behavior: Patient is calmly lying in bed without any agitated behavior. Times to cooperate. Speech: Patient's speech is fluent and nonpressured. Mood/Affect: Patient reports their mood is "up and down", affect is congruent and constricted. Suicidality/Homicidality: Patient denies having any suicidal or homicidal ideation intent or plan. Perceptions: Patient denies any visual hallucinations and denies any auditory hallucinations Though content/process: There is no evidence of any delusional thought content and thought process is linear and goal-directed. Preoccupied with her anxiety and pain Memory and concentration: AOX3, grossly intact for the purposes of this session. Can spell "WORLD" backwards Judgment and insight: Fair IMPRESSIONS: Panic disorder with Agoraphobia. PLAN: -At this time patient DOES NOT meet criteria for inpatient psychiatric admission. -Would recommend the following medication changes/additions: Increase Zoloft to 250 mg daily for mood/anxiety, continue with Seroquel 50 mg daily at bedtime for anxiety/insomnia/mood. Increased melatonin 10 mg daily at bedtime for sleep. Can continue with Xanax scheduled 4 times a day. Added Vistaril 25 mg twice a day for anxiety which can be titrated up to 50 mg twice a day and 1-2 days if patient is continuing to have anxiety. -Will continue to follow along as needed. -Patient's cardiac workup for the most part has been negative and thoracic CT showed no aneurysms and no acute abnormalities. TSH and free T4 are within normal limits and troponins were negative 3 on admission. -Please contact with any questions. 02/26/20 13:50
[2020-02-26] MEDS ORDERED: hydrOXYzine PAMOATE 25 MG CAP PO SCH (14:00)
[2020-02-26 16:09] VITALS: BP 93/59; PULSE 64; TEMP 97.9
--- NOTE | 2020-02-26 18:09 | P.DS ---
Providers Date of admission: 02/25/20 18:46 Expected date of discharge: 02/26/20 Attending physician: Florencio Langford Consults: 02/25/20 18:46 Consult Physician Urgent Consulting Provider: Donavon López Consult Reason/Comments: chest pain Do you want consulting provider notified?: Yes 02/25/20 21:39 Consult Physician Routine Consulting Provider: Yohannes Yun Consult Reason/Comments: panic/bipolar/anxiety Do you want consulting provider notified?: Yes Primary care physician: [facility] Course: Final Diagnoses: Atypical chest pain, acute coronary syndrome ruled out as per cardiology. Panic disorder with Agoraphobia Gastroesophageal reflux disease Chronic pain syndrome Ongoing nicotine dependence This a 44-year-old female admitted with multiple medical issues including chest pain, neuropathy of bilateral lower extremities, anxiety, panic disorder. Troponins negative 3. Evaluated by cardiology and psychiatry. Thoracic CT reported no aneurysms or dissection, no acute abnormalities. TSH and free T4 within normal limits. Medication adjustments as per psychiatry. Please refer to consults/progress notes for specifics/further details. Cleared by psychiatry and cardiology for discharge. Patient is being discharged home in a stable condition with guarded prognosis. The impression and plan of care has been dictated as directed. : I performed a history and examination of this patient, discussed the same with the dictator. I agree with the dictator's note ,documented as a scribe. Any additional findings or plans will be noted. Patient Condition at Discharge: Stable Plan - Discharge Summary Discharge Rx Participant: No New Discharge Prescriptions: New hydrOXYzine PAMOATE [Vistaril] 25 mg PO BID #30 cap Sertraline [Zoloft] 250 mg PO DAILY #30 tab Continue oxyCODONE-APAP 10-325MG [Percocet 10-325 mg] 1 tab PO TID Propranolol HCl 80 mg PO BID Albuterol Inhaler [Ventolin Hfa Inhaler] 1 - 2 puff INHALATION RT-Q4H PRN PRN Reason: Shortness Of Breath Melatonin 5 mg PO HS #30 tablet Pantoprazole [Protonix] 40 mg PO AC-BRKFST #30 tablet. QUEtiapine [SEROquel] 50 mg PO HS #30 tab ALPRAZolam [Xanax] 1 mg PO QID Discharge Medication List Albuterol Inhaler [Ventolin Hfa Inhaler] 1 - 2 puff INHALATION RT-Q4H PRN 02/15/20 [History] Propranolol HCl 80 mg PO BID 02/15/20 [History] oxyCODONE-APAP 10-325MG [Percocet 10-325 mg] 1 tab PO TID 02/15/20 [History] Melatonin 5 mg PO HS #30 tablet 02/16/20 [Rx] Pantoprazole [Protonix] 40 mg PO AC-BRKFST #30 tablet. 02/16/20 [Rx] QUEtiapine [SEROquel] 50 mg PO HS #30 tab 02/16/20 [Rx] ALPRAZolam [Xanax] 1 mg PO QID 02/25/20 [History] Sertraline [Zoloft] 250 mg PO DAILY #30 tab 02/26/20 [Rx] hydrOXYzine PAMOATE [Vistaril] 25 mg PO BID #30 cap 02/26/20 [Rx] Follow up Appointment(s)/Referral(s): Dr. GABRIELLE Psychiatry [Other] - 1 Week Florencio Langford MD [Primary Care Provider] - 3 Days Patient Instructions/Handouts: Chest Pain (ED), Anxiety (ED) Discharge Disposition: HOME SELF-CARE
[2020-02-26] MEDS ORDERED: MELATONIN 5 MG TABLET PO SCH (21:00)
[2020-02-27] MEDS ORDERED: SERTRALINE 100 MG TAB PO SCH (09:00)
== END 2020-02-26 16:44 | disposition home or self-care (01) ==
LOC: EC 16:01 → 3SCARD 18:46
PROVIDERS: ADMIT Family Medicine; ATTEND Family Medicine
DX: R07.89 Other chest pain (principal); F40.01 Agoraphobia with panic disorder; R79.89 Other specified abnormal findings of blood chemistry; K21.9 Gastro-esophageal reflux disease without esophagitis; F17.200 Nicotine dependence, unspecified, uncomplicated; G89.4 Chronic pain syndrome; G62.9 Polyneuropathy, unspecified; F31.9 Bipolar disorder, unspecified; M19.90 Unspecified osteoarthritis, unspecified site; M06.9 Rheumatoid arthritis, unspecified; G47.00 Insomnia, unspecified; R20.0 Anesthesia of skin; R20.2 Paresthesia of skin; M79.661 Pain in right lower leg; M79.662 Pain in left lower leg; M35.00 Sjogren syndrome, unspecified; G47.33 Obstructive sleep apnea (adult) (pediatric); Z98.1 Arthrodesis status; Z88.1 Allergy status to other antibiotic agents; Z87.01 Personal history of pneumonia (recurrent); Z87.09 Personal history of other diseases of the respiratory system; Z79.899 Other long term (current) drug therapy; Z79.891 Long term (current) use of opiate analgesic; Z81.8 Family history of other mental and behavioral disorders; Z82.5 Family history of asthma and other chronic lower respiratory diseases; Z82.3 Family history of stroke; Z82.49 Family history of ischemic heart disease and other diseases of the circulatory system
CPT/HCPCS: 93005 ×2; 96361; 96374; 96375; 99285; 36415; 85379; 84481; 80061; 80053; 84443; 83735; 84484 ×2; 85025; 85610; 85730; 81003; 71275; 74174; G0378 ×2; J2060; J2270; Q9967

== ENCOUNTER 2020-06-15 18:04 | Emergency (ER) | payer OTHER ==
[2020-06-15 18:08] VITALS: TEMP 98.5
[2020-06-15] MEDS ORDERED: ORPHENADRINE 30 MG/ML 2 ML VIAL IVP STA (18:35)
[2020-06-15] MEDS ORDERED: methylPREDNISolone SOD SUCCI 125 MG/2 ML VIAL IV STA (18:35)
[2020-06-15] MEDS ORDERED: KETOROLAC 30 MG/ML 1 ML VIAL IVP STA (18:35)
--- NOTE | 2020-06-15 18:38 | ED ---
General Adult HPI - General Chief complaint: Back Pain/Injury Stated complaint: back pain Time Seen by Provider: 06/15/20 18:14 Source: patient, RN notes reviewed Mode of arrival: wheelchair Limitations: no limitations - History of Present Illness Initial comments: Patient is a 44-year-old female with a past medical history of rheumatoid arthritis, chronic back and neck pain, Sjogren's, lupus who presents to the emergency room for a chief complaint of back pain. Patient states this is an exacerbation of her chronic back pain. States it is in the left lower back and radiates down the left leg. Patient states it is painful to stand up straight which makes it difficult to walk. She denies any weakness of the lower extremities. Denies any numbness or tingling of the lower extremities or saddle region. Denies bladder or bowel changes. Denies fevers or chills. Denies any history of IV drug abuse. Patient has a remote history of cervical spine fusion. Patient has tried Motrin for pain without improvement.Patient has no other complaints at this time including shortness of breath, chest pain, abdominal pain, nausea or vomiting, headache, or visual changes. - Related Data Home Medications Medication Instructions Recorded Confirmed Albuterol Inhaler [Ventolin Hfa 1 - 2 puff INHALATION RT-Q4H PRN 02/15/20 02/25/20 Inhaler] Propranolol HCl 80 mg PO BID 02/15/20 02/25/20 oxyCODONE-APAP 10-325MG [Percocet 1 tab PO TID 02/15/20 02/25/20 10-325 mg] ALPRAZolam [Xanax] 1 mg PO QID 02/25/20 02/25/20 Previous Rx's Medication Instructions Recorded Melatonin 5 mg PO HS #30 tablet 02/16/20 Pantoprazole [Protonix] 40 mg PO MALCOM-BRKFST #30 tablet. 02/16/20 QUEtiapine [SEROquel] 50 mg PO HS #30 tab 02/16/20 Sertraline [Zoloft] 250 mg PO DAILY #30 tab 02/26/20 hydrOXYzine pamoate [Vistaril] 25 mg PO BID #30 cap 02/26/20 Cyclobenzaprine [Flexeril] 10 mg PO TID #10 tab 06/15/20 predniSONE 50 mg PO DAILY #4 tablet 06/15/20 Allergies Allergy/AdvReac Type Severity Reaction Status Date / Time cephalexin [From Keflex] Allergy Rash/Hives Verified 06/15/20 18:08 Review of Systems ROS Statement: Those systems with pertinent positive or pertinent negative responses have been documented in the HPI. ROS Other: All systems not noted in ROS Statement are negative. Past Medical History Past Medical History: GERD/Reflux, Osteoarthritis (OA), Pneumonia, Rheumatoid Arthritis (RA) Additional Past Medical History / Comment(s): Chronic pain which affects her more in her neck and back, fluid in spine since cervical fusion, numbness and tingling bilateral hands, Sjorgren's, +CHARLA, possible lupus, past elevated LFT, bronchitis and pne yearly, AUDRA-does not tolerate CPap-wears oxygen at HS only History of Any Multi-Drug Resistant Organisms: None Reported Past Surgical History: Back Surgery, Breast Surgery, Section, Tonsill ectomy, Tubal Ligation, Uterine Ablation Additional Past Surgical History / Comment(s): D&C, cervical fusion, L breast benign biopsy, colonoscopy. Past Anesthesia/Blood Transfusion Reactions: No Reported Reaction Past Psychological History: Anxiety, Depression, Panic Disorder Smoking Status: Current every day smoker Past Alcohol Use History: Occasional Past Drug Use History: None Reported - Past Family History Father Family Medical History: CVA/TIA Additional Family Medical History / Comment(s): Father from emphysema in his 60s. Mother Family Medical History: Hypertension General Exam Limitations: no limitations General appearance: alert, in no apparent distress Head exam: Present: atraumatic, normocephalic, normal inspection Eye exam: Present: normal appearance, PERRL, EOMI. Absent: scleral icterus, conjunctival injection, periorbital swelling ENT exam: Present: normal exam, mucous membranes moist Neck exam: Present: normal inspection, full ROM. Absent: tenderness, meningismus, lymphadenopathy Respiratory exam: Present: normal lung sounds bilaterally. Absent: respiratory distress, wheezes, rales, rhonchi, stridor Cardiovascular Exam: Present: regular rate, normal rhythm, normal heart sounds. Absent: systolic murmur, diastolic murmur, rubs, gallop, clicks GI/Abdominal exam: Present: soft, normal bowel sounds. Absent: distended, tenderness, guarding, rebound, rigid Extremities exam: Present: normal capillary refill (capillary refill less than 2 seconds, DP pulse 2+ in the left lower extremity.), other (sensation intact less lower extremity.) Course Vital Signs 06/15/20 18:05 Temperature 98.5 F Pulse Rate 102 H Respiratory 18 Rate Blood Pressure 140/66 O2 Sat by Pulse 98 Oximetry Medical Decision Making - Medical Decision Making Patient presents for left-sided back pain radiating down the left leg. Patient has a history of chronic back pain. No red flag symptoms. Patient is able to flex lumbar spine to 45. Patient is able to ambulate but walks with somewhat antalgic gait with flexion of the lumbar spine. Neurovascular status intact in the lower extremities. Tenderness noted to the left lower back. Patient was given pain medication and had significant improvement in pain. Patient ambulate in without difficulty. Patient states she will take her Percocet at home. She will be put on steroids given radiculopathy. She is requesting procedure for muscle relaxer which was given to her. She has an appointment with her doctor tomorrow where she will follow-up. She will return here for any worsening symptoms. Disposition Clinical Impression: Mechanical back pain Disposition: HOME SELF-CARE Condition: Good Instructions (If sedation given, give patient instructions): Acute Low Back Pain (ED) Additional Instructions: please take your Percocet for pain. Take steroid as directed. Do not take Motrin while taking steroid. Take muscle relaxer as needed. Follow-up with your doctor tomorrow at your scheduled appointment. Return here to the emergenc y room should you have any worsening symptoms. Prescriptions: Cyclobenzaprine [Flexeril] 10 mg PO TID #10 tab predniSONE 50 mg PO DAILY #4 tablet Is patient prescribed a controlled substance at d/c from ED?: No Referrals: Florencio Langford MD [Primary Care Provider] - 1-2 days Time of Disposition: 20:20
[2020-06-15] MEDS ORDERED: HYDROmorphone 0.5 MG/0.5 ML SYRINGE IVP STA (19:13)
[2020-06-15 20:36] VITALS: BP 125/75; PULSE 99; RESP 17
== END 2020-06-15 20:35 | disposition home or self-care (01) ==
LOC: EC 18:04
DX: M54.5 Low back pain (principal); M54.2 Cervicalgia; G89.29 Other chronic pain; F32.9 Major depressive disorder, single episode, unspecified; F41.9 Anxiety disorder, unspecified; F17.200 Nicotine dependence, unspecified, uncomplicated; Z79.899 Other long term (current) drug therapy; Z98.1 Arthrodesis status; Z88.2 Allergy status to sulfonamides; G47.33 Obstructive sleep apnea (adult) (pediatric); Z99.81 Dependence on supplemental oxygen
CPT/HCPCS: 99283; 96374; 96375 ×3; J2360; J2930; J1885; J1170

== ENCOUNTER 2020-10-15 12:54 | Emergency (ER) | payer OTHER ==
[2020-10-15] MEDS ORDERED: KETOROLAC 15 MG/ML 1 ML VIAL IVP STA (14:13)
[2020-10-15] MEDS ORDERED: MORPHINE SULFATE 4 MG/ML SYRINGE IV STA (14:13)
[2020-10-15] MEDS ORDERED: SODIUM CHLORIDE 0.9% 1,000 ML IV STA (14:13)
[2020-10-15] MEDS ORDERED: methylPREDNISolone SOD SUCCI 125 MG/2 ML VIAL IV STA (14:14)
--- NOTE | 2020-10-15 14:19 | ED ---
General Adult HPI - General Chief complaint: Recheck/Abnormal Lab/Rx Stated complaint: unable to lift arms, can't bend legs, back pain Time Seen by Provider: 10/15/20 14:00 Source: patient, RN notes reviewed, old records reviewed Mode of arrival: ambulatory Limitations: no limitations - History of Present Illness Initial comments: Patient is a 44-year-old female presents to emergency department today for evaluation complaints of back pain leg pain and arm pain for the past 2 days. She reports that she is known history of lupus and believes she is having a flare. She denies any fevers or chills. Denies any falls or trauma. She states that her arms and legs feel stiff and has shooting pains into her back and extremities when she moves them. Patient states that she was previously treated with methotrexate plaque on elbow has somewhat stopped these medications many years ago. Patient denies any abdominal changes in urination or bowel habits. Denies vomiting. Denies headache. She reports that she takes Percocet at home for pain. - Related Data Home Medications Medication Instructions Recorded Confirmed Albuterol Inhaler [Ventolin Hfa 2 puff INHALATION RT-Q4H PRN 02/15/20 10/15/20 Inhaler] Propranolol HCl 80 mg PO BID 02/15/20 10/15/20 Mometasone Inhalr 220 Mcg/Puff 2 puff INHALATION RT-BID 10/15/20 10/15/20 [Asmanex] Pantoprazole [Protonix] 40 mg PO DAILY 10/15/20 10/15/20 oxyCODONE-APAP 7.5-325MG [Percocet 1 tab PO TID 10/15/20 10/15/20 7.5-325 mg] traZODone HCL 50 mg PO HS 10/15/20 10/15/20 Previous Rx's Medication Instructions Recorded Cyclobenzaprine [Flexeril] 10 mg PO TID #12 tab 10/15/20 predniSONE [Deltasone] 20 mg PO DIRECTED #12 tab 10/15/20 Allergies Allergy/AdvReac Type Severity Reaction Status Date / Time cephalexin [From Keflex] Allergy Rash/Hives Verified 10/15/20 15:39 Review of Systems ROS Statement: Those systems with pertinent positive or pertinent negative responses have been documented in the HPI. ROS Other: All systems not noted in ROS Statement are negative. Past Medical History Past Medical History: GERD/Reflux, Osteoarthritis (OA), Pneumonia, Rheumatoid Arthritis (RA), Sleep Apnea/CPAP/BIPAP Additional Past Medical History / Comment(s): Chronic pain which affects her more in her neck and back, fluid in spine since cervical fusion, numbness and tingling bilateral hands, Sjorgren's, +CHARLA, lupus, past elevated LFT, br onchitis and pne yearly, AUDRA-does not tolerate CPap-wears oxygen at HS only History of Any Multi-Drug Resistant Organisms: None Reported Past Surgical History: Back Surgery, Breast Surgery, Section, Tonsillectomy, Tubal Ligation, Uterine Ablation Additional Past Surgical History / Comment(s): D&C, cervical fusion, L breast benign biopsy, colonoscopy. Past Anesthesia/Blood Transfusion Reactions: No Reported Reaction Past Psychological History: Anxiety, Depression, Panic Disorder Smoking Status: Current every day smoker Past Alcohol Use History: Occasional Past Drug Use History: None Reported - Past Family History Father Family Medical History: CVA/TIA Additional Family Medical History / Comment(s): Father from emphysema in his 60s. Mother Family Medical History: Hypertension General Exam - General Exam Comments Initial Comments: Silvana is a 44-year-old female. Resting in bed. Alert and oriented. No distress. Limitations: no limitations General appearance: alert, in no apparent distress Head exam: Present: atraumatic, normocephalic, normal inspection Eye exam: Present: normal appearance, PERRL, EOMI. Absent: scleral icterus, conjunctival injection, periorbital swelling ENT exam: Present: normal exam, mucous membranes moist Neck exam: Present: normal inspection. Absent: tenderness, meningismus, lymphadenopathy Respiratory exam: Present: normal lung sounds bilaterally. Absent: respiratory distress, wheezes, rales, rhonchi, stridor Cardiovascular Exam: Present: regular rate, normal rhythm, normal heart sounds. Absent: systolic murmur, diastolic murmur, rubs, gallop, clicks GI/Abdominal exam: Present: soft, normal bowel sounds. Absent: distended, t enderness, guarding, rebound, rigid Extremities exam: Present: normal inspection, normal capillary refill. Absent: full ROM (Stiffness and limited range of motion of all 4 extremities due to pain.), tenderness, pedal edema, joint swelling, calf tenderness Back exam: Present: normal inspection Neurological exam: Present: alert, oriented X3, CN II-XII intact Course Vital Signs 10/15/20 13:04 Temperature 99.0 F Pulse Rate 88 Respiratory 20 Rate Blood Pressure 127/79 O2 Sat by Pulse 99 Oximetry - Reevaluation(s) Reevaluation #1: 10/15/20 15:58 Patient is a evaluating she has some improvement in pain but still rates that the elevated. I informed her lab results that everything appear within normal limits. She states that she seems that her pain levels to high and can't catch up with the pain medicine she has at home. We'll offer the Patient 1 more dose of pain medication. Patient will be planned to be discharged with muscle relaxers. Patient scrambled this plan. Medical Decision Making - Medical Decision Making 44-year-old female with a history of lupus bleeding she having a flareup for the past 2 days of diffuse joint and body aches and arms and legs. Patient was given IV fluids labwork obtained. Labs reviewed including CRP relatively unrem arkable. Reevaluated she does state that she still having pain. . Patient was given IV pain meds emergency department and I advised her to follow up with her primary care doctor to take Percocet at home. I did discuss that she can be placed on steroids and muscle relaxers until following up with PCP. - Lab Data Result diagrams: 10/15/20 14:38 10/15/20 14:38 Lab Results 10/15/20 10/15/20 10/15/20 Range/Units 14:38 14:38 14:38 WBC 8.8 (3.8-10.6) k/uL RBC 4.81 (3.80-5.40) m/uL Hgb 15.2 (11.4-16.0) gm/dL Hct 46.5 H (34.0-46.0) % MCV 96.8 (80.0-100.0) fL MCH 31.6 (25.0-35.0) pg MCHC 32.7 (31.0-37.0) g/dL RDW 13.8 (11.5-15.5) % Plt Count 193 (150-450) k/uL MPV 8.7 Neutrophils % 74 % Lymphocytes % 17 % Monocytes % 5 % Eosinophils % 2 % Basophils % 0 % Neutrophils # 6.5 (1.3-7.7) k/uL Lymphocytes # 1.5 (1.0-4.8) k/uL Monocytes # 0.5 (0-1.0) k/uL Eosinophils # 0.2 (0-0.7) k/uL Basophils # 0.0 (0-0.2) k/uL ESR 14 (0-20) mm/hr Sodium 139 (137-145) mmol/L Potassium 4.2 (3.5-5.1) mmol/L Chloride 110 H (98-107) mmol/L Carbon Dioxide 22 (22-30) mmol/L Anion Gap 7 mmol/L BUN 9 (7-17) mg/dL Creatinine 0.62 (0.52-1.04) mg/dL Est GFR (CKD-EPI)AfAm >90 (>60 ml/min/1.73 sqM) Est GFR (CKD-EPI)NonAf >90 (>60 ml/min/1.73 sqM) Glucose 100 H (74-99) mg/dL Calcium 9.5 (8.4-10.2) mg/dL Total Bilirubin 0.7 (0.2-1.3) mg/dL AST 24 (14-36) U/L ALT 15 (4-34) U/L Alkaline Phosphatase 71 (38-126) U/L C-Reactive Protein 12.6 H (<10.0) mg/L Total Protein 7.8 (6.3-8.2) g/dL Albumin 4.1 (3.5-5.0) g/dL Urine Color Yellow Urine Appearance Cloudy H (Clear) Urine pH 5.5 (5.0-8.0) Ur Specific [place] 1.022 (1.001-1.035) Urine Protein Trace H (Negative) Urine Glucose (UA) Negative (Negative) Urine Ketones Negative (Negative) Urine Blood Negative (Negative) Urine Nitrite Negative (Negative) Urine Bilirubin Negative (Negative) Urine Urobilinogen <2.0 (<2.0) mg/dL Ur Leukocyte Esterase Small H (Negative) Urine RBC 2 (0-5) /hpf Urine WBC 2 (0-5) /hpf Ur Squamous Epith Cells 10 H (0-4) /hpf Urine Mucus Many H (None) /hpf Disposition Clinical Impression: Joint pain, Chronic pain syndrome Disposition: HOME SELF-CARE Condition: Good Instructions (If sedation given, give patient instructions): Musculoskeletal Pain (ED) Additional Instructions: Please use medication as discussed. Please follow up with family doctor if symptoms have not improved over the next two days. Please return to the em ergency room if your symptoms increase or worsen or for any other concerns. Prescriptions: predniSONE [Deltasone] 20 mg PO DIRECTED #12 tab Cyclobenzaprine [Flexeril] 10 mg PO TID #12 tab Is patient prescribed a controlled substance at d/c from ED?: No Referrals: Florencio Langford MD [Primary Care Provider] - 1-2 days Time of Disposition: 16:00
[2020-10-15 14:56] LABS: Basophils % (A) 0 %; Eosinophils # (A) 0.2 k/uL (0-0.7); Eosinophils % (A) 2 %; HCT 46.5 % (34.0-46.0); HGB 15.2 gm/dL (11.4-16.0); Lymphocytes # (A) 1.5 k/uL (1.0-4.8); Lymphocytes % (A) 17 %; MCH 31.6 pg (25.0-35.0); MCHC 32.7 g/dL (31.0-37.0); MCV 96.8 fL (80.0-100.0); Mean Platelet Volume 8.7; Monocytes # (A) 0.5 k/uL (0-1.0); Monocytes % (A) 5 %; Neutrophils # (A) 6.5 k/uL (1.3-7.7); Neutrophils % (A) 74 %; Platelet Count 193 k/uL (150-450); RBC 4.81 m/uL (3.80-5.40); RDW 13.8 % (11.5-15.5); WBC 8.8 k/uL (3.8-10.6)
[2020-10-15 14:59] LABS: Appearance,Urine Cloudy (Clear); Bilirubin,Urine Negative (Negative); Blood,Urine Negative (Negative); Color,Urine Yellow; Glucose,Urine (UA) Negative (Negative); Ketones,Urine Negative (Negative); Leukocyte Esterase,Urine Small (Negative); Mucus,Urine Many /hpf; Nitrite,Urine Negative (Negative); PH, Urine 5.5 (5.0-8.0); Protein,Urine Trace (Negative); RBC,Urine 2 /hpf (0-5); Specific Gravity,Urine 1.022 (1.001-1.035); Squamous Epithelial Cell,Urine 10 /hpf (0-4); Urobilinogen,Urine <2.0 mg/dL (<2.0); WBC,Urine 2 /hpf (0-5)
[2020-10-15 15:18] LABS: ALT 15 U/L (4-34); AST 24 U/L (14-36); African American GFR (CKD) >90 (>60 ml/min/1.73 sqM); Albumin 4.1 g/dL (3.5-5.0); Alkaline Phosphatase 71 U/L (38-126); Anion Gap 7 mmol/L; Blood Urea Nitrogen 9 mg/dL (7-17); C Reactive Protein 12.6 mg/L (<10.0); Calcium 9.5 mg/dL (8.4-10.2); Carbon Dioxide 22 mmol/L (22-30); Chloride 110 mmol/L (98-107); Glucose 100 mg/dL (74-99); Non-African American GFR(CKD) >90 (>60 ml/min/1.73 sqM); Potassium 4.2 mmol/L (3.5-5.1); Sodium 139 mmol/L (137-145); Total Bilirubin 0.7 mg/dL (0.2-1.3); Total Protein 7.8 g/dL (6.3-8.2)
--- NOTE | 2020-10-15 15:20 | XR ---
EXAMINATION TYPE: XR chest 2V DATE OF EXAM: 10/15/2020 COMPARISON: 02/24/2020 HISTORY: Abdominal pain TECHNIQUE: 2 views FINDINGS: Heart and mediastinum are normal. Lungs are clear. Diaphragm is normal. Bony thorax is norm al. IMPRESSION: Normal chest. No change.
[2020-10-15 15:35] LABS: Erythrocyte Sedimentation Rate 14 mm/hr (0-20)
[2020-10-15] MEDS ORDERED: HYDROmorphone 1 MG/ML 1 ML SYRINGE IVP STA (15:58)
[2020-10-15 16:38] VITALS: BP 142/76; PULSE 79; RESP 18; TEMP 98.2
== END 2020-10-15 16:37 | disposition home or self-care (01) ==
LOC: EC 12:54
DX: G89.4 Chronic pain syndrome (principal); M25.50 Pain in unspecified joint; K21.9 Gastro-esophageal reflux disease without esophagitis; G47.30 Sleep apnea, unspecified; F17.200 Nicotine dependence, unspecified, uncomplicated; Z79.899 Other long term (current) drug therapy; Z88.1 Allergy status to other antibiotic agents; Z99.89 Dependence on other enabling machines and devices; Z98.1 Arthrodesis status
CPT/HCPCS: 36415; 80053; 85652; 85025; 86140; 81001; 71046; 99284; 96374; 96375 ×3; 96361; J2270; J2930; J1170; J1885

== ENCOUNTER 2020-12-28 09:21 | Observation (INO) | payer OTHER ==
[2020-12-28] MEDS ORDERED: MORPHINE SULFATE 4 MG/ML SYRINGE IV STA (10:02)
[2020-12-28] MEDS ORDERED: SODIUM CHLORIDE 0.9% 500 ML 500 ML IV STA (10:02)
[2020-12-28] MEDS ORDERED: LORazepam 2 MG/ML INJ IV STA (10:09)
--- NOTE | 2020-12-28 10:50 | ED ---
Chest Pain HPI - General Chief Complaint: Chest Pain Stated Complaint: Chest Pain Time Seen by Provider: 12/28/20 09:30 Source: patient Mode of arrival: ambulatory Limitations: no limitations - History of Present Illness Initial Comments: Patient is a 45 year old female past mental history of rheumatoid arthritis, chronic pain, self-reported anxiety who presents to the emergency room with reported chest pain. States that the pain was intermittent yesterday. Located over the left chest wall underneath the breast. Pain has subsequently become constant. Denies any provocative factors. Describes it as a sharp shooting pain. States she had similar previous before however does not have a diagnosis. States that the pain is so significant that it makes her nauseated. She attempted to take Motrin yesterday and early this morning with no improvement in her symptoms. States that she woke up this morning and attempted to take a shower. Reports that her significant other found her sitting in the shower with suspected single episode. She is unsure how long she was out for. States it wasn't too long. Denies hitting her head or losing consciousness. No headaches or visual changes at this time. Denies any weakness in her extremities. Does admit that she has a numbing and tingling sensation to her left arm. No fevers or chills. Denies cough. No shortness of breath. No history of DVT or PE. Does admit to left calf pain. No other alleviating, precipitating or modifying factors - Related Data Home Medications Medication Instructions Recorded Confirmed Albuterol Inhaler [Ventolin Hfa 2 puff INHALATION RT-Q4H PRN 02/15/20 12/28/20 Inhaler] Propranolol HCl 80 mg PO BID 02/15/20 12/28/20 Pantoprazole [Protonix] 40 mg PO DAILY 10/15/20 12/28/20 traZODone HCL 50 mg PO HS 10/15/20 12/28/20 ALPRAZolam [Xanax] 0.5 mg PO TID PRN 12/28/20 12/28/20 Sertraline HCl [Zoloft] 100 mg PO BID 12/28/20 12/28/20 oxyCODONE HCL/ACETAMINOPHEN 1 tab PO TID PRN 12/28/20 12/28/20 [Percocet 10-325 mg] Allergies Allergy/AdvReac Type Severity Reaction Status Date / Time cephalexin [From Keflex] Allergy Rash/Hives Verified 12/28/20 11:36 Review of Systems ROS Statement: Those systems with pertinent positive or pertinent negative responses have been documented in the HPI. ROS Other: All systems not noted in ROS Statement are negative. EKG Findings - EKG Comments: EKG Findings:: EKG demonstrates normal sinus rhythm with a ventricular rate of 76. VA 124. QRS 86. QTC 398. Q-wave with inverted T-wave in lead 3. No acute ST segment elevations Past Medical History Past Medical History: GERD/Reflux, Osteoarthritis (OA), Pneumonia, Rheumatoid Arthritis (RA), Sleep Apnea/CPAP/BIPAP Additional Past Medical History / Comment(s): Chronic pain which affects her more in her neck and back, fluid in spine since cervical fusion, numbness and tingling bilateral hands, Sjorgren's, +CHARLA, lupus, past elevated LFT, bronchitis and pne yearly, AUDRA-does not tolerate CPap-wears oxygen at HS only, Lupus History of Any Multi-Drug Resistant Organisms: None Reported Past Surgical History: Back Surgery, Breast Surgery, Section, Tonsillectomy, Tubal Ligation, Uterine Ablation Additional Past Surgical History / Comment(s): D&C, cervical fusion, L breast benign biopsy, colonoscopy. Past Anesthesia/Blood Transfusion Reactions: No Reported Reaction Past Psychological History: Anxiety, Depression, Panic Disorder Smoking Status: Current every day smoker Past Alcohol Use History: Occasional Past Drug Use History: None Reported - Past Family History Father Family Medical History: CVA/TIA Additional Family Medical History / Comment(s): Father from emphysema in his 60s. Mother Family Medical History: Hypertension General Exam Limitations: no limitations General appearance: alert, in no apparent distress Head exam: Present: atraumatic, normocephalic, normal inspection Eye exam: Present: normal appearance, PERRL, EOMI. Absent: scleral icterus, conjunctival injection, periorbital swelling ENT exam: Present: normal exam, mucous membranes moist Neck exam: Present: normal inspection. Absent: tenderness, meningismus, lymphadenopathy Respiratory exam: Present: normal lung sounds bilaterally. Absent: respiratory distress, wheezes, rales, rhonchi, stridor Cardiovascular Exam: Present: regular rate, normal rhythm, normal heart sounds. Absent: systolic murmur, diastolic murmur, rubs, gallop, clicks GI/Abdominal exam: Present: soft, normal bowel sounds. Absent: distended, tenderness, guarding, rebound, rigid Extremities exam: Present: normal inspection, full ROM, normal capillary refill. Absent: tenderness, pedal edema, joint swelling, calf tenderness Back exam: Present: normal inspection Neurological exam: Present: alert, oriented X3, CN II-XII intact Psychiatric exam: Present: normal affect, normal mood Skin exam: Present: warm, dry, intact, normal color. Absent: rash Course Vital Signs 12/28/20 12/28/20 12/28/20 09:27 10:00 11:00 Temperature 98 F Pulse Rate 86 78 70 Respiratory 18 16 16 Rate Blood Pressure 119/67 121/80 125/81 O2 Sat by Pulse 97 98 96 Oximetry 12/28/20 12/28/20 12/28/20 11:30 11:47 13:21 Temperature Pulse Rate 64 72 75 Respiratory 18 17 18 Rate Blood Pressure 114/57 113/64 100/54 O2 Sat by Pulse 98 98 97 Oximetry Chest Pain MDM - MDM Upon arrival patient was placed into room 7. A thorough history and physical exam is performed. 12-lead EKG is performed. IV is established. Patient was given 4 mg of morphine. Laboratory studies are conducted. CT of the patient's chest is performed which demonstrates no acute pulmonary embolism with no acute process. I waited states that she did have some improvement in her chest pain or a temporary period of time. Pain has now returned. Patient was ordered an aspirin and Nitropaste. Patient is requesting "something for anxiety" and therefore is given 1 mg of Ativan. Results are discussed with the patient. Did recommend hospitalization in order to trend the patient's troponins. Patient agreed with this. Spoke with Dr. Tesfaye who agreed to admit the patient. She remained in stable condition awaiting bed Disposition Clinical Impression: Chest pain Disposition: ADMITTED IP TO THIS HOSP Condition: Stable Is patient prescribed a controlled substance at d/c from ED?: No Decision to Admit Reason: Admit from EC Decision Date: 12/28/20 Decision Time: 12:44
[2020-12-28 11:02] LABS: Basophils % (A) 1 %; Eosinophils # (A) 0.2 k/uL (0-0.7); Eosinophils % (A) 2 %; HGB 16.1 gm/dL (11.4-16.0); Lymphocytes # (A) 2.1 k/uL (1.0-4.8); Lymphocytes % (A) 28 %; MCH 32.4 pg (25.0-35.0); MCHC 33.5 g/dL (31.0-37.0); MCV 96.8 fL (80.0-100.0); Mean Platelet Volume 8.6; Monocytes # (A) 0.7 k/uL (0-1.0); Monocytes % (A) 9 %; Neutrophils # (A) 4.4 k/uL (1.3-7.7); Neutrophils % (A) 59 %; Platelet Count 263 k/uL (150-450); RBC 4.96 m/uL (3.80-5.40); RDW 13.8 % (11.5-15.5); WBC 7.5 k/uL (3.8-10.6)
--- NOTE | 2020-12-28 11:10 | CT ---
CT CHEST FOR PULMONARY EMBOLISM. EXAMINATION TYPE: CT chest angio for PE DATE OF EXAM: 12/28/2020 INDICATION: SOB, chest pain CT DLP: 339.6 mGycm, Automated exposure control for dose reduction was used. CONTRAST: Patient injected with 71 mL of Isovue 370. COMPARISON: None TECHNIQUE: CT of the chest is performed on a spiral scan at 2 mm thick sections. Study is performed with intravenous contrast timed for evaluation for pulmonary embolism. This will limit additional po rtions of the evaluation. 3-D MIP images reconstructed by the technologist are reviewed on the compu ter in the coronal and sagittal planes. FINDINGS: No persistent filling defects are evident to suggest an acute pulmonary embolism. No mediastinal or hilar adenopathy enlarged by CT criteria is evident. The ascending aorta diameter at the level of the main pulmonary artery is 3.2 cm. The main pulmonary artery diameter at the bifur cation is 2.6 cm. Lung windows are clear. Limited CT section through the upper abdomen are unremarkable. IMPRESSIONS: 1. No acute pulmonary embolism. 2. No acute pulmonary process.
[2020-12-28 11:13] LABS: ALT 15 U/L (4-34); AST 19 U/L (14-36); African American GFR (CKD) >90 (>60 ml/min/1.73 sqM); Albumin 4.6 g/dL (3.5-5.0); Alkaline Phosphatase 89 U/L (38-126); Anion Gap 11 mmol/L; Blood Urea Nitrogen 9 mg/dL (7-17); Calcium 10.2 mg/dL (8.4-10.2); Carbon Dioxide 21 mmol/L (22-30); Chloride 104 mmol/L (98-107); Glucose 122 mg/dL (74-99); Lipase 58 U/L (23-300); Magnesium 1.9 mg/dL (1.6-2.3); Non-African American GFR(CKD) >90 (>60 ml/min/1.73 sqM); Potassium 4.3 mmol/L (3.5-5.1); Sodium 136 mmol/L (137-145); Total Bilirubin 0.9 mg/dL (0.2-1.3); Total Protein 8.5 g/dL (6.3-8.2)
--- NOTE | 2020-12-28 11:13 | XR ---
EXAMINATION TYPE: XR chest 2V DATE OF EXAM: 12/28/2020 COMPARISON: 10/15/2020 INDICATION: Chest pain TECHNIQUE: Frontal and lateral views of the chest are obtained. FINDINGS: The heart size is normal. The pulmonary vasculature is normal. The lungs are clear. IMPRESSION: 1. No acute pulmonary process.
[2020-12-28 11:36] LABS: INR 0.9 (<1.2)
[2020-12-28 12:07] LABS: D-Dimer 0.23 mg/L FEU (<0.60)
[2020-12-28 12:27] LABS: Partial Thromboplastin Time 21.8 sec (22.0-30.0)
[2020-12-28] MEDS ORDERED: NALOXONE 0.4 MG/ML 1 ML VIAL IV PRN (12:44)
[2020-12-28] MEDS ORDERED: NITROGLYCERIN OINT 1 INCH/GM PACKET TOPICAL STA (12:46)
[2020-12-28] MEDS ORDERED: ASPIRIN 81 MG PO STA (12:46)
[2020-12-28] MEDS: SODIUM CHLORIDE 0.9% 1,000 ML IV SCH ×2 (13:07→16:56)
[2020-12-28] MEDS: oxyCODONE-APAP 10-325MG 1 EACH TAB PO PRN (14:27)
[2020-12-28] MEDS: ALPRAZolam 0.5 MG TAB PO PRN ×2 (14:27→20:15)
[2020-12-28] MEDS: MORPHINE SULFATE 2 MG/ML SYRINGE IVP PRN (20:01)
[2020-12-28] MEDS: traZODone HCL 50 MG TAB PO SCH (20:01)
[2020-12-28] MEDS: SERTRALINE 100 MG TAB PO SCH (20:01)
[2020-12-28] MEDS: PROPRANOLOL 40 MG TAB PO SCH (21:28)
[2020-12-29] MEDS: MORPHINE SULFATE 2 MG/ML SYRINGE IVP PRN ×6 (00:23→22:35)
[2020-12-29] MEDS: SODIUM CHLORIDE 0.9% 1,000 ML IV SCH ×3 (00:31→23:49)
[2020-12-29] MEDS: ALPRAZolam 0.5 MG TAB PO PRN ×3 (04:12→20:33)
[2020-12-29] MEDS: ALBUTEROL NEBULIZED 2.5 MG/3 ML INHALATION PRN ×2 (07:38→21:11)
[2020-12-29] MEDS: PROPRANOLOL 40 MG TAB PO SCH ×2 (08:28→20:34)
[2020-12-29] MEDS: PANTOPRAZOLE 40 MG TABLET PO SCH ×2 (08:28→08:30)
[2020-12-29] MEDS: SERTRALINE 100 MG TAB PO SCH ×2 (08:28→20:33)
[2020-12-29 09:01] LABS: Basophils # (A) 0.03 X 10*3/uL (0.00-0.10); Basophils % (A) 0.4 %; Eosinophils # (A) 0.13 X 10*3/uL (0.04-0.35); Eosinophils % (A) 1.9 %; HCT 39.6 % (37.2-46.3); Lymphocytes # (A) 2.33 X 10*3/uL (0.90-5.00); Lymphocytes % (A) 33.6 %; MCH 32.2 pg (27.0-32.0); MCHC 32.8 g/dL (32.0-37.0); Monocytes # (A) 0.91 X 10*3/uL (0.20-1.00); Monocytes % (A) 13.1 %; Neutrophils # (A) 3.52 X 10*3/uL (1.80-7.70); Neutrophils % (A) 50.7 %; Platelet Count 202 X 10*3/uL (140-440); RBC 4.04 X 10*6/uL (4.10-5.20); RDW 13.7 % (11.5-14.5); WBC 6.94 X 10*3/uL (4.50-10.00)
[2020-12-29 09:58] LABS: African American GFR (CKD) 122.1 (60.0-200.0); Anion Gap 6.8 mmol/L (4.00-12.00); BUN/Creat Ratio 21.43 Ratio (12.00-20.00); Calcium 8.8 mg/dL (8.7-10.3); Carbon Dioxide 21.2 mmol/L (21.6-31.8); Non-African American GFR(CKD) 105.4 (60.0-200.0); Potassium 4.3 mmol/L (3.5-5.5)
--- NOTE | 2020-12-29 10:16 | P.CRDCN ---
History of Present Illness History of present illness: HISTORY OF PRESENTING ILLNESS This is a pleasant 45-year-old female past medical history significant for rheumatoid arthritis, sleep apnea, chronic pain syndrome, anxiety and chron ic nicotine dependence. 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 We have been asked to see in consultation for chest pain. Claims of having pain and discomfort under the left breast. The pain is described as a sharp pain that shoots through from the front to the back. She has suffered with this pain frequently in the past. She underwent a stress test last year where she walked on the treadmill for 8 minutes and had no evidence of stress-induced ischemia. At times she has associated nausea. She states she had an episode of syncope in the shower that was preceded by a sharp pain in the chest and then she felt nauseated and vomited. The pain radiates down her left leg and down her left arm. The pain is not exacerbated by exertion or activity. DIAGNOSTICS EKG reveals sinus mechanism with no acute ST or T wave abnormalities noted. Telemetry tracings indicate sinus mechanism. Chest xray negative for an acute cardiopulmonary process. CTA is negative for pulmonary embolism. Laboratory reviewed, WBC 6.9, hemoglobin 13, platelets 202, d-dimer 0.23, sodium 136, potassium 4.3, creatinine 0.7, magnesium 1.9, cardiac enzymes negative 3, proBNP 131. Current cardiac medications include propanolol 80 mg twice a day that she was prescribed secondary to anxiety. REVIEW OF SYSTEMS At the time of my exam: CONSTITUTIONAL: Denies fever or chills. CARDIOVASCULAR: Denies chest pain, shortness of breath, orthopnea, PND or p alpitations. RESPIRATORY: Denies cough. GASTROINTESTINAL: Denies abdominal pain, diarrhea, constipation, nausea or vomiting. MUSCULOSKELETAL: Denies myalgias. NEUROLOGIC: Denies numbness, tingling, headacbe or weakness. ENDOCRINE: Denies fatigue, weight change, polydipsia or polyurina. GENITOURINARY: Denies burning, hematuria or urgency with micturation. HEMATOLOGIC: Denies history of anemia or bleeding. PHYSICAL EXAMINATION Blood pressure 122/79 heart rate 60 afebrile and maintaining oxygen saturation on room air. CONSTITUTIONAL: No apparent distress. HEENT: Head is normocephalic. Pupils are equal, round. Sclerae anicteric. Mucous membranes of the mouth are moist. No JVD. No carotid bruit. CHEST EXAMINATION: Lungs are clear to auscultation. No chest wall tenderness is noted on palpation or with deep breathing. HEART EXAMINATION: Regular rate and rhythm. S1, S2 heard. No murmurs, gallops or rub. ABDOMEN: Soft, nontender. Positive bowel sounds. EXTREMITIES: 2+ peripheral pulses, no lower extremity edema and no calf tenderness. NEUROLOGIC EXAMINATION: Patient is awake, alert and oriented x3. ASSESSMENT Chest pain Obstructive sleep apnea Rheumatoid arthritis Chronic nicotine dependence PLAN An acute coronary event has been ruled out. Pain is atypical for angina and reproducible with movement. Recent stress test was normal. Obtain 2-D echocardiogram and Doppler study to assess cardiac structure and function. No further cardiac workup at this time, patient may be discharged home. Smoking cessation recommended. Thank you kindly for this consultation. Nurse Practitioner note has been reviewed, I agree with a documented findings and plan of care. Patient was seen and examined. Past Medical History Past Medical History: GERD/Reflux, Osteoarthritis (OA), Pneumonia, Rheumatoid Arthritis (RA), Sleep Apnea/CPAP/BIPAP Additional Past Medical History / Comment(s): Chronic pain which affects her more in her neck and back, fluid in spine since cervical fusion, numbness and tingling bilateral hands, Sjorgren's, +CHARLA, lupus, past elevated LFT, bronchitis and pne yearly, AUDRA-does not tolerate CPap-wears oxygen at HS only, Lupus History of Any Multi-Drug Resistant Organisms: None Reported Past Surgical History: Back Surgery, Breast Surgery, Section, Tonsillectomy, Tubal Ligation, Uterine Ablation Additional Past Surgical History / Comment(s): D&C, cervical fusion, L breast benign biopsy, colonoscopy. Past Anesthesia/Blood Transfusion Reactions: No Reported Reaction Past Psychological History: Anxiety, Depression, Panic Disorder Smoking Status: Current every day smoker Past Alcohol Use History: Occasional Past Drug Use History: None Reported - Past Family History Father Family Medical History: CVA/TIA Additional Family Medical History / Comment(s): Father from emphysema in his 60s. Mother Family Medical History: Hypertension Medications and Allergies Home Medications Medication Instructions Recorded Confirmed Type Albuterol Inhaler [Ventolin Hfa 2 puff INHALATION RT-Q4H PRN 02/15/20 12/28/20 History Inhaler] Propranolol HCl 80 mg PO BID 02/15/20 12/28/20 History Pantoprazole [Protonix] 40 mg PO DAILY 10/15/20 12/28/20 History traZODone HCL 50 mg PO HS 10/15/20 12/28/20 History ALPRAZolam [Xanax] 0.5 mg PO TID PRN 12/28/20 12/28/20 History Sertraline HCl [Zoloft] 100 mg PO BID 12/28/20 12/28/20 History oxyCODONE HCL/ACETAMINOPHEN 1 tab PO TID PRN 12/28/20 12/28/20 History [Percocet 10-325 mg] Allergies Allergy/AdvReac Type Severity Reaction Status Date / Time cephalexin [From Keflex] Allergy Rash/Hives Verified 12/28/20 11:36 Physical Exam Vitals: Vital Signs Temp Pulse Pulse Resp BP BP Pulse Ox 12/29/20 07:50 60 16 12/29/20 07:43 98 12/29/20 07:41 63 16 12/29/20 01:04 98.3 F 66 16 119/75 97 12/28/20 19:25 98.4 F 60 16 115/69 97 12/28/20 16:52 17 12/28/20 16:49 98.7 F 72 16 101/64 96 12/28/20 13:21 75 18 100/54 97 12/28/20 11:47 72 17 113/64 98 12/28/20 11:30 64 18 114/57 98 12/28/20 11:00 70 16 125/81 96 12/28/20 10:00 78 16 121/80 98 12/28/20 09:27 98 F 86 18 119/67 97 Intake and Output 12/28/20 12/29/20 12/29/20 22:59 06:59 14:59 Intake Total 800 Balance 800 Intake: Intake, IV Titration 800 Amount Sodium Chloride 0.9% 1, 800 000 ml @ 100 mls/hr IV . Q10H [facility] Rx#:[id number] Other: Voiding Method Toilet # Voids 1 Results 12/29/20 05:48 12/29/20 05:48 Cardiac Enzymes 12/28/20 12/28/20 12/28/20 Range/Units 10:20 10:20 14:41 AST 19 (14-36) U/L Troponin I <0.012 <0.012 (0.000-0.034) ng/mL 12/28/20 Range/Units 18:44 AST (14-36) U/L Troponin I <0.012 (0.000-0.034) ng/mL Coagulation 12/28/20 Range/Units 10:20 PT 10.0 (9.0-12.0) sec APTT 21.8 L (22.0-30.0) sec CBC 12/28/20 Range/Units 10:20 WBC 7.5 (3.8-10.6) k/uL RBC 4.96 (3.80-5.40) m/uL Hgb 16.1 H (11.4-16.0) gm/dL Hct 48.0 H (34.0-46.0) % Plt Count 263 (150-450) k/uL Comprehensive Metabolic Panel 12/28/20 Range/Units 10:20 Sodium 136 L (137-145) mmol/L Potassium 4.3 (3.5-5.1) mmol/L Chloride 104 (98-107) mmol/L Carbon Dioxide 21 L (22-30) mmol/L BUN 9 (7-17) mg/dL Creatinine 0.75 (0.52-1.04) mg/dL Glucose 122 H (74-99) mg/dL Calcium 10.2 (8.4-10.2) mg/dL AST 19 (14-36) U/L ALT 15 (4-34) U/L Alkaline Phosphatase 89 (38-126) U/L Total Protein 8.5 H (6.3-8.2) g/dL Albumin 4.6 (3.5-5.0) g/dL Current Medications Generic Name Dose Route Start Last Admin Trade Name Freq PRN Reason Stop Dose Admin Albuterol Sulfate 2.5 mg 12/28/20 14:14 12/29/20 07:38 Albuterol Nebulized 2.5 Mg/3 Ml INHALATION 2.5 mg RT-Q4H PRN Administration Shortness Of Breath Alprazolam 0.5 mg 12/28/20 14:14 12/29/20 04:12 Alprazolam 0.5 Mg Tab PO 0.5 mg TID PRN Administration Anxiety Sodium Chloride 1,000 mls @ 100 mls/hr 12/28/20 12:45 12/29/20 01:22 Saline 0.9% IV 100 mls/hr .Q10H [facility] Administration Morphine Sulfate 2 mg 12/28/20 19:37 12/29/20 04:12 Morphine Sulfate 2 Mg/Ml Syringe IVP 2 mg Q4H PRN Administration Pain/Discomfort Naloxone HCl 0.2 mg 12/28/20 12:44 Naloxone 0.4 Mg/Ml 1 Ml Vial IV Q2M PRN Opioid Reversal Oxycodone/Acetaminophen 1 each 12/28/20 14:14 12/28/20 14:27 Oxycodone-Apap 10-325mg 1 Each Tab PO 1 each TID PRN Administration Pain Pantoprazole Sodium 40 mg 12/29/20 09:00 Pantoprazole 40 Mg Tablet PO DAILY [facility] Propranolol HCl 80 mg 12/28/20 21:00 12/28/20 21:28 Propranolol 40 Mg Tab PO 80 mg BID [facility] Administration Sertraline HCl 100 mg 12/28/20 21:00 12/28/20 20:01 Sertraline 100 Mg Tab PO 100 mg BID [facility] Administration Trazodone HCl 50 mg 12/28/20 21:00 12/28/20 20:01 Trazodone Hcl 50 Mg Tab PO 50 mg HS [facility] Administration Intake and Output 12/28/20 12/29/20 12/29/20 22:59 06:59 14:59 Intake Total 800 Balance 800 Intake: Intake, IV Titration 800 Amount Sodium Chloride 0.9% 1, 800 000 ml @ 100 mls/hr IV . Q10H [facility] Rx#:[id number] Other: Voiding Method Toilet # Voids 1 12/28/20 10:20 12/28/20 10:20
--- NOTE | 2020-12-29 11:00 | ECHOF ---
Referral Reason:cp MEASUREMENTS -------- HEIGHT: 162.6 cm WEIGHT: 81.6 kg BP: 119/75 RVIDd: 2.9 cm (< 3.3) IVSd: 1.3 cm (0.6 - 1.1) LVIDd: 4.1 cm (3.9 - 5.3) LVPWd: 1.4 cm (0.6 - 1.1) IVSs: 1.7 cm LVIDs: 2.7 cm LVPWs: 2.0 cm LAESV Index (A-L): 24.84 ml/m Ao Diam: 2.9 cm (2.0 - 3.7) AV Cusp: 1.5 cm (1.5 - 2.6) LA Diam: 3.5 cm (2.7 - 3.8) MV EXCURSION: 14.703 mm (> 18.000) MV EF SLOPE: 135 mm/s (70 - 150) EPSS: 0.4 cm MV E Jayce: 1.02 m/s MV DecT: 212 ms MV A Jayce: 0.60 m/s MV E/A Ratio: 1.70 RAP: 5.00 mmHg RVSP: 29.02 mmHg FINDINGS -------- Sinus rhythm. This was a technically adequate study. The left ventricular size is normal. There is mild concentric left ventricular hypertrophy. Overa ll left ventricular systolic function is normal with, an EF between 55 - 60 %. The diastolic fillin g pattern is normal for the age of the patient 13.08. The right ventricle is normal in size. Normal LA size by volume 22+/-6 ml/m2. The right atrial size is normal. Interatrial and interventricular septum intact. There is no evidence of aortic regurgitation. There is no evidence of aortic stenosis. There is trace mitral regurgitation. Mild tricuspid regurgitation present. There is no evidence of pulmonary hypertension. The right v entricular systolic pressure, as measured by Doppler, is 29.02mmHg. There is no pulmonic regurgitation present. The aortic root size is normal. The inferior vena cava is mildly dilated. There is no pericardial effusion. CONCLUSIONS -------- 1. The left ventricular size is normal. 2. There is mild concentric left ventricular hypertrophy. 3. Overall left ventricular systolic function is normal with, an EF between 55 - 60 %. 4. The diastolic filling pattern is normal for the age of the patient 13.08 5. There is trace mitral regurgitation. 6. Mild tricuspid regurgitation present. SHOP COORDINATOR: Sophia Smith RDCS
[2020-12-29 11:33] LABS: Chol/HDL Ratio 2.85; LDL Cholesterol,Calculated 104.8 mg/dL (0.0-131.0); VLDL Calculation 19.2 mg/dL (5.00-40.00)
[2020-12-29 14:13] VITALS: RESP 16
[2020-12-29] MEDS: oxyCODONE-APAP 10-325MG 1 EACH TAB PO PRN ×2 (14:44→20:33)
[2020-12-29] MEDS: traZODone HCL 50 MG TAB PO SCH (20:33)
--- NOTE | 2020-12-29 22:01 | HP ---
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 She came in with atypical chest pain in her left breast, sharp stabbing pain that goes to her back. She has had chest pain in the past attributed to anxiety. A year ago she had a negative stress test. She has some nausea. She has a negative D-dimer, negative LFTs. Chest x-ray is normal. Cardiology apparently cleared her for discharge. She states she has pain down her left leg and her left arm. She has a history of cervical lumbar disc disease and anxiety. EKG shows sinus rhythm, no acute changes. Telemetry: No arrhythmias. CTA is negative for pulmonary embolism. Chest x-ray is negative. White count 6 9, hemoglobin 13. D-dimer 0.23. Sodium 136, potassium 4.3, creatinine 0.7, magnesium 1.9. Cardiac enzymes are negative. BNP is 131. REVIEW OF SYSTEMS: Fourteen-point review of systems negative except for mentioned in the HPI. PHYSICAL EXAMINATION: Blood pressure 120s over 70s, heart rate 60. Respiratory rate is normal. HEENT: Normocephalic, atraumatic. LUNGS: Clear. HEART: S1, S2. ABDOMEN: Soft, nontender. EXTREMITIES: Two plus peripheral edema. NEUROLOGIC: Cranial nerves intact. ASSESSMENT: 1. Atypical chest pain. 2. Obstructive sleep apnea. 3. Rheumatoid arthritis. 4. Current nicotine addiction. 5. Chronic obstructive pulmonary disease. 6. Cervical lumbar disc disease. Cleared by Cardiology. No significant reasons to keep her hospitalized have been found. CT scan of the chest negative. Heart disease has been ruled out. Gallbladder enzymes are all negative. Possible workup GERD versus esophageal spasm versus anxiety versus radiculopathy as an outpatient. MMODL / IJN: [id number] /
[2020-12-30] MEDS: MORPHINE SULFATE 2 MG/ML SYRINGE IVP PRN ×3 (03:46→12:08)
[2020-12-30] MEDS: SODIUM CHLORIDE 0.9% 1,000 ML IV SCH (05:01)
[2020-12-30] MEDS: PROPRANOLOL 40 MG TAB PO SCH (08:05)
[2020-12-30] MEDS: ALPRAZolam 0.5 MG TAB PO PRN (08:05)
[2020-12-30] MEDS: SERTRALINE 100 MG TAB PO SCH (08:05)
[2020-12-30] MEDS: oxyCODONE-APAP 10-325MG 1 EACH TAB PO PRN (09:25)
[2020-12-30 14:33] VITALS: BP 96/60; PULSE 57; TEMP 98.5
== END 2020-12-30 15:29 | disposition home or self-care (01) ==
LOC: EC 09:21 → 6NMEDSUR 12:44
PROVIDERS: ADMIT Family Medicine; ATTEND Family Medicine
DX: R07.89 Other chest pain (principal); G47.33 Obstructive sleep apnea (adult) (pediatric); M06.9 Rheumatoid arthritis, unspecified; J44.9 Chronic obstructive pulmonary disease, unspecified; F17.200 Nicotine dependence, unspecified, uncomplicated; M51.9 Unspecified thoracic, thoracolumbar and lumbosacral intervertebral disc disorder; I25.10 Atherosclerotic heart disease of native coronary artery without angina pectoris; R11.0 Nausea; N64.4 Mastodynia; G89.4 Chronic pain syndrome; F41.0 Panic disorder [episodic paroxysmal anxiety]; F41.9 Anxiety disorder, unspecified; Z82.5 Family history of asthma and other chronic lower respiratory diseases; Z82.49 Family history of ischemic heart disease and other diseases of the circulatory system; Z79.899 Other long term (current) drug therapy; Z20.822 Contact with and (suspected) exposure to COVID-19
CPT/HCPCS: 96376 ×3; 93005 ×2; 96361; 96374; 96375; 99285; 36415; 94640 ×2; 94760; 93306; 85379; 83880; 80061; 80053; 80048; 84443; 83690; 83735; 84484; 85025 ×2; 85610; 85730; 83036; 87635; 71046; 71275; G0378 ×3; J2060; J2270 ×4; Q9967

== ENCOUNTER 2021-01-24 06:06 | Day surgery (SDC) | payer OTHER ==
[2021-01-19 16:23] VITALS: BMI 30.5
[~2021-01-24 06:06] MED LIST changes: +ALPRAZolam 0.25 MG TAB PO PRN; +ALPRAZolam 0.5 MG TAB PO PRN; +HEPARIN SODIUM,PORCINE 10,000 UNIT in SODIUM CHLORIDE 0.9% 1,000 ML IRRIGATION PRN; +HEPARIN SODIUM,PORCINE 2,500 UNIT in SODIUM CHLORIDE 0.9% 250 ML IRRIGATION PRN; +NITROGLYCERIN SL TABS 0.4 MG TAB SUBLINGUAL PRN; -Pre Op ABX Message 1 EACH MISC MISCELLANE ONE; +SODIUM CHLORIDE 0.9% 1,000 ML in EMPTY BAG 1 BAG IV ONE
[2021-01-24 06:38] VITALS: TEMP 99
[2021-01-24] MEDS ORDERED: ATORVASTATIN 80 MG TAB PO ONE (07:00)
[2021-01-24] MEDS ORDERED: ASPIRIN 325 MG TAB PO ONE (07:00)
[2021-01-24] MEDS ORDERED: LIDOCAINE 1% INJ 10MG/ML (20 ML MDV) ONE (07:18)
[2021-01-24] MEDS ORDERED: fentaNYL (PF) 50 MCG/ML 2 ML AMP ONE (07:38)
[2021-01-24] MEDS ORDERED: fentaNYL (PF) 50 MCG/ML 2 ML AMP IVP ONE (07:41)
[2021-01-24] MEDS ORDERED: MIDAZOLAM 2 MG/2 ML VIAL IVP ONE (07:41)
[2021-01-24] MEDS ORDERED: LIDOCAINE 1% INJ 10MG/ML (20 ML MDV) SQ ONE (07:41)
[2021-01-24] MEDS ORDERED: IV FLUID CONTINUATION 900 ML IV ONE (07:45)
[2021-01-24] MEDS ORDERED: IOPAMIDOL-370 125ML BTL INJ ONE (07:49)
[2021-01-24] MEDS ORDERED: RX INFO: IV CONTRAST WAS GIVEN 1 EACH MISC MISCELLANE PRN (08:01)
[2021-01-24] MEDS ORDERED: SODIUM CHLORIDE 0.9% 1,000 ML IV SCH (08:15)
[2021-01-24] MEDS ORDERED: oxyCODONE-APAP 10-325MG 1 EACH TAB PO STA (08:18)
[2021-01-24 08:39] VITALS: RESP 16
--- NOTE | 2021-01-24 08:42 | CC ---
CARDIAC CATHETERIZATION REPORT LEFT HEART CATHETERIZATION: INDICATION: Recurrent unexplained chest pain. PROCEDURE NOTE: After obtaining informed consent, left heart catheterization, coronary angiogram are performed via the right femoral artery using standard Emerita catheters. Patient tolerated the procedure well without any obvious immediate complications. A femoral angiogram was performed and Angio-Seal was deployed for hemostasis. Patient received moderate conscious sedation. Total sedation time was 11 minutes. FINDINGS: 1. HEMODYNAMICS: Left ventricular end-diastolic pressure is 14-16 mm. There is no significant gradient across the aortic valve. 2. LEFT VENTRICULOGRAM: Left ventriculogram is not performed. 3. ANGIOGRAPHIC DATA: Left Main Coronary Artery: Left main coronary artery is a normal-sized vessel and is free of stenosis. Divides into left anterior descending coronary artery, and circumflex coronary artery. LAD and its branches, circumflex coronary artery and its branches are free of significant stenosis. Circumflex is a nondominant vessel. Right coronary artery is a large dominant vessel and is free of stenosis. CONCLUSION: 1. No significant coronary artery disease. 2. Patient's chest pain is probably noncardiac in origin. PLAN: I reviewed angiographic data with the patient and advised her on risk factor modification. MMODL / IJN: [id number] /
--- NOTE | 2021-01-24 08:52 | LTR ---
January 24, 2021 Re: Silvana Jenkins Dear Florencio: I performed cardiac catheterization on Silvana Jenkins. A detailed catheterization note is enclosed for your records. In brief, her cardiac catheterization did not reveal significant obstructive coronary artery disease and her management is going to be in the form of risk factor modification. Thank you for giving me the privilege to participate in the care of this pleasant lady. Sincerely, MD INGRID Sauer / ALEXIS: [id number] /
[2021-01-24 09:29] VITALS: BP 147/65; PULSE 65
== END 2021-01-24 12:50 | disposition home or self-care (01) ==
LOC: CATHCVL 06:06
PROVIDERS: ATTEND Internal Medicine Cardiovascular Disease
DX: R07.89 Other chest pain (principal); R07.2 Precordial pain; I10 Essential (primary) hypertension; M19.90 Unspecified osteoarthritis, unspecified site; R11.0 Nausea; F41.9 Anxiety disorder, unspecified; F17.210 Nicotine dependence, cigarettes, uncomplicated; Z79.891 Long term (current) use of opiate analgesic; Z79.899 Other long term (current) drug therapy; Z79.82 Long term (current) use of aspirin; Z88.1 Allergy status to other antibiotic agents; Z98.890 Other specified postprocedural states; Z82.49 Family history of ischemic heart disease and other diseases of the circulatory system
CPT/HCPCS: 93458; 81025; C1769 ×2; C1760; C1894; J2250; J2001; J3010; Q9967

== ENCOUNTER → 2021-02-03 | Outpatient (CLI) | payer OTHER ==
--- NOTE | 2021-02-03 15:38 | NM ---
Nuclear medicine hepatobiliary scan. HISTORY: Pain. DOSAGE: The patient received 1.6 micrograms of CCK and 5.2 mCi of Technetium 99m Choletec. FINDINGS: There is normal hepatic extraction. The gallbladder is seen by 50 minutes. There is bilia ry to bowel clearance by 20 minutes. Ejection fraction is 36%. IMPRESSION: 1. Ejection fraction 36% correlate for borderline biliary dyskinesia.
== END | disposition home or self-care (01) ==
LOC: RADNMMAIN 12:52
PROVIDERS: ATTEND Surgery
DX: K82.8 Other specified diseases of gallbladder (principal)
CPT/HCPCS: 78227; A9537; J2805

== ENCOUNTER 2021-02-17 07:17 | Day surgery (SDC) | payer OTHER ==
[2021-02-13 14:58] VITALS: BMI 30.5
[~2021-02-17 07:17] MED LIST changes: +ACETAMINOPHEN TAB 500 MG TAB PO PRN; -ALPRAZolam 0.25 MG TAB PO PRN; -ALPRAZolam 0.5 MG TAB PO PRN; +DEXAMETHASONE SOD PHOSPHATE 4 MG/ML 1 ML VIAL IV ONE; -HEPARIN SODIUM,PORCINE 10,000 UNIT in SODIUM CHLORIDE 0.9% 1,000 ML IRRIGATION PRN; -HEPARIN SODIUM,PORCINE 2,500 UNIT in SODIUM CHLORIDE 0.9% 250 ML IRRIGATION PRN; +HEPARIN SODIUM,PORCINE/PF 5,000 UNIT/0.5 ML SYRINGE SQ PRN; +HYDROmorphone 0.5 MG/0.5 ML SYRINGE IVP PRN; -NITROGLYCERIN SL TABS 0.4 MG TAB SUBLINGUAL PRN; +ONDANSETRON 4 MG/2 ML VIAL IVP ONE; +SCOPOLAMINE 1.5MG/72HR PATCH TRANSDERM ONE; -SODIUM CHLORIDE 0.9% 1,000 ML in EMPTY BAG 1 BAG IV ONE
[2021-02-17] MEDS: LACTATED RINGERS 1,000 ML IV SCH ×2 (07:42→09:41)
--- NOTE | 2021-02-17 09:26 | P.GSHP ---
History of Present Illness H&P Date: 02/17/21 Chief Complaint: Right upper quadrant pain This a 45-year-old female who presents today for laparoscopic cholecystectomy. Patient's liquid cement quadrant pain. Patient's recent HIDA scan shows evidence of decreased ejection fraction consistent with biliary dyskinesia. Past Medical History Past Medical History: Chest Pain / Angina, GERD/Reflux, Osteoarthritis (OA), Pneumonia, Rheumatoid Arthritis (RA), Sleep Apnea/CPAP/BIPAP Additional Past Medical History / Comment(s): Chronic neck and back pain, fluid in spine since cervical fusion, numbness and tingling bilateral hands, carpal tunnel, states Sjorgren's or lupus-Dr not sure., states positive for auto immune , past elevated LFT, bronchitis and pneumonia yearly, AUDRA-does not tolerate CPap-wears oxygen at HS only, constant diarrhea, states nausea and vomiting., states hospitalized 12/28 -12/30/20 for sob and chest pain., states she passed out in the shower on 12/27/20 and hit her head. History of Any Multi-Drug Resistant Organisms: None Reported Past Surgical History: Back Surgery, Breast Surgery, Section, Heart Catheterization, Tonsillectomy, Tubal Ligation, Uterine Ablation Additional Past Surgical History / Comment(s): D&C, cervical fusion, L breast benign biopsy, colonoscopy. EGD Past Anesthesia/Blood Transfusion Reactions: Previous Problems w/ Anesthesia, Family History of Problems w/ Anesthesia Additional Past Anesthesia/Blood Transfusion Reaction / Comment(s): states blood pressure dropped. pts mother has difficulty wAKing up and PONV Smoking Status: Current every day smoker - Past Family History Father Family Medical History: CVA/TIA Additional Family Medical History / Comment(s): Father from emphysema in his 60s. Mother Family Medical History: Hypertension Medications and Allergies Home Medications Medication Instructions Recorded Confirmed Type Albuterol Inhaler [Ventolin Hfa 2 puff INHALATION RT-Q4H PRN 02/15/20 02/17/21 History Inhaler] Propranolol HCl 80 mg PO BID 02/15/20 02/17/21 History Pantoprazole [Protonix] 40 mg PO BID 10/15/20 02/17/21 History traZODone HCL 50 mg PO HS 10/15/20 02/17/21 History Sertraline HCl [Zoloft] 100 mg PO BID 12/28/20 02/17/21 History oxyCODONE HCL/ACETAMINOPHEN 1 tab PO TID PRN 12/28/20 02/17/21 History [Percocet 10-325 mg] Allergies Allergy/AdvReac Type Severity Reaction Status Date / Time cephalexin [From Keflex] Allergy Rash/Hives Verified 02/17/21 07:38 alprazolam [From Xanax] AdvReac Unknown STATES Verified 02/17/21 07:38 EFFECTS STAY WITH HER FOR DAYS. Surgical - Exam Vital Signs Temp Pulse Resp BP Pulse Ox 96.7 F L 90 16 143/92 98 02/17/21 07:35 02/17/21 07:35 02/17/21 07:35 02/17/21 07:35 02/17/21 07:35 - General well developed, well nourished, no distress - Eyes PERRL - ENT normal pinna - Neck no masses - Respiratory normal expansion - Cardiovascular Rhythm: regular - Abdomen Abdomen: soft, non tender Assessment and Plan Assessment: Chronic close size. We'll perform laparoscopic cholecystectomy
[2021-02-17] MEDS ORDERED: CLINDAMYCIN 600 MG in DEXTROSE 5% IN WATER 50 ML IVPB STA ×2 (09:36)
[2021-02-17] MEDS ORDERED: fentaNYL (PF) 50 MCG/ML 2 ML AMP ONE (09:42)
[2021-02-17] MEDS ORDERED: ROCURONIUM 10 MG/ML (5 ML VIAL) IV ONE (09:42)
[2021-02-17] MEDS ORDERED: GLYCOPYRROLATE 0.2 MG/ML 2 ML VIAL ONE (09:42)
[2021-02-17] MEDS ORDERED: NEOSTIGMINE 1 MG/ML 10 ML VIAL ONE (09:42)
[2021-02-17] MEDS ORDERED: HYDROmorphone (PF) 1 MG/ML ONE (09:42)
[2021-02-17] MEDS ORDERED: SUCCINYLCHOLINE CHLORIDE 100 MG/5 ML SYR IV ONE (09:42)
[2021-02-17] MEDS ORDERED: KETOROLAC 15 MG/ML 1 ML VIAL ONE (09:42)
[2021-02-17] MEDS ORDERED: PROPOFOL 10 MG/ML 20 ML VIAL IV ONE (09:42)
[2021-02-17] MEDS ORDERED: LIDOCAINE 1% INJ 10MG/ML (20 ML MDV) ONE (09:42)
[2021-02-17] MEDS ORDERED: MIDAZOLAM 2 MG/2 ML VIAL ONE (09:42)
[2021-02-17] MEDS ORDERED: SODIUM CHLORIDE 0.9% 100 ML with CLINDAMYCIN 600 MG IV ONE ×2 (09:44)
[2021-02-17] MEDS ORDERED: LACTATED RINGERS 1,000 ML IV ONE (09:59)
[2021-02-17] MEDS ORDERED: BUPIVACAIN-EPI 0.5%-1:200,000 30 ML VIAL SQ ONE (10:03)
--- NOTE | 2021-02-17 10:33 | P.OP ---
Date of Procedure: 02/17/21 Preoperative Diagnosis: Cholecystitis Postoperative Diagnosis: Cholecystitis Procedure(s) Performed: Laparoscopic cholecystectomy Anesthesia: DELON Surgeon: Ralph Robertson Estimated Blood Loss (ml): 10 Pathology: other (Gallbladder) Condition: stable Disposition: PACU Description of Procedure: The patient was placed on the operating table. The patient received a general endotracheal tube anesthesia. The patients abdomen was prepped and draped in the usual sterile fashion. Through an infraumbilical stab incision, the fascia of the anterior abdominal wall was grasped with a pair of Kochers and then the Veress needle was placed in the peritoneal cavity. Position of the Veress needle was confirmed with positive drop test. The abdomen was then insufflated. After adequate insufflation, the 10 mm trocar was placed in the peritoneal cavity. Following this the laparoscope was placed in the peritoneal cavity. The patient was placed in the head-up, right side up position and then a 5 mm trocar was placed in the right lateral and right subcostal position under direct visualization. A 8 mm trocar was placed in the epigastric position. The gallbladder was grasped in the fundus and infundibulum. Traction on the gallbladder was placed in the lateral and the cephalad positions. The triangle of Calot was visualized.. The cystic duct was bluntly dissected until the union of the cystic duct and common bile duct was seen. A critical view of safety was achieved. The cystic duct was then divided and sealed with the Harmonic scissors. A PDS Endoloop was then placed throughout the cystic duct stump. The cystic artery divided and sealed with the Harmonic scissors. The gallbladder was then removed from the liver bed using Harmonic scissors. The gallbladder was then extracted through the epigastric port site. Operative field was checked for any bleeding spots and Harmonic scissors was used to coagulate the liver bed. The abdomen was irrigated. The trocars were removed. The skin was closed using interrupted 3-0 Vicryl suture. Dermabond dressing were applied. The patient tolerated the procedure well.
[2021-02-17 10:39] VITALS: RESP 18; TEMP 97.9
[2021-02-17 12:07] VITALS: BP 142/83; PULSE 69
== END 2021-02-17 12:31 | disposition home or self-care (01) ==
LOC: OR 07:17
PROVIDERS: ATTEND Surgery
DX: K81.1 Chronic cholecystitis (principal); K21.9 Gastro-esophageal reflux disease without esophagitis; M19.90 Unspecified osteoarthritis, unspecified site; M06.9 Rheumatoid arthritis, unspecified; G89.29 Other chronic pain; M54.2 Cervicalgia; M54.9 Dorsalgia, unspecified; G56.00 Carpal tunnel syndrome, unspecified upper limb; D89.89 Other specified disorders involving the immune mechanism, not elsewhere classified; G47.33 Obstructive sleep apnea (adult) (pediatric); R19.7 Diarrhea, unspecified; I10 Essential (primary) hypertension; J44.9 Chronic obstructive pulmonary disease, unspecified; F17.210 Nicotine dependence, cigarettes, uncomplicated; Z87.01 Personal history of pneumonia (recurrent); Z98.1 Arthrodesis status; Z87.09 Personal history of other diseases of the respiratory system; Z87.898 Personal history of other specified conditions; Z98.890 Other specified postprocedural states; Z90.89 Acquired absence of other organs; Z98.51 Tubal ligation status; Z91.89 Other specified personal risk factors, not elsewhere classified; Z79.899 Other long term (current) drug therapy; Z79.891 Long term (current) use of opiate analgesic; Z88.1 Allergy status to other antibiotic agents; Z88.8 Allergy status to other drugs, medicaments and biological substances; Z84.89 Family history of other specified conditions; Z82.3 Family history of stroke; Z82.5 Family history of asthma and other chronic lower respiratory diseases; Z82.49 Family history of ischemic heart disease and other diseases of the circulatory system
CPT/HCPCS: 47562; 81025; 88304; J2250; J1100; J2710; J2405; J2001; J3010; J1170; J1885; J0330; J2704; J1644

== ENCOUNTER → 2021-03-30 | Outpatient (CLI) | payer OTHER ==
[2021-03-30 14:55] LABS: Basophils # (A) 0.1 k/uL (0-0.2); Basophils % (A) 1 %; Eosinophils # (A) 0.1 k/uL (0-0.7); Eosinophils % (A) 1 %; HCT 42.3 % (34.0-46.0); HGB 15.1 gm/dL (11.4-16.0); Lymphocytes % (A) 23 %; MCH 34.6 pg (25.0-35.0); MCHC 35.6 g/dL (31.0-37.0); MCV 97.1 fL (80.0-100.0); Mean Platelet Volume 8.2; Monocytes # (A) 0.5 k/uL (0-1.0); Monocytes % (A) 6 %; Neutrophils # (A) 5.9 k/uL (1.3-7.7); Neutrophils % (A) 68 %; Platelet Count 212 k/uL (150-450); RBC 4.36 m/uL (3.80-5.40); RDW 12.5 % (11.5-15.5); WBC 8.7 k/uL (3.8-10.6)
== END | disposition home or self-care (01) ==
LOC: LABPAT 13:55
PROVIDERS: ATTEND Surgery
DX: Z01.812 Encounter for preprocedural laboratory examination (principal); K21.00 Gastro-esophageal reflux disease with esophagitis, without bleeding; D64.9 Anemia, unspecified; F17.200 Nicotine dependence, unspecified, uncomplicated
CPT/HCPCS: 36415; 85025

== ENCOUNTER 2021-04-07 06:41 | Observation (INO) | payer OTHER ==
[~2021-04-07 06:41] MED LIST changes: -HYDROmorphone 0.5 MG/0.5 ML SYRINGE IVP PRN; +LACTATED RINGERS 1,000 ML IV SCH; +LIDOCAINE 1% (10MG/ML) FOR IV START INTRADERMA PRN; -SCOPOLAMINE 1.5MG/72HR PATCH TRANSDERM ONE
[2021-04-07] MEDS ORDERED: HYDROmorphone 0.5 MG/0.5 ML SYRINGE IVP PRN (07:00)
[2021-04-07] MEDS ORDERED: NEOSTIGMINE 1 MG/ML 10 ML VIAL ONE (07:46)
[2021-04-07] MEDS ORDERED: KETOROLAC 15 MG/ML 1 ML VIAL ONE (07:46)
[2021-04-07] MEDS ORDERED: LIDOCAINE 1% INJ 10MG/ML (20 ML MDV) ONE (07:46)
[2021-04-07] MEDS ORDERED: GLYCOPYRROLATE 0.2 MG/ML 2 ML VIAL ONE (07:46)
[2021-04-07] MEDS ORDERED: PROPOFOL 10 MG/ML 20 ML VIAL IV ONE (07:46)
[2021-04-07] MEDS ORDERED: SUCCINYLCHOLINE CHLORIDE 100 MG/5 ML SYR IV ONE (07:46)
[2021-04-07] MEDS ORDERED: fentaNYL (PF) 50 MCG/ML 2 ML AMP ONE (07:46)
[2021-04-07] MEDS ORDERED: MIDAZOLAM 2 MG/2 ML VIAL ONE (07:46)
[2021-04-07] MEDS ORDERED: ROCURONIUM 10 MG/ML (5 ML VIAL) IV ONE (07:46)
[2021-04-07] MEDS ORDERED: BUPIVACAIN-EPI 0.5%-1:200,000 30 ML VIAL SQ ONE (08:33)
[2021-04-07] MEDS ORDERED: ONDANSETRON 4 MG/2 ML VIAL IVP PRN (08:56)
--- NOTE | 2021-04-07 09:00 | P.GSHP ---
History of Present Illness H&P Date: 04/07/21 Chief Complaint: GERD This a 45-year-old female referred from Dr. Florencio Teague. MThe patient has had long-standing problems with reflux esophagitis. The patient underwent recent EGD is found have evidence of esophagitis. Patient has been well informed on the procedure of laparoscopic Gregorio fundoplication. The patient is aware the risk of the conversion to the open procedure, risk of injury to the stomach, liver and spleen. The patient is also a risk of recurrent GERD and dysphagia symptoms. The patient understands there is a postoperative diet of full liquids for 2 weeks after surgery. Past Medical History Past Medical History: Chest Pain / Angina, GERD/Reflux, Osteoarthritis (OA), Pneumonia, Rheumatoid Arthritis (RA), Sleep Apnea/CPAP/BIPAP Additional Past Medical History / Comment(s): Chronic neck and back pain, fluid in spine since cervical fusion, numbness and tingling bilateral hands, carpal tunnel, states Sjorgren's or lupus-Dr not sure., states positive for auto immune , past elevated LFT, bronchitis and pneumonia yearly, AUDRA-does not tolerate CPap-wears oxygen at 1 L NC HS only-being reevaluated on 04-04-21 for cpap and breathing, constant diarrhea, states nausea and vomiting., states hospitalized 12/28 -12/30/20 for sob and chest pain., states she passed out in the shower on 12/27/20 and hit her head. History of Any Multi-Drug Resistant Organisms: None Reported Past Surgical History: Back Surgery, Breast Surgery, Section, Heart Catheterization, Tonsillectomy, Tubal Ligation, Uterine Ablation Additional Past Surgical History / Comment(s): D&C, cervical fusion, L breast benign biopsy, colonoscopy. EGD Past Anesthesia/Blood Transfusion Reactions: Previous Problems w/ Anesthesia, Family History of Problems w/ Anesthesia Additional Past Anesthesia/Blood Transfusion Reaction / Comment(s): states blood pressure dropped. pts mother has difficulty wAKing up and PONV.,no hx blood transfusion Smoking Status: Current every day smoker - Past Family History Father Family Medical History: CVA/TIA Additional Family Medical History / Comment(s): Father from emphysema in his 60s. Mother Family Medical History: Hypertension Medications and Allergies Home Medications Medication Instructions Recorded Confirmed Type Albuterol Inhaler [Ventolin Hfa 2 puff INHALATION RT-Q4H PRN 02/15/20 04/07/21 History Inhaler] Pantoprazole [Protonix] 40 mg PO QAM 10/15/20 04/07/21 History traZODone HCL 50 mg PO HS 10/15/20 04/07/21 History Sertraline HCl [Zoloft] 100 mg PO BID 12/28/20 04/07/21 History oxyCODONE HCL/ACETAMINOPHEN 1 tab PO TID PRN 12/28/20 04/07/21 History [Percocet 10-325 mg] Allergies Allergy/AdvReac Type Severity Reaction Status Date / Time cephalexin [From Keflex] Allergy Rash/Hives Verified 04/07/21 07:12 alprazolam [From Xanax] AdvReac Unknown STATES Verified 04/07/21 07:12 EFFECTS STAY WITH HER FOR DAYS. Surgical - Exam Vital Signs Temp Pulse Resp BP Pulse Ox 97.9 F 95 16 100/51 95 04/07/21 07:23 04/07/21 07:23 04/07/21 07:23 04/07/21 07:23 04/07/21 07:23 - General well developed, well nourished, no distress - Eyes PERRL - ENT normal pinna - Neck no masses - Respiratory normal expansion - Cardiovascular Rhythm: regular - Abdomen Abdomen: soft, non tender Assessment and Plan Assessment: GERD. We'll perform laparoscopic Gregorio fundal plication
--- NOTE | 2021-04-07 09:01 | P.OP ---
Date of Procedure: 04/07/21 Preoperative Diagnosis: GERD Postoperative Diagnosis: GERD Procedure(s) Performed: Laparoscopic Gregorio fundoplication Anesthesia: DELON Surgeon: Ralph Robertson Estimated Blood Loss (ml): 5 Pathology: none sent Condition: stable Disposition: PACU Description of Procedure: The patient was placed on the operating table in the supine position. The patient received general anesthesia. And was placed in dorsal lithotomy position. The patient was prepped and draped in the usual sterile fashion. The skin incision sites were anesthetized with 1% local Xylocaine. The skin was incised in the left periumbilical area and then using a blade less 5 mm trocar under direct visualization panel cavity was entered. After adequate insufflation the laparoscope was then placed into the peritoneal cavity. Next a 5 mm trochars placed in the right epigastric position. Another 5 millimeter trocar the right lateral position. Another 5 millimeter trocar in the left lateral position a 5 mm trocar is placed in the left epigastric position. And then the initial 5 mm trocar was exchanged for a 10 mm trocar. The left lateral lobe liver was retracted. The hernia was seen. The crural defect was then dissected using the Harmonic scissors device. A 360 crural dissection was per formed the esophagus stomach was reduced back into the peritoneal Cavity. The crural defect was then closed using 2-0 Ethibond suture. Next the fundus of the stomach was mobilized using the Van Meter scissors device. and then a 59-[place]izen [place] bougie dilator was placed oropharynx passed into the esophagus and stomach the fundal plication wrap was then performed by grasping the fundus posteriorly and bringing it around the esophagus and stomach fundoplication was then performed using 2-0 Ethibond suture. Care was taken that the fundal location rested over top of the intra-abdominal esophagus. There was no injury seen to the stomach or esophagus. The dilator was then withdrawn. The abdomen was irrigated there is no bleeding seen. The trochars were then withdrawn and then skin incision sites were closed using 3-0 Monocryl suture Steri-Strips are applied. Patient thought procedure well and sent to recovery room in stable condition.
[2021-04-07] MEDS ORDERED: LACTATED RINGERS 1,000 ML IV ONE (09:04)
[2021-04-07] MEDS: HYDROmorphone 1 MG/ML 1 ML SYRINGE IVP PRN ×4 (11:34→21:16)
[2021-04-07 12:05] VITALS: BMI 30.9
[2021-04-07] MEDS: D5-0.45% NACL WITH KCL 20MEQ/L 1,000 ML IV SCH ×2 (12:25→21:18)
--- NOTE | 2021-04-07 15:35 | FL ---
Single contrast esophagram EXAMINATION TYPE: FL esophagus cervic/pharynx DATE OF EXAM: 04/07/2021 3:21 PM COMPARISON: NONE CLINICAL HISTORY: Status post Ld fundoplication The patient ingested contrast without difficulty or delay. Noted are changes of Ld fundoplicatio n. There is no evidence for leak or obstruction. Small amount of residual contrast within the distal esophagus. IMPRESSION: Post-surgical change of Ld fundoplication without evidence for leak or obstruction. History name a few.
[2021-04-07] MEDS ORDERED: oxyCODONE-APAP 10-325MG 1 EACH TAB PO PRN (21:43)
[2021-04-07] MEDS: PANTOPRAZOLE 40 MG TABLET PO SCH (22:23)
[2021-04-08] MEDS: HYDROmorphone 1 MG/ML 1 ML SYRINGE IVP PRN ×3 (00:29→08:32)
[2021-04-08 01:47] VITALS: PULSE 76
[2021-04-08] MEDS: D5-0.45% NACL WITH KCL 20MEQ/L 1,000 ML IV SCH (04:08)
[2021-04-08] MEDS: PANTOPRAZOLE 40 MG TABLET PO SCH (08:32)
[2021-04-08 08:44] VITALS: BP 111/74; RESP 18; TEMP 98.5
[2021-04-08] MEDS ORDERED: ENOXAPARIN 40 MG/0.4 ML SYRINGE SQ SCH (09:00)
[2021-04-08] MEDS ORDERED: SERTRALINE 100 MG TAB PO SCH (09:00)
[2021-04-08] MEDS ORDERED: PANTOPRAZOLE 40 MG TABLET PO SCH (09:00)
--- NOTE | 2021-04-08 11:25 | P.DS ---
Providers Date of admission: 04/07/21 22:22 Expected date of discharge: 04/08/21 Attending physician: Ralph Robertson Primary care physician: [facility] Course: Patient minute yesterday for Gregorio fundoplication. Postoperatively the patient has done well. Has minimal pain at this time. Tolerating liquids. She would like to go home. We'll discharge. Follow-up with Dr. Robertson in 1 week. Plan - Discharge Summary Discharge Rx Participant: Yes New Discharge Prescriptions: New Ibuprofen [Motrin] 600 mg PO Q6HR PRN #40 tab PRN Reason: Pain Docusate [Colace] 100 mg PO BID #20 capsule Acetaminophen Tab [Tylenol] 650 mg PO Q6H #30 tab No Action Albuterol Inhaler [Ventolin Hfa Inhaler] 2 puff INHALATION RT-Q4H PRN PRN Reason: Shortness Of Breath traZODone HCL 50 mg PO HS Pantoprazole [Protonix] 40 mg PO QAM Sertraline HCl [Zoloft] 100 mg PO BID oxyCODONE HCL/ACETAMINOPHEN [Percocet 10-325 mg] 1 tab PO TID PRN PRN Reason: Pain Discharge Medication List Albuterol Inhaler [Ventolin Hfa Inhaler] 2 puff INHALATION RT-Q4H PRN 02/15/20 [History] Pantoprazole [Protonix] 40 mg PO QAM 10/15/20 [History] traZODone HCL 50 mg PO HS 10/15/20 [History] Sertraline HCl [Zoloft] 100 mg PO BID 12/28/20 [History] oxyCODONE HCL/ACETAMINOPHEN [Percocet 10-325 mg] 1 tab PO TID PRN 12/28/20 [History] Acetaminophen Tab [Tylenol] 650 mg PO Q6H #30 tab 04/07/21 [Rx] Docusate [Colace] 100 mg PO BID #20 capsule 04/07/21 [Rx] Ibuprofen [Motrin] 600 mg PO Q6HR PRN #40 tab 04/07/21 [Rx] Follow up Appointment(s)/Referral(s): Ralph Robertson MD [STAFF PHYSICIAN] - 2 Weeks Activity/Diet/Wound Care/Special Instructions: Patient's home meds in Pharmacy Gregorio diet as instructed by laborer pipelines. please follow the diet sheet you are given no heavy lifting, pushing or pulling until recheck. May shower but no tub baths, soaks or hot tubs. Monitor puncture sites. Call you Dr with any fever, chills, increased pain not controlled with your pain meds, increased redness or discolored drainage from puncture sites, diffliculty swallowing or any concerns. Continue to use you incentive spirometery at home.
[2021-04-08] MEDS ORDERED: traZODone HCL 50 MG TAB PO SCH (21:00)
== END 2021-04-08 12:00 | disposition home or self-care (01) ==
LOC: OR 06:41 → 6PED 09:46 → OR 22:22
PROVIDERS: ADMIT Surgery; ATTEND Surgery
DX: K21.00 Gastro-esophageal reflux disease with esophagitis, without bleeding (principal); D89.89 Other specified disorders involving the immune mechanism, not elsewhere classified; M06.9 Rheumatoid arthritis, unspecified; G47.33 Obstructive sleep apnea (adult) (pediatric); M19.90 Unspecified osteoarthritis, unspecified site; J45.909 Unspecified asthma, uncomplicated; R13.10 Dysphagia, unspecified; G56.03 Carpal tunnel syndrome, bilateral upper limbs; G89.29 Other chronic pain; M54.2 Cervicalgia; M54.9 Dorsalgia, unspecified; F17.200 Nicotine dependence, unspecified, uncomplicated; Z79.899 Other long term (current) drug therapy; Z88.1 Allergy status to other antibiotic agents; Z88.8 Allergy status to other drugs, medicaments and biological substances; Z98.1 Arthrodesis status; Z98.51 Tubal ligation status; Z98.890 Other specified postprocedural states; Z98.891 History of uterine scar from previous surgery; Z87.01 Personal history of pneumonia (recurrent); Z82.5 Family history of asthma and other chronic lower respiratory diseases; Z82.49 Family history of ischemic heart disease and other diseases of the circulatory system; Z82.3 Family history of stroke; Z84.89 Family history of other specified conditions
CPT/HCPCS: 81025; 74210; 43280; G0378 ×2; J2250; J1100; J2710; J0690; J2405; J2001; J1650; J3010; J1170 ×2; J1885; J0330; J2704; Q9967; J1644

== ENCOUNTER 2021-05-25 09:17 | Day surgery (SDC) | payer OTHER ==
[2021-05-24 11:33] VITALS: BMI 26.7
[~2021-05-25 09:17] MED LIST changes: -ACETAMINOPHEN TAB 500 MG TAB PO PRN; -DEXAMETHASONE SOD PHOSPHATE 4 MG/ML 1 ML VIAL IV ONE; -HEPARIN SODIUM,PORCINE/PF 5,000 UNIT/0.5 ML SYRINGE SQ PRN; -LIDOCAINE 1% (10MG/ML) FOR IV START INTRADERMA PRN; -ONDANSETRON 4 MG/2 ML VIAL IVP ONE
[2021-05-25 09:50] VITALS: TEMP 98.2
[2021-05-25] MEDS ORDERED: LIDOCAINE 1% (10MG/ML) FOR IV START INTRADERMA ONE (09:52)
[2021-05-25] MEDS ORDERED: LIDOCAINE 1% INJ 10MG/ML (20 ML MDV) ONE (10:34)
[2021-05-25] MEDS ORDERED: PROPOFOL 10 MG/ML 20 ML VIAL IV ONE (10:34)
--- NOTE | 2021-05-25 10:37 | P.GSHP ---
History of Present Illness H&P Date: 05/25/21 Chief Complaint: GERD This a 41 crural female with complaints of some GERD and dysphagia. She'll stay for EGD. Past Medical History Past Medical History: Chest Pain / Angina, GERD/Reflux, Osteoarthritis (OA), Pneumonia, Rheumatoid Arthritis (RA), Sleep Apnea/CPAP/BIPAP Additional Past Medical History / Comment(s): Chronic neck and back pain, fluid in spine since cervical fusion, numbness and tingling bilateral hands, carpal tunnel, states Sjorgren's or lupus-Dr not sure., states positive for auto immune , past elevated LFT, bronchitis and pneumonia yearly, AUDRA-does not tolerate CPap-wears oxygen at HS only, constant diarrhea, states nausea and vomiting., states hospitalized 12/28 -12/30/20 for sob and chest pain., states she passed out in the shower on 12/27/20 and hit her head. HAVING PROBLEMS SWALLOWING History of Any Multi-Drug Resistant Organisms: None Reported Past Surgical History: Back Surgery, Breast Surgery, Section, Heart Catheterization, Tonsillectomy, Tubal Ligation, Uterine Ablation Additional Past Surgical History / Comment(s): D&C, cervical fusion, L breast benign biopsy, colonoscopy. EGD Past Anesthesia/Blood Transfusion Reactions: Previous Problems w/ Anesthesia, Family History of Problems w/ Anesthesia Additional Past Anesthesia/Blood Transfusion Reaction / Comment(s): states blood pressure dropped. pts mother has difficulty wAKing up and PONV Smoking Status: Current every day smoker - Past Family History Father Family Medical History: CVA/TIA Additional Family Medical History / Comment(s): Father from emphysema in his 60s. Mother Family Medical History: Hypertension Medications and Allergies Home Medications Medication Instructions Recorded Confirmed Type Pantoprazole [Protonix] 40 mg PO QAM 10/15/20 05/25/21 History traZODone HCL 50 mg PO HS 10/15/20 05/25/21 History Sertraline HCl [Zoloft] 100 mg PO BID 12/28/20 05/25/21 History oxyCODONE HCL/ACETAMINOPHEN 1 tab PO TID PRN 12/28/20 05/25/21 History [Percocet 10-325 mg] Acetaminophen Tab [Tylenol] 650 mg PO Q6H #30 tab 04/07/21 05/25/21 Rx Ibuprofen [Motrin] 600 mg PO Q6HR PRN #40 tab 04/07/21 05/25/21 Rx Albuterol Sulfate [Proair Hfa] 2 puff INHALATION DAILY PRN 05/24/21 05/25/21 History Allergies Allergy/AdvReac Type Severity Reaction Status Date / Time cephalexin [From Keflex] Allergy Rash/Hives Verified 05/25/21 09:46 alprazolam [From Xanax] AdvReac Unknown STATES Verified 05/25/21 09:46 EFFECTS STAY WITH HER FOR DAYS. Surgical - Exam Vital Signs Temp Pulse Resp BP Pulse Ox 98.2 F 86 18 124/58 98 05/25/21 09:48 05/25/21 09:48 05/25/21 09:48 05/25/21 09:48 05/25/21 09:48 - General well developed, well nourished, no distress - Eyes PERRL - ENT normal pinna - Neck no masses - Respiratory normal expansion - Cardiovascular Rhythm: regular - Abdomen Abdomen: soft, non tender Assessment and Plan Assessment: GERD, dysphagia. We'll perform EGD
--- NOTE | 2021-05-25 10:48 | P.OP ---
Date of Procedure: 05/25/21 Preoperative Diagnosis: Dysphagia Postoperative Diagnosis: No evidence of GE junction stricture Procedure(s) Performed: GERD with balloon dilatation Anesthesia: MAC Surgeon: Ralph Robertson Pathology: none sent Condition: stable Disposition: PACU Description of Procedure: The patient's placed on the endoscopy table in the lateral position. She received IV sedation. The gastroscope placed oropharynx past esophagus and into the stomach. The scope was placed through the pylorus the first and second po rtion of the duodenum appeared normal. Scope was then brought back the antrum this appeared normal. Scope retroflexed there is known to any recurrent hiatal hernia. The GE junction was at 47 is. The patient's symptoms dysphagia 20 mm balloon was placed across the GE junction. There was no obvious stricture. The balloon was withdrawn. The scope was withdrawn for patient.
[2021-05-25 10:51] VITALS: RESP 16
[2021-05-25 11:04] VITALS: BP 122/80; PULSE 77
== END 2021-05-25 11:29 | disposition home or self-care (01) ==
LOC: ORWHC2ENDO 09:17
PROVIDERS: ATTEND Surgery
DX: K44.9 Diaphragmatic hernia without obstruction or gangrene (principal); R13.10 Dysphagia, unspecified; K21.9 Gastro-esophageal reflux disease without esophagitis; M19.90 Unspecified osteoarthritis, unspecified site; M06.9 Rheumatoid arthritis, unspecified; Z87.01 Personal history of pneumonia (recurrent); G47.33 Obstructive sleep apnea (adult) (pediatric); G89.29 Other chronic pain; M54.9 Dorsalgia, unspecified; M54.2 Cervicalgia; Z98.1 Arthrodesis status; Z98.890 Other specified postprocedural states; G56.03 Carpal tunnel syndrome, bilateral upper limbs; Z99.81 Dependence on supplemental oxygen; Z98.891 History of uterine scar from previous surgery; Z90.89 Acquired absence of other organs; Z98.51 Tubal ligation status; F17.200 Nicotine dependence, unspecified, uncomplicated; Z83.6 Family history of other diseases of the respiratory system; Z82.3 Family history of stroke; Z82.49 Family history of ischemic heart disease and other diseases of the circulatory system; Z79.899 Other long term (current) drug therapy; Z88.1 Allergy status to other antibiotic agents; Z88.8 Allergy status to other drugs, medicaments and biological substances
CPT/HCPCS: 81025; 43249; J2001; J2704

== ENCOUNTER 2021-08-17 07:28 | Emergency (ER) | payer OTHER ==
[2021-08-17 07:35] VITALS: TEMP 97.8
[2021-08-17] MEDS ORDERED: KETOROLAC 15 MG/ML 1 ML VIAL IVP STA (07:48)
--- NOTE | 2021-08-17 07:52 | ED ---
Chest Pain HPI - General Chief Complaint: Chest Pain Stated Complaint: left rib pain Time Seen by Provider: 08/17/21 07:35 Source: patient, RN notes reviewed, old records reviewed Mode of arrival: ambulatory Limitations: no limitations - History of Present Illness Initial Comments: 45-year-old female history of multiple recent surgeries who presents with one week of left-sided rib pain she states is got really bad over last couple days. She does have COPD she states she's been coughing somewhat. She denies any overt fevers chills or sweats no phlegm production. No trauma is had sharp pain 8/10 in severity. Gets worse with movement and deep breathing. MD Complaint: chest pain - Related Data Home Medications Medication Instructions Recorded Confirmed Pantoprazole [Protonix] 40 mg PO QAM 10/15/20 07/05/21 traZODone HCL 50 mg PO HS 10/15/20 07/05/21 Sertraline HCl [Zoloft] 100 mg PO BID 12/28/20 07/05/21 oxyCODONE HCL/ACETAMINOPHEN 1 tab PO TID PRN 12/28/20 07/05/21 [Percocet 10-325 mg] Albuterol Sulfate [Proair Hfa] 2 puff INHALATION DAILY PRN 05/24/21 07/05/21 Previous Rx's Medication Instructions Recorded Acetaminophen Tab [Tylenol] 650 mg PO Q6H #30 tab 04/07/21 Ibuprofen [Motrin] 600 mg PO Q6HR PRN #40 tab 04/07/21 Ibuprofen 800 mg PO Q6HR PRN #20 tablet 08/17/21 Allergies Allergy/AdvReac Type Severity Reaction Status Date / Time cephalexin [From Keflex] Allergy Rash/Hives Verified 08/17/21 07:35 alprazolam [From Xanax] AdvReac Unknown STATES Verified 08/17/21 07:35 EFFECTS STAY WITH HER FOR DAYS. Review of Systems ROS Statement: Those systems with pertinent positive or pertinent negative responses have been documented in the HPI. ROS Other: All systems not noted in ROS Statement are negative. EKG Findings - EKG Results: EKG: interpreted by REE WNL, sinus rhythm, normal axis, normal QRS, normal ST/T, no acute changes (Normal sinus rhythm a 72 MT interval 124 QRS duration 86 daily since QTC 390/427 this is normal. EKG) Past Medical History Past Medical History: Chest Pain / Angina, COPD, GERD/Reflux, Osteoarthritis (OA), Pneumonia, Rheumatoid Arthritis (RA), Sleep Apnea/CPAP/BIPAP Additional Past Medical History / Comment(s): Chronic neck and back pain, fluid in spine since cervical fusion, numbness and tingling bilateral hands, carpal tunnel, states Sjorgren's or lupus-Dr not sure., states positive for auto immune , past elevated LFT, bronchitis and pneumonia yearly, AUDRA-does not tolerate CPap-wears oxygen at HS only, constant diarrhea, states nausea and vomiting., states hospitalized 12/28 -12/30/20 for sob and chest pain., states she passed out in the shower on 12/27/20 and hit her head. HAVING PROBLEMS SWALLOWING History of Any Multi-Drug Resistant Organisms: None Reported Past Surgical History: Back Surgery, Breast Surgery, Section, Heart Catheterization, Tonsillectomy, Tubal Ligation, Uterine Ablation Additional Past Surgical History / Comment(s): D&C, cervical fusion, L breast benign biopsy, colonoscopy. EGD, HIATAL HERNIA REPAIR Past Anesthesia/Blood Transfusion Reactions: Previous Problems w/ Anesthesia, Family History of Problems w/ Anesthesia Additional Past Anesthesia/Blood Transfusion Reaction / Comment(s): states blood pressure dropped. pts mother has difficulty wAKing up and PONV Past Psychological History: Anxiety, Depression, Panic Disorder Smoking Status: Current every day smoker Past Alcohol Use History: Daily Past Drug Use History: None Reported - Past Family History Father Family Medical History: CVA/TIA Additional Family Medical History / Comment(s): Father from emphysema in his 60s. Mother Family Medical History: Hypertension General Exam - General Exam Comments Initial Comments: This is a well-developed well-nourished awake alert oriented 3 female Limitations: no limitations General appearance: alert, anxious Head exam: Present: atraumatic, normocephalic, normal inspection Eye exam: Present: normal appearance, PERRL, EOMI. Absent: scleral icterus, conjunctival injection, periorbital swelling ENT exam: Present: normal exam, mucous membranes moist Neck exam: Present: normal inspection, full ROM. Absent: tenderness, meningismus, lymphadenopathy Respiratory exam: Present: normal lung sounds bilaterally, chest wall tenderness (Tenderness over the left anterior lateral chest wall no overt step-off crepitation no bruising seen. The pain appears be over the costal sternal costochondral margins though somewhat his lateral also.). Absent: respiratory distress, wheezes, rales, rhonchi, stridor Cardiovascular Exam: Present: regular rate, normal rhythm, normal heart sounds. Absent: systolic murmur, diastolic murmur, rubs, gallop, clicks GI/Abdominal exam: Present: soft, tenderness (Mild left upper quadrant tenderness palpation no guarding rebound masses or bruits), normal bowel sounds. Absent: distended, guarding, rebound, rigid Extremities exam: Present: normal inspection, full ROM, normal capillary refill. Absent: tenderness, pedal edema, joint swelling, calf tenderness Back exam: Present: normal inspection Neurological exam: Present: alert, oriented X3, CN II-XII intact Psychiatric exam: Present: normal affect, normal mood Skin exam: Present: warm, dry, intact, normal color. Absent: rash Course Vital Signs 08/17/21 07:30 Temperature 97.8 F Pulse Rate 76 Respiratory 18 Rate Blood Pressure 120/60 O2 Sat by Pulse 95 Oximetry Chest Pain MDM - MDM Imaging was reviewed evidence of a nondisplaced left seventh rib fracture consistent with the patient's pain did a long discussion with her regarding findings patient will be discharged on appropriate medication we did discuss risks of pneumonia and care for the fracture I did ask the patient about fever chills sweats phlegm production she states nothing on the ordinary from her usual daily symptoms. She does have inhalers at home. Also has nebulizers at home Disposition Clinical Impression: Fracture of seven ribs of left side, Rib pain on left side, History of COPD Disposition: HOME SELF-CARE Condition: Good Instructions (If sedation given, give patient instructions): Rib Fracture (ED) Prescriptions: Ibuprofen 800 mg PO Q6HR PRN #20 tablet PRN Reason: Pain Is patient prescribed a controlled substance at d/c from ED?: No Referrals: Florencio Langford MD [Primary Care Provider] - 1-2 days
[2021-08-17 08:17] LABS: Basophils % (A) 0 %; Eosinophils # (A) 0.1 k/uL (0-0.7); Eosinophils % (A) 2 %; HCT 41.8 % (34.0-46.0); HGB 14.4 gm/dL (11.4-16.0); Lymphocytes # (A) 1.5 k/uL (1.0-4.8); Lymphocytes % (A) 26 %; MCH 34.6 pg (25.0-35.0); MCHC 34.4 g/dL (31.0-37.0); MCV 100.6 fL (80.0-100.0); Mean Platelet Volume 7.7; Monocytes # (A) 0.5 k/uL (0-1.0); Monocytes % (A) 9 %; Neutrophils # (A) 3.4 k/uL (1.3-7.7); Neutrophils % (A) 61 %; Platelet Count 260 k/uL (150-450); RBC 4.16 m/uL (3.80-5.40); RDW 12.8 % (11.5-15.5); WBC 5.6 k/uL (3.8-10.6)
--- NOTE | 2021-08-17 08:37 | XR ---
EXAMINATION TYPE: XR chest 2V, XR ribs 4 views LT DATE OF EXAM: 08/17/2021 COMPARISON: 12/28/2020 HISTORY: 45-year-old female with chest pain from persistent cough FINDINGS: Chest: The cardiomediastinal silhouette, aorta, and pulmonary vasculature are within normal limits. Mild per ibronchial cuffing. Otherwise, lungs and pleural spaces are clear. ACF hardware. Left RIBS: There is subtle cortical irregularity involving the left anterior seventh rib on the oblique views. IMPRESSION: 1. Chest: Peribronchial cuffing suggests bronchitis or chronic asthma. No focal infiltrate seen at th is time. 2. Left ribs: Subtle cortical irregularity involving the left anterior seventh rib. Correlate for poi nt tenderness here to exclude a subtle nondisplaced fracture.
[2021-08-17 08:55] LABS: ALT 26 U/L (4-34); AST 33 U/L (14-36); African American GFR (CKD) >90 (>60 ml/min/1.73 sqM); Albumin 3.8 g/dL (3.5-5.0); Alkaline Phosphatase 142 U/L (38-126); Anion Gap 7 mmol/L; Blood Urea Nitrogen 2 mg/dL (7-17); Calcium 9.5 mg/dL (8.4-10.2); Carbon Dioxide 22 mmol/L (22-30); Chloride 106 mmol/L (98-107); Glucose 90 mg/dL (74-99); Lipase 49 U/L (23-300); Magnesium 1.8 mg/dL (1.6-2.3); Non-African American GFR(CKD) >90 (>60 ml/min/1.73 sqM); Potassium 4.4 mmol/L (3.5-5.1); Sodium 135 mmol/L (137-145); Total Bilirubin 0.9 mg/dL (0.2-1.3); Total Protein 7.2 g/dL (6.3-8.2)
[2021-08-17 09:03] LABS: Partial Thromboplastin Time 23.2 sec (22.0-30.0); Prothrombin Time 10.5 sec (9.0-12.0)
[2021-08-17 09:39] VITALS: BP 124/76; PULSE 78; RESP 20
== END 2021-08-17 09:39 | disposition home or self-care (01) ==
LOC: EC 07:28
DX: S22.42XA Multiple fractures of ribs, left side, initial encounter for closed fracture (principal); J44.9 Chronic obstructive pulmonary disease, unspecified; G47.33 Obstructive sleep apnea (adult) (pediatric); K21.9 Gastro-esophageal reflux disease without esophagitis; M06.9 Rheumatoid arthritis, unspecified; F17.200 Nicotine dependence, unspecified, uncomplicated; M19.90 Unspecified osteoarthritis, unspecified site; G47.30 Sleep apnea, unspecified; F41.9 Anxiety disorder, unspecified; F32.9 Major depressive disorder, single episode, unspecified; Z79.51 Long term (current) use of inhaled steroids; Z79.1 Long term (current) use of non-steroidal anti-inflammatories (NSAID); Z88.1 Allergy status to other antibiotic agents; X58.XXXA Exposure to other specified factors, initial encounter
CPT/HCPCS: 36415; 93005; 85379; 83880; 80053; 83690; 83735; 84484; 85025; 85610; 85730; 71100; 71046; 99284; 96374; J1885

== ENCOUNTER 2021-08-21 08:15 | Day surgery (SDC) | payer OTHER ==
[2021-08-17 14:40] VITALS: BMI 24.9
[2021-08-21 08:54] VITALS: RESP 16; TEMP 97.9
[2021-08-21] MEDS ORDERED: LIDOCAINE 1% (10MG/ML) FOR IV START INTRADERMA ONE (09:01)
[2021-08-21] MEDS ORDERED: PROPOFOL 10 MG/ML 20 ML VIAL IV ONE (09:35)
[2021-08-21] MEDS ORDERED: LIDOCAINE 1% INJ 10MG/ML (20 ML MDV) ONE (09:35)
--- NOTE | 2021-08-21 09:43 | P.GSHP ---
History of Present Illness H&P Date: 08/21/21 Chief Complaint: Diarrhea Is a 45-year-old female presents today for colonoscopy. She's had a six-month issue diarrhea. Denies any rectal bleeding. Past Medical History Past Medical History: Chest Pain / Angina, COPD, GERD/Reflux, Osteoarthritis (OA), Pneumonia, Rheumatoid Arthritis (RA), Sleep Apnea/CPAP/BIPAP Additional Past Medical History / Comment(s): currently has displaced left cracked rib was seen in ER this am on 08-17-21,Chronic neck and back pain, fluid in spine since cervical fusion, numbness and tingling bilateral hands, carpal tunnel, states Sjorgren's or lupus-Dr not sure., states positive for auto immune , past elevated LFT, bronchitis and pneumonia yearly, AUDRA-uses CPap- wears oxygen at 4L HS only, constant diarrhea, states nausea and vomiting., states hospitalized 12/28 -12/30/20 for sob and chest pain., states she passed out in the shower on 12/27/20 and hit her head. HAVING PROBLEMS SWALLOWING History of Any Multi-Drug Resistant Organisms: None Reported Past Surgical History: Back Surgery, Breast Surgery, Section, Cholecystectomy, Heart Catheterization, Tonsillectomy, Tubal Ligation, Uterine Ablation Additional Past Surgical History / Comment(s): D&C, cervical fusion, L breast benign biopsy, colonoscopy. EGD, HIATAL HERNIA REPAIR Past Anesthesia/Blood Transfusion Reactions: Previous Problems w/ Anesthesia, Family History of Problems w/ Anesthesia Additional Past Anesthesia/Blood Transfusion Reaction / Comment(s): states blood pressure dropped. pts mother has difficulty wAKing up and PONV. no hx blood transfusion Smoking Status: Current every day smoker - Past Family History Father Family Medical History: CVA/TIA Additional Family Medical History / Comment(s): Father from emphysema in his 60s. Mother Family Medical History: Hypertension Medications and Allergies Home Medications Medication Instructions Recorded Confirmed Type Pantoprazole [Protonix] 40 mg PO DAILY 10/15/20 08/21/21 History traZODone HCL 50 mg PO HS 10/15/20 08/21/21 History Sertraline HCl [Zoloft] 100 mg PO BID 12/28/20 08/21/21 History Albuterol Sulfate [Proair Hfa] 2 puff INHALATION RT-Q4H PRN 05/24/21 08/21/21 History Allergies Allergy/AdvReac Type Severity Reaction Status Date / Time cephalexin [From Keflex] Allergy Rash/Hives Verified 08/17/21 14:33 alprazolam [From Xanax] AdvReac Unknown STATES Verified 08/17/21 14:33 EFFECTS STAY WITH HER FOR DAYS. Surgical - Exam Vital Signs Temp Pulse Resp BP Pulse Ox 97.9 F 61 16 136/59 99 08/21/21 08:53 08/21/21 08:53 08/21/21 08:53 08/21/21 08:53 08/21/21 08:53 - General well developed, well nourished, no distress - Eyes PERRL - ENT normal pinna - Neck no masses - Respiratory normal expansion - Cardiovascular Rhythm: regular - Abdomen Abdomen: soft, non tender Assessment and Plan Assessment: Diarrhea. We'll perform colonoscopy.
--- NOTE | 2021-08-21 10:00 | P.OP ---
Date of Procedure: 08/21/21 Preoperative Diagnosis: Diarrhea Postoperative Diagnosis: Normal colonoscopy Poor colonic prep Procedure(s) Performed: Colonoscopy Anesthesia: MAC Surgeon: Ralph Robertson Pathology: none sent Condition: stable Disposition: PACU Description of Procedure: Patient's placed on the endoscopy table in the lateral position. She received IV sedation. Digital rectal exam was performed which revealed no. Scope was then placed patient anus and passed throughout the colon. There is a large amount of semisolid stool the colon. The prep was inadequate. The scope was withdrawn. The cecum could not be visualized due to large amount stool. The right colon appeared normal the transverse colon and descending and; appeared normal however the view was limited due to the large amount of semisolid stool. Scope was then brought back the rectum this was normal however the mucosa he was limited due to the large amount stool. Scope was withdrawn for patient.
[2021-08-21 10:14] VITALS: BP 104/45; PULSE 70
== END 2021-08-21 10:34 | disposition home or self-care (01) ==
LOC: ORWHC2ENDO 08:15
PROVIDERS: ATTEND Surgery
DX: R19.7 Diarrhea, unspecified (principal); J44.9 Chronic obstructive pulmonary disease, unspecified; I20.9 Angina pectoris, unspecified; K21.9 Gastro-esophageal reflux disease without esophagitis; M19.90 Unspecified osteoarthritis, unspecified site; M06.9 Rheumatoid arthritis, unspecified; Z87.01 Personal history of pneumonia (recurrent); G47.30 Sleep apnea, unspecified; S22.32XD Fracture of one rib, left side, subsequent encounter for fracture with routine healing; G89.29 Other chronic pain; M54.2 Cervicalgia; M54.9 Dorsalgia, unspecified; Z98.1 Arthrodesis status; G56.00 Carpal tunnel syndrome, unspecified upper limb; D89.89 Other specified disorders involving the immune mechanism, not elsewhere classified; G47.33 Obstructive sleep apnea (adult) (pediatric); F41.9 Anxiety disorder, unspecified; F32.9 Major depressive disorder, single episode, unspecified; F41.0 Panic disorder [episodic paroxysmal anxiety]; Z98.891 History of uterine scar from previous surgery; Z90.49 Acquired absence of other specified parts of digestive tract; Z98.51 Tubal ligation status; Z98.890 Other specified postprocedural states; F17.200 Nicotine dependence, unspecified, uncomplicated; Z82.3 Family history of stroke; Z83.6 Family history of other diseases of the respiratory system; Z79.899 Other long term (current) drug therapy; Z88.1 Allergy status to other antibiotic agents; Z88.8 Allergy status to other drugs, medicaments and biological substances
CPT/HCPCS: 81025; 45378; J2001; J2704

== ENCOUNTER → 2021-10-13 | Outpatient (CLI) | payer OTHER ==
--- NOTE | 2021-10-13 15:19 | NM ---
EXAMINATION TYPE: NM bone scan whole body DATE OF EXAM: 10/13/2021 COMPARISON: Chest and left-sided rib x-rays August 17, 2021 HISTORY: Left-sided rib pain. Left-sided rib fracture. Delayed whole-body scanning was performed following the injection of 23 mCi Tc 99m MDP. Images acqui red 3 hours post injection. Whole body images in anterior and posterior projection along with additio nal multiple projections of the thorax. FINDINGS: Corresponding to x-ray abnormality there is abnormal hypermetabolic uptake involving the anterolatera l left seventh rib consistent with subacute fracture injury. No additional abnormal hypermetabolic uptake is identified. IMPRESSION: As above.
== END | disposition home or self-care (01) ==
LOC: RADNMMAIN 10:31
PROVIDERS: ATTEND Family Medicine
DX: S22.32XD Fracture of one rib, left side, subsequent encounter for fracture with routine healing (principal)
CPT/HCPCS: 78306; A9503

== ENCOUNTER → 2021-11-16 | Outpatient (CLI) | payer OTHER ==
--- NOTE | 2021-11-16 15:29 | US ---
EXAMINATION TYPE: US pelvic complete DATE OF EXAM: 11/16/2021 COMPARISON: US 01/23/2019 CLINICAL HISTORY: N93.8 Other specified abnormal uterine and vaginal. TECHNIQUE: . Transabdominal sonographic images of the pelvis were acquired. Date of LMP: Patient unsure EXAM MEASUREMENTS: Uterus: 8.2 x 5.9 x 5.3 cm Endometrial Stripe: 0.7 cm Right Ovary: 2.2 x 1.9 x 1.9 cm Left Ovary: 2.3 x 1.3 x 1.3 cm 1. Uterus: anteverted, bulky, heterogeneous with 2.8 x 2.7 x 2.8cm hypoechoic area posterior fundus 2. Endometrium: Not well defined its entirety, no endovaginal scanning was performed 3. Right Ovary: wnl 4. Left Ovary: wnl 5. Bilateral Adnexa: wnl 6. Posterior cul-de-sac: wnl IMPRESSION: Findings suggest fibroid uterus.
== END | disposition home or self-care (01) ==
LOC: RADUSWWP 14:11
PROVIDERS: ATTEND Obstetrics & Gynecology
DX: N93.8 Other specified abnormal uterine and vaginal bleeding (principal)
CPT/HCPCS: 76856

== ENCOUNTER 2021-12-05 17:01 | Emergency (ER) | payer OTHER ==
[2021-12-05] MEDS ORDERED: LORazepam 2 MG/ML INJ IV STA (18:29)
[2021-12-05] MEDS ORDERED: IBUPROFEN 600 MG TAB PO STA (18:30)
[2021-12-05] MEDS ORDERED: ACETAMINOPHEN TAB 500 MG TAB PO STA (18:30)
[2021-12-05] MEDS ORDERED: SODIUM CHLORIDE 0.9% 500 ML 500 ML IV ONE (18:31)
[2021-12-05] MEDS ORDERED: SODIUM CHLORIDE 0.9% 1,000 ML IV ONE (18:31)
[2021-12-05] MEDS: DIPHENOX-ATROP STARTER PACK 8 TAB BTL PO STA ×2 (18:41→19:42)
[2021-12-05 18:45] LABS: Basophils % (A) 1 %; Eosinophils # (A) 0.2 k/uL (0-0.7); Eosinophils % (A) 3 %; HGB 14.2 gm/dL (11.4-16.0); Lymphocytes # (A) 1.8 k/uL (1.0-4.8); Lymphocytes % (A) 23 %; MCH 33.9 pg (25.0-35.0); MCHC 33.8 g/dL (31.0-37.0); MCV 100.1 fL (80.0-100.0); Mean Platelet Volume 8.6; Monocytes # (A) 0.6 k/uL (0-1.0); Monocytes % (A) 8 %; Neutrophils # (A) 5.1 k/uL (1.3-7.7); Neutrophils % (A) 64 %; Platelet Count 227 k/uL (150-450); RDW 12.3 % (11.5-15.5); WBC 7.9 k/uL (3.8-10.6)
[2021-12-05 18:54] LABS: ALT 13 U/L (4-34); AST 20 U/L (14-36); African American GFR (CKD) >90 (>60 ml/min/1.73 sqM); Albumin 4.1 g/dL (3.5-5.0); Alkaline Phosphatase 88 U/L (38-126); Anion Gap 7 mmol/L; Blood Urea Nitrogen 4 mg/dL (7-17); Calcium 9.7 mg/dL (8.4-10.2); Carbon Dioxide 18 mmol/L (22-30); Chloride 111 mmol/L (98-107); Glucose 80 mg/dL (74-99); Non-African American GFR(CKD) >90 (>60 ml/min/1.73 sqM); Potassium 4.2 mmol/L (3.5-5.1); Sodium 136 mmol/L (137-145); Total Bilirubin 0.8 mg/dL (0.2-1.3); Total Protein 7.6 g/dL (6.3-8.2)
--- NOTE | 2021-12-05 19:13 | ED ---
General Adult HPI - General Chief complaint: Shortness of Breath Stated complaint: SOB, diarrhea Time Seen by Provider: 12/05/21 17:15 Source: patient, RN notes reviewed, old records reviewed Mode of arrival: ambulatory Limitations: no limitations - History of Present Illness Initial comments: This a 46-year-old female who was diagnosed with COVID on November 21. Patient states she chronically has diarrhea but since November 21 she's been having severe diarrhea feels extremely dehydrated and complains of general body aches. Patient states she still spiking a fever. Patient denies any nausea. Patient states her anxiety is extremely bad and she would like something for that as well. Patient states she has quite a bit of abdominal cramping but no actual abdominal pain. Patient states she feels short of breath even though her pulse ox is normal. Patient states she's been wearing her oxygen at home anyhow. Patient's pulse ox here is 97% to 98% on room air. - Related Data Home Medications Medication Instructions Recorded Confirmed Pantoprazole [Protonix] 40 mg PO DAILY 10/15/20 11/20/21 traZODone HCL 50 mg PO HS 10/15/20 11/20/21 Sertraline HCl [Zoloft] 50 mg PO DAILY 12/28/20 11/20/21 Albuterol Sulfate [Proair Hfa] 2 puff INHALATION RT-Q4H PRN 05/24/21 11/20/21 ALPRAZolam [Xanax] 0.5 mg PO BID PRN 11/20/21 11/20/21 Acetaminophen [Tylenol] 1,000 mg PO Q4-6H PRN 11/20/21 11/20/21 Albuterol Nebulized [Ventolin 2.5 mg INHALATION RT-QID PRN 11/20/21 11/20/21 Nebulized] Azithromycin [Zithromax Z-pack (6 See Taper PO DIRECTED 11/20/21 11/20/21 tabs)] Budesonide/Glycopyr/Formoterol 2 puff INHALATION RT-BID 11/20/21 11/20/21 [Breztri Aerosphere Inhaler] Dicyclomine HCl 20 mg PO TID 11/20/21 11/20/21 HYDROcodone/APAP 10-325MG [[place] 1 tab PO TID PRN 11/20/21 11/20/21 10-325] Ibuprofen [Motrin] 800 mg PO Q6H PRN 11/20/21 11/20/21 Multivitamin [Multivitamins Adult 1 tab PO DAILY 11/20/21 11/20/21 Gummies] Sertraline [Zoloft] 100 mg PO HS 11/20/21 11/20/21 Allergies Allergy/AdvReac Type Severity Reaction Status Date / Time cephalexin [From Keflex] Allergy Rash/Hives Verified 12/05/21 17:18 Review of Systems ROS Statement: Those systems with pertinent positive or pertinent negative responses have been documented in the HPI. ROS Other: All systems not noted in ROS Statement are negative. Past Medical History Past Medical History: Chest Pain / Angina, COPD, GERD/Reflux, Osteoarthritis (OA), Pneumonia, Rheumatoid Arthritis (RA), Sleep Apnea/CPAP/BIPAP Additional Past Medical History / Comment(s): Chronic neck and back pain, fluid in spine since cervical fusion, numbness and tingling bilateral hands, carpal tunnel, states Sjorgren's or lupus-Dr not sure., states positive for auto immune , past elevated LFT, bronchitis and pneumonia yearly, AUDRA-does not tolerate CPap-wears oxygen at HS only, constant diarrhea, states nausea and vomiting., states hospitalized 12/28 -12/30/20 for sob and chest pain., states she passed out in the shower on 12/27/20 and hit her head. HAVING PROBLEMS SWALLOWING. covid-19 - dx 11/18/2020 History of Any Multi-Drug Resistant Organisms: None Reported Past Surgical History: Back Surgery, Breast Surgery, Section, Heart Catheterization, Tonsillectomy, Tubal Ligation, Uterine Ablation Additional Past Surgical History / Comment(s): D&C, cervical fusion, L breast benign biopsy, colonoscopy. EGD, HIATAL HERNIA REPAIR Past Anesthesia/Blood Transfusion Reactions: Previous Problems w/ Anesthesia, Family History of Problems w/ Anesthesia Additional Past Anesthesia/Blood Transfusion Reaction / Comment(s): states blood pressure dropped. pts mother has difficulty wAKing up and PONV Past Psychological History: Anxiety, Depression, Panic Disorder Smoking Status: Current every day smoker Past Alcohol Use History: Daily Past Drug Use History: None Reported - Past Family History Father Family Medical History: CVA/TIA Additional Family Medical History / Comment(s): Father from emphysema in his 60s. Mother Family Medical History: Hypertension General Exam - General Exam Comments Initial Comments: GENERAL: Patient is well-developed and well-nourished. Patient is nontoxic and well- hydrated and is in mild distress. ENT: Neck is soft and supple. No significant lymphadenopathy is noted. Oropharynx is clear. Moist mucous membranes. Neck has full range of motion without eliciting any pain. EYES: The sclera were anicteric and conjunctiva were pink and moist. Extraocular movements were intact and pupils were equal round and reactive to light. Eyelids were unremarkable. PULMONARY: Unlabored respirations. Good breath sounds bilaterally. No audible rales rhonchi or wheezing was noted. CARDIOVASCULAR: There is a regular rate and rhythm without any murmurs gallops or rubs. ABDOMEN: Soft and nontender with normal bowel sounds. SKIN: Skin is clear with no lesions or rashes and otherwise unremarkable. NEUROLOGIC: Patient is alert and oriented x3. Cranial nerves II through XII are grossly intact. Motor and sensory are also intact. Normal speech, volume and content. Symmetrical smile. MUSCULOSKELETAL: Normal extremities with adequate strength and full range of motion. LYMPHATICS: No significant lymphadenopathy is noted PSYCHIATRIC: Patient is moderately anxious Limitations: no limitations Course Vital Signs 12/05/21 12/05/21 12/05/21 17:12 17:51 19:01 Temperature 100.4 F H Pulse Rate 85 82 Respiratory 18 20 18 Rate Blood Pressure 112/49 102/49 O2 Sat by Pulse 97 100 Oximetry 12/05/21 20:00 Temperature Pulse Rate 68 Respiratory 17 Rate Blood Pressure 103/49 O2 Sat by Pulse 99 Oximetry Medical Decision Making - Medical Decision Making Patient received Ativan that she was requesting when she came in. Patient also received Lomotil and has not had any diarrhea since. I will back into the room and the patient was sleeping and when I woke her up she was upset that she did not receive any pain medication. I told her she received Tylenol and Motrin and she was angry that that's all she got. Patient stated that's fine just let me go home. - Lab Data Result diagrams: 12/05/21 18:21 12/05/21 18:21 Lab Results 12/05/21 12/05/21 Range/Units 18:21 18:21 WBC 7.9 (3.8-10.6) k/uL RBC 4.20 (3.80-5.40) m/uL Hgb 14.2 (11.4-16.0) gm/dL Hct 42.0 (34.0-46.0) % MCV 100.1 H (80.0-100.0) fL MCH 33.9 (25.0-35.0) pg MCHC 33.8 (31.0-37.0) g/dL RDW 12.3 (11.5-15.5) % Plt Count 227 (150-450) k/uL MPV 8.6 Neutrophils % 64 % Lymphocytes % 23 % Monocytes % 8 % Eosinophils % 3 % Basophils % 1 % Neutrophils # 5.1 (1.3-7.7) k/uL Lymphocytes # 1.8 (1.0-4.8) k/uL Monocytes # 0.6 (0-1.0) k/uL Eosinophils # 0.2 (0-0.7) k/uL Basophils # 0.0 (0-0.2) k/uL Sodium 136 L (137-145) mmol/L Potassium 4.2 (3.5-5.1) mmol/L Chloride 111 H (98-107) mmol/L Carbon Dioxide 18 L (22-30) mmol/L Anion Gap 7 mmol/L BUN 4 L (7-17) mg/dL Creatinine 0.66 (0.52-1.04) mg/dL Est GFR (CKD-EPI)AfAm >90 (>60 ml/min/1.73 sqM) Est GFR (CKD-EPI)NonAf >90 (>60 ml/min/1.73 sqM) Glucose 80 (74-99) mg/dL Calcium 9.7 (8.4-10.2) mg/dL Total Bilirubin 0.8 (0.2-1.3) mg/dL AST 20 (14-36) U/L ALT 13 (4-34) U/L Alkaline Phosphatase 88 (38-126) U/L Total Protein 7.6 (6.3-8.2) g/dL Albumin 4.1 (3.5-5.0) g/dL Disposition Clinical Impression: Diarrhea, Anxiety Disposition: HOME SELF-CARE Instructions (If sedation given, give patient instructions): Chronic Diarrhea (ED) Is patient prescribed a controlled substance at d/c from ED?: No Referrals: Florencio Langford MD [Primary Care Provider] - 1-2 days Time of Disposition: 20:37
[2021-12-05] MEDS ORDERED: DIPHENOX-ATROP 2.5-0.025 MG 1 EACH TAB PO STA (19:15)
--- NOTE | 2021-12-05 19:54 | XR ---
EXAMINATION TYPE: XR chest 2V DATE OF EXAM: 12/05/2021 7:37 PM COMPARISON:Chest radiographs from 1021 TECHNIQUE: Frontal view of the chest. CLINICAL INDICATION:Female, 46 years old with history of Difficulty breathing ; FINDINGS: Lungs/Pleura: There is no evidence of pleural effusion, focal consolidation, or pneumothorax. Pulmonary vascularity: Unremarkable. Heart/mediastinum: Cardiomediastinal silhouette is unremarkable. Musculoskeletal:No acute osseous pathology. IMPRESSION: No acute cardiopulmonary disease/process.
[2021-12-05 20:02] VITALS: RESP 17
[2021-12-05] MEDS ORDERED: DIPHENOX-ATROP STARTER PACK 8 TAB BTL PO STA (20:37)
[2021-12-05 21:14] VITALS: BP 110/68; PULSE 77; TEMP 98.6
== END 2021-12-05 21:12 | disposition home or self-care (01) ==
LOC: EC 17:01
DX: R19.7 Diarrhea, unspecified (principal); F41.9 Anxiety disorder, unspecified; J44.9 Chronic obstructive pulmonary disease, unspecified; K21.9 Gastro-esophageal reflux disease without esophagitis; M06.9 Rheumatoid arthritis, unspecified; F32.A Depression, unspecified; F17.200 Nicotine dependence, unspecified, uncomplicated; Z79.51 Long term (current) use of inhaled steroids; Z79.1 Long term (current) use of non-steroidal anti-inflammatories (NSAID); Z79.899 Other long term (current) drug therapy
CPT/HCPCS: 36415; 80053; 85025; 87324; 71046; 99285; 96374; 96361; J2060

== ENCOUNTER 2022-01-26 16:57 | Emergency (ER) | payer OTHER ==
[2022-01-26 17:18] VITALS: RESP 18; TEMP 98.1
[2022-01-26 18:19] LABS: Basophils % (A) 0 %; Eosinophils # (A) 0.2 k/uL (0-0.7); Eosinophils % (A) 2 %; HCT 40.2 % (34.0-46.0); HGB 13.7 gm/dL (11.4-16.0); Lymphocytes # (A) 2.6 k/uL (1.0-4.8); Lymphocytes % (A) 41 %; MCH 33.7 pg (25.0-35.0); MCV 99.1 fL (80.0-100.0); Mean Platelet Volume 8.6; Monocytes # (A) 0.5 k/uL (0-1.0); Monocytes % (A) 7 %; Neutrophils # (A) 2.9 k/uL (1.3-7.7); Neutrophils % (A) 46 %; Platelet Count 220 k/uL (150-450); RBC 4.06 m/uL (3.80-5.40); RDW 12.8 % (11.5-15.5); WBC 6.3 k/uL (3.8-10.6)
[2022-01-26 18:28] LABS: ALT 26 U/L (4-34); AST 26 U/L (14-36); African American GFR (CKD) >90 (>60 ml/min/1.73 sqM); Albumin 4.2 g/dL (3.5-5.0); Alcohol <10 mg/dL; Alkaline Phosphatase 56 U/L (38-126); Anion Gap 8 mmol/L; Blood Urea Nitrogen 12 mg/dL (7-17); Calcium 9.3 mg/dL (8.4-10.2); Carbon Dioxide 25 mmol/L (22-30); Chloride 103 mmol/L (98-107); Glucose 106 mg/dL (74-99); Non-African American GFR(CKD) >90 (>60 ml/min/1.73 sqM); Potassium 3.5 mmol/L (3.5-5.1); Sodium 136 mmol/L (137-145); Total Bilirubin 0.4 mg/dL (0.2-1.3); Total Protein 7.2 g/dL (6.3-8.2)
--- NOTE | 2022-01-26 19:03 | ED ---
General Adult HPI - General Source: patient, RN notes reviewed, old records reviewed Mode of arrival: wheelchair Limitations: no limitations <Enrique Robertson - Last Filed: 01/26/22 20:04> <Yajaira Erwin - Last Filed: 01/26/22 23:06> - General Chief complaint: Psychiatric Symptoms Stated complaint: Mental health eval. Time Seen by Provider: 01/26/22 18:01 - History of Present Illness Initial comments: 46 yo female presenting for mental health evaluation. She states she's had some anxiety, depression and what she describes as a psychotic break over the past week. She denies suicidal or homicidal ideation. She is requesting psychiatric evaluation. She denies ingestion but is somewhat sleepy during the initial evaluation. She states she is on antidepressant medications but is unable to tell me what medication she is on. She denies illicit drugs. Denies alcohol. (Enrique Robertson) - Related Data Home Medications Medication Instructions Recorded Confirmed Pantoprazole [Protonix] 40 mg PO DAILY 10/15/20 01/26/22 traZODone HCL 50 mg PO HS 10/15/20 01/26/22 Albuterol Sulfate [Proair Hfa] 2 puff INHALATION RT-Q4H PRN 05/24/21 01/26/22 ALPRAZolam [Xanax] 0.5 mg PO TID PRN 11/20/21 01/26/22 Acetaminophen [Tylenol] 1,000 mg PO Q4-6H PRN 11/20/21 01/26/22 Budesonide/Glycopyr/Formoterol 1 puff INHALATION RT-BID 11/20/21 01/26/22 [Breztri Aerosphere Inhaler] Dicyclomine HCl 20 mg PO TID 11/20/21 01/26/22 HYDROcodone/APAP 10-325MG [[place] 1 tab PO TID PRN 11/20/21 01/26/22 10-325] Multivitamin [Multivitamins Adult 1 tab PO DAILY 11/20/21 01/26/22 Gummies] Sertraline [Zoloft] 100 mg PO BID 11/20/21 01/26/22 Allergies Allergy/AdvReac Type Severity Reaction Status Date / Time cephalexin [From Keflex] Allergy Rash/Hives Verified 01/26/22 20:27 Review of Systems ROS Other: All systems not noted in ROS Statement are negative. <Enrique Robertson - Last Filed: 01/26/22 20:04> ROS Other: All systems not noted in ROS Statement are negative. <RipYajaira P - Last Filed: 01/26/22 23:06> ROS Statement: Those systems with pertinent positive or pertinent negative responses have been documented in the HPI. Past Medical History Past Medical History: Chest Pain / Angina, COPD, GERD/Reflux, Osteoarthritis (OA), Pneumonia, Rheumatoid Arthritis (RA), Sleep Apnea/CPAP/BIPAP Additional Past Medical History / Comment(s): Chronic neck and back pain, fluid in spine since cervical fusion, numbness and tingling bilateral hands, carpal tunnel, states Sjorgren's or lupus-Dr not sure., states positive for auto immune , past elevated LFT, bronchitis and pneumonia yearly, AUDRA-does not tolerate CPap-wears oxygen at HS only, constant diarrhea, states nausea and vomiting., states hospitalized 12/28 -12/30/20 for sob and chest pain., states she passed out in the shower on 12/27/20 and hit her head. HAVING PROBLEMS SWALLOWING. covid-19 - dx 11/18/2020 History of Any Multi-Drug Resistant Organisms: None Reported Past Surgical History: Back Surgery, Breast Surgery, Section, Heart Catheterization, Tonsillectomy, Tubal Ligation, Uterine Ablation Additional Past Surgical History / Comment(s): D&C, cervical fusion, L breast benign biopsy, colonoscopy. EGD, HIATAL HERNIA REPAIR Past Anesthesia/Blood Transfusion Reactions: Previous Problems w/ Anesthesia, Family History of Problems w/ Anesthesia Additional Past Anesthesia/Blood Transfusion Reaction / Comment(s): states blood pressure dropped. pts mother has difficulty wAKing up and PONV Past Psychological History: Anxiety, Depression, Panic Disorder Smoking Status: Current every day smoker Past Alcohol Use History: Daily Past Drug Use History: None Reported - Past Family History Father Family Medical History: CVA/TIA Additional Family Medical History / Comment(s): Father from emphysema in his 60s. Mother Family Medical History: Hypertension <Enrique Robertson - Last Filed: 01/26/22 20:04> General Exam Limitations: no limitations General appearance: lethargic Head exam: Present: atraumatic, normocephalic Eye exam: Present: normal appearance, PERRL ENT exam: Present: normal exam Neck exam: Present: normal inspection. Absent: tenderness Respiratory exam: Present: normal lung sounds bilaterally. Absent: respiratory distress Cardiovascular Exam: Present: regular rate, normal rhythm GI/Abdominal exam: Present: soft. Absent: distended, tenderness, guarding Extremities exam: Present: normal inspection, normal capillary refill Neurological exam: Present: alert, oriented X3, CN II-XII intact. Absent: motor sensory deficit Psychiatric exam: Present: depressed. Absent: suicidal ideation Skin exam: Present: warm, dry, intact. Absent: cyanosis, diaphoretic <Enrique Robertson - Last Filed: 01/26/22 20:04> Course <Enrique Robertson - Last Filed: 01/26/22 20:04> Vital Signs 01/26/22 01/26/22 17:15 21:00 Temperature 98.1 F Pulse Rate 64 64 Respiratory 18 18 Rate Blood Pressure 94/50 100/60 O2 Sat by Pulse 100 98 Oximetry - Reevaluation(s) Reevaluation #1: 01/26/22 20:04 Patient cleared for EPS evaluation. (Enrique Robertson) Medical Decision Making - Lab Data Result diagrams: 01/26/22 18:14 01/26/22 18:14 <Enrique Robertson - Last Filed: 01/26/22 20:04> - Lab Data Result diagrams: 01/26/22 18:14 01/26/22 18:14 <Yajaira Erwin - Last Filed: 01/26/22 23:06> - Medical Decision Making The patient was medically cleared for evaluation by psychiatry was evaluated by the emergency psychiatric services nerves, after evaluation it was determined the patient is suffering from alcohol abuse and withdrawal symptoms. Patient was treated with Librium. Patient will be discharged home and she was provided with printed information on multiple outpatient treatment facilities at her request. (Yajaira Erwin) - Lab Data Lab Results 01/26/22 01/26/22 Range/Units 18:14 18:14 WBC 6.3 (3.8-10.6) k/uL RBC 4.06 (3.80-5.40) m/uL Hgb 13.7 (11.4-16.0) gm/dL Hct 40.2 (34.0-46.0) % MCV 99.1 (80.0-100.0) fL MCH 33.7 (25.0-35.0) pg MCHC 34.0 (31.0-37.0) g/dL RDW 12.8 (11.5-15.5) % Plt Count 220 (150-450) k/uL MPV 8.6 Neutrophils % 46 % Lymphocytes % 41 % Monocytes % 7 % Eosinophils % 2 % Basophils % 0 % Neutrophils # 2.9 (1.3-7.7) k/uL Lymphocytes # 2.6 (1.0-4.8) k/uL Monocytes # 0.5 (0-1.0) k/uL Eosinophils # 0.2 (0-0.7) k/uL Basophils # 0.0 (0-0.2) k/uL Sodium 136 L (137-145) mmol/L Potassium 3.5 (3.5-5.1) mmol/L Chloride 103 (98-107) mmol/L Carbon Dioxide 25 (22-30) mmol/L Anion Gap 8 mmol/L BUN 12 (7-17) mg/dL Creatinine 0.70 (0.52-1.04) mg/dL Est GFR (CKD-EPI)AfAm >90 (>60 ml/min/1.73 sqM) Est GFR (CKD-EPI)NonAf >90 (>60 ml/min/1.73 sqM) Glucose 106 H (74-99) mg/dL Calcium 9.3 (8.4-10.2) mg/dL Total Bilirubin 0.4 (0.2-1.3) mg/dL AST 26 (14-36) U/L ALT 26 (4-34) U/L Alkaline Phosphatase 56 (38-126) U/L Total Protein 7.2 (6.3-8.2) g/dL Albumin 4.2 (3.5-5.0) g/dL Serum Alcohol <10 mg/dL Disposition <Enrique Robertson N - Last Filed: 01/26/22 20:04> Is patient prescribed a controlled substance at d/c from ED?: No <Yajaira Erwin - Last Filed: 01/26/22 23:06> Clinical Impression: Depression, Alcohol abuse Disposition: HOME SELF-CARE Condition: Stable Additional Instructions: Follow with outpatient substance abuse and mental health as advised by emergency psychiatric services nurse. Referrals: Florencio Langford MD [Primary Care Provider] - 1-2 days
[2022-01-26] MEDS ORDERED: chlordiazePOXIDE 25 MG CAP PO ONE (21:50)
[2022-01-26 23:19] VITALS: BP 104/61; PULSE 62
== END 2022-01-26 23:22 | disposition home or self-care (01) ==
LOC: EC 16:57
DX: F32.A Depression, unspecified (principal); F10.10 Alcohol abuse, uncomplicated; F41.9 Anxiety disorder, unspecified; J44.9 Chronic obstructive pulmonary disease, unspecified; K21.9 Gastro-esophageal reflux disease without esophagitis; M06.9 Rheumatoid arthritis, unspecified; F17.200 Nicotine dependence, unspecified, uncomplicated; Z88.1 Allergy status to other antibiotic agents; Z86.16 Personal history of COVID-19; Z98.51 Tubal ligation status; Y90.0 Blood alcohol level of less than 20 mg/100 ml
CPT/HCPCS: 99284; 82075; 36415; 80053; 85025; G0480; 80320

== ENCOUNTER 2022-01-27 16:11 | Emergency (ER) | payer OTHER ==
[2022-01-27 17:04] VITALS: RESP 16; TEMP 98
[2022-01-27] MEDS ORDERED: chlordiazePOXIDE 25 MG CAP PO STA (18:24)
[2022-01-27] MEDS ORDERED: HYDROcodone/APAP 5-325MG 1 EACH TAB PO STA (18:25)
--- NOTE | 2022-01-27 18:28 | ED ---
General Adult HPI - General Chief complaint: Psychiatric Symptoms Stated complaint: Mental health eval Time Seen by Provider: 01/27/22 18:03 Source: patient, RN notes reviewed, old records reviewed Mode of arrival: ambulatory Limitations: no limitations - History of Present Illness Initial comments: Patient is a 46-year-old female with past medical history remarkable for COPD, anxiety, alcohol abuse who recently left rehab who presents today after being evaluated last night for increased stress and anxiety. Patient was given Librium yesterday and discharged home after being evaluated by psychiatry, and was diagnosed with alcohol abuse as well as withdrawal symptoms. Upon discharge she remained within normal limits. She is cleared for discharge home. Presents tonight seeking a prescription for the Librium as she states did help. She denies any numbness, weakness. Denies any chest pain, shortness of breath. Denies any nausea, vomiting, abdominal pain. Denies drinking. Denies any suicidal or homicidal ideations, attempts, plans. States she does not believe she needs to speak with psychiatry, however does state that she is having some panic episodes at home and is requesting the Librium and she states it did seem to help with her symptoms. She has no other acute complaints or requests at this time. States she has chronic lupus type pain and is requesting a [place] if possible. - Related Data Home Medications Medication Instructions Recorded Confirmed Pantoprazole [Protonix] 40 mg PO DAILY 10/15/20 01/26/22 traZODone HCL 50 mg PO HS 10/15/20 01/26/22 Albuterol Sulfate [Proair Hfa] 2 puff INHALATION RT-Q4H PRN 05/24/21 01/26/22 ALPRAZolam [Xanax] 0.5 mg PO TID PRN 11/20/21 01/26/22 Acetaminophen [Tylenol] 1,000 mg PO Q4-6H PRN 11/20/21 01/26/22 Budesonide/Glycopyr/Formoterol 1 puff INHALATION RT-BID 11/20/21 01/26/22 [Breztri Aerosphere Inhaler] Dicyclomine HCl 20 mg PO TID 11/20/21 01/26/22 HYDROcodone/APAP 10-325MG [[place] 1 tab PO TID PRN 11/20/21 01/26/22 10-325] Multivitamin [Multivitamins Adult 1 tab PO DAILY 11/20/21 01/26/22 Gummies] Sertraline [Zoloft] 100 mg PO BID 11/20/21 01/26/22 Previous Rx's Medication Instructions Recorded chlordiazePOXIDE HCl [Librium] 25 mg PO BID PRN 2 Days #4 capsule 01/27/22 Allergies Allergy/AdvReac Type Severity Reaction Status Date / Time cephalexin [From Keflex] Allergy Rash/Hives Verified 01/27/22 17:04 Review of Systems ROS Statement: Those systems with pertinent positive or pertinent negative responses have been documented in the HPI. Review of Systems: CONST: Denies fever EYES: Denies blurry vision ENT: Denies nasal congestion C/V: Denies Chest pain RESP: Denies shortness of breath GI: Denies abdominal pain : Denies dysuria SKIN: Denies rash. MSK: Denies joint pain. NEURO: Denies headache PSYCH: Denies suicidal and homicidal ideations/plans/attempts. Denies visual or auditory hallucinations. sHe endorses intermittent anxiety. ROS Other: All systems not noted in ROS Statement are negative. Past Medical History Past Medical History: Chest Pain / Angina, COPD, GERD/Reflux, Osteoarthritis (OA), Pneumonia, Rheumatoid Arthritis (RA), Sleep Apnea/CPAP/BIPAP Additional Past Medical History / Comment(s): Chronic neck and back pain, fluid in spine since cervical fusion, numbness and tingling bilateral hands, carpal tunnel, states Sjorgren's or lupus-Dr not sure., states positive for auto immune , past elevated LFT, bronchitis and pneumonia yearly, AUDRA-does not tolerate CPap-wears oxygen at HS only, constant diarrhea, states nausea and vomiting., states hospitalized 12/28 -12/30/20 for sob and chest pain., states she passed out in the shower on 12/27/20 and hit her head. HAVING PROBLEMS SWALLOWING. covid-19 - dx 11/18/2020 History of Any Multi-Drug Resistant Organisms: None Reported Past Surgical History: Back Surgery, Breast Surgery, Section, Heart Catheterization, Tonsillectomy, Tubal Ligation, Uterine Ablation Additional Past Surgical History / Comment(s): D&C, cervical fusion, L breast benign biopsy, colonoscopy. EGD, HIATAL HERNIA REPAIR Past Anesthesia/Blood Transfusion Reactions: Previous Problems w/ Anesthesia, Family History of Problems w/ Anesthesia Additional Past Anesthesia/Blood Transfusion Reaction / Comment(s): states blood pressure dropped. pts mother has difficulty wAKing up and PONV Past Psychological History: Anxiety, Depression, Panic Disorder Smoking Status: Current every day smoker Past Alcohol Use History: Daily Past Drug Use History: None Reported - Past Family History Father Family Medical History: CVA/TIA Additional Family Medical History / Comment(s): Father from emphysema in his 60s. Mother Family Medical History: Hypertension General Exam - General Exam Comments Initial Comments: General: Appears in no acute distress. HEAD: Normal with no signs of head trauma. EYES: PERRLA, EOMI, conjunctiva normal, no discharge. ENT: Hearing grossly intact, normal oropharynx. RESPIRATORY: Clear breath sounds bilaterally. No wheezes, rales, or rhonchi. C/V: Regular rate and rhythm. S1 and S2 auscultated, no edema, peripheral pulses 2+ and intact throughout ABD: Abd is soft, nontender, nondistended EXT: Normal range of motion, no obvious deformity SKIN: No rashes or lesions observed on exposed skin. NEURO: Alert and oriented x 4. Cranial nerves II-XII intact. No focal sensory or strength deficits. No tremors. Limitations: no limitations Course Vital Signs 01/27/22 17:01 Temperature 98 F Pulse Rate 81 Respiratory 16 Rate Blood Pressure 122/67 O2 Sat by Pulse 100 Oximetry Medical Decision Making - Medical Decision Making Based on the patient's presentation and physical exam, she does appear to be having intermittent anxiety. She otherwise appears within normal limits. She does not appear acutely intoxicated. She does not seem to be acutely suicidal or homicidal. She is very dry and forthcoming, stating she is requesting a Librium as needed for anxiety at home until she can follow up on Saturday with [facility]. I do not believe that laboratory studies or imaging required the patient this time as she has no other acute complaints. She'll be given a dose of Librium here in the department as well as a prescription. She will receive a total of 2 days of Librium, 25 mg twice a day. She was in agreement this plan. She will follow-up with [facility] on Saturday. I will provide the patient with a prescription for Librium 25 mg, total of 4 tablets. I instructed the patient to follow up with their PCP in the next 3 days. I instructed the patient to follow up with [facility] on Saturday.. I explained that the patient should return to the emergency department if they experience any worsening symptoms. Strict return precautions were discussed with the patient. The patient expressed understanding of these instructions. I answered all questions that the patient had. The patient was discharged home in good condition with their prescriptions and follow up information. Disposition Clinical Impression: Acute anxiety Disposition: HOME SELF-CARE Condition: Good Prescriptions: chlordiazePOXIDE HCl [Librium] 25 mg PO BID PRN 2 Days #4 capsule PRN Reason: Anxiety Is patient prescribed a controlled substance at d/c from ED?: No Referrals: Florencio Langford MD [Primary Care Provider] - 1-2 days
[2022-01-27 19:26] VITALS: BP 98/61; PULSE 77
== END 2022-01-27 19:55 | disposition home or self-care (01) ==
LOC: EC 16:11
DX: F41.9 Anxiety disorder, unspecified (principal); F17.200 Nicotine dependence, unspecified, uncomplicated; J44.9 Chronic obstructive pulmonary disease, unspecified; K21.9 Gastro-esophageal reflux disease without esophagitis; M19.90 Unspecified osteoarthritis, unspecified site; M06.9 Rheumatoid arthritis, unspecified; Z88.1 Allergy status to other antibiotic agents; Z79.899 Other long term (current) drug therapy; Z79.51 Long term (current) use of inhaled steroids
CPT/HCPCS: 99283

== ENCOUNTER → 2022-01-30 | Outpatient (CLI) | payer OTHER ==
--- NOTE | 2022-01-30 14:10 | XR ---
EXAMINATION TYPE: XR ankle complete LT, XR foot complete LT DATE OF EXAM: 01/30/2022 CLINICAL HISTORY: Stepping injury with pain TECHNIQUE: Frontal, lateral and oblique images of the left ankle and foot are obtained. COMPARISON: Left ankle and foot x-ray April 12, 2018. FINDINGS: There is no acute fracture/dislocation evident in the left ankle. The ankle mortise appea rs within normal limits. Mild soft tissue swelling over the lateral malleolus. There is no acute fracture or dislocation evident in the left foot. Some flexion in the toes is redem onstrated. The joint spaces in the left foot are preserved. Overlying soft tissue is unremarkable. IMPRESSION: There is no acute fracture or dislocation in the left ankle or foot.
== END | disposition home or self-care (01) ==
LOC: RADXRMAIN 13:26
PROVIDERS: ATTEND Family Medicine
DX: S99.912A Unspecified injury of left ankle, initial encounter (principal); M25.572 Pain in left ankle and joints of left foot; X58.XXXA Exposure to other specified factors, initial encounter